=== PATIENT | male | born 1950 | race Caucasian/White ===

== ENCOUNTER 2016-09-01 06:02 | Inpatient (IN) | payer MEDICARE ==
[~2016-09-01] VITALS: Ht 182.9 cm; Wt 70.8 kg
[2016-09-01] VITALS (21 sets, daily range): BP systolic 76–199; BP diastolic 50–102
[~2016-09-01 06:02] MED LIST: ALBU2.5V14 IH; ALBU25PO2 INH; ASPI81TA2 PO; BUDE10.2 IH; CYAN10002 IJ; FOLI1TAB16 PO; HYDR-2666 PO; HYDR-2762 PO; HYDR1TAB26 PO; LEVO500T38 PO; LISI-338 PO; METO25TA9 PO; NITR0.4T6 SL; NITR1PAT11 TD; PHEN100C PO; PHEN100O3 PO; PHEN300C4 PO; PRED20TA PO; PROAIR HFA8.5 GM IH; RANI150T2 PO; SIMV40TA3 PO; SODI30SP NS; TIOT18CA IH
[2016-09-01] MEDS ORDERED: ONDANSETRON PF 4 MG/2 ML VIAL. IV ONE (06:30)
[2016-09-01] MEDS ORDERED: methylPREDNISolone SOD SUCC PF 125 MG/2 ML VIAL. IV ONE (06:30)
[2016-09-01] MEDS ORDERED: ALBUTEROL SULFATE 2.5 MG/3 ML NEBU. NEB ONE (06:30)
[2016-09-01 06:31] LABS: BASO # 0.1 x10^3/uL (0.0-0.2); BASO % 1 % (0-3); EOS % 1 % (0-3); HEMATOCRIT 44.7 % (39.0-53.0); HEMOGLOBIN 14.8 g/dL (13.0-17.5); LYMPH # 0.7 x10^3/uL (1.0-4.8); LYMPH % 8 % (24-48); MEAN CORPUSCULAR HEMOGLOBIN 32 pg (25-35); MEAN CORPUSCULAR HGB CONC 33 g/dL (31-37); MEAN CORPUSCULAR VOLUME 98 fL (79-100); MONO % 6 % (0-9); NEUT % 84 % (31-73); PLATELET COUNT 206 x10^3/uL (140-400); RED BLOOD COUNT 4.56 x10^6/uL (4.30-5.70); RED CELL DISTRIBUTION WIDTH 13.4 % (11.5-14.5); WHITE BLOOD COUNT 8.9 x10^3/uL (4.0-11.0)
[2016-09-01 06:38] LABS: CALCIUM 9.5 mg/dL (8.5-10.1); CREATININE 0.9 mg/dL (0.7-1.3); GFR 84.7; POTASSIUM 4.8 mmol/L (3.5-5.1)
--- NOTE | 2016-09-01 06:48 | EKG ---
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
[2016-09-01 06:53] LABS: ALBUMIN 4.5 g/dL (3.4-5.0); ALBUMIN/GLOBULIN RATIO 1.4 (1.0-1.7); TOTAL BILIRUBIN 0.4 mg/dL (0.2-1.0); TOTAL PROTEIN 7.8 g/dL (6.4-8.2)
[2016-09-01] MEDS ORDERED: IV NORMAL SALINE 1000ML BAG 1,000 ML IV SCH (07:05)
[2016-09-01] MEDS ORDERED: ONDANSETRON PF 4 MG/2 ML VIAL. IV PRN (07:15)
[2016-09-01] MEDS ORDERED: ACETAMINOPHEN 325 MG TABLET. PO PRN (07:15)
[2016-09-01] MEDS ORDERED: IV NORMAL SALINE 1000ML BAG 1,000 ML IV ONE (07:15)
[2016-09-01] MEDS ORDERED: FENTANYL PF 100 MCG/2 ML VIAL. IV PRN (07:15)
--- NOTE | 2016-09-01 07:28 | RAD ---
Indication shortness of air. AP views of the chest were obtained and are compared to an examination 02/06/2015. Underlying chronic changes are noted similar to the previous study. The heart and pulmonary vessels are within normal limits. A focal infiltrate is not seen. Significant pleural fluid is not present and there is no pneumothorax. A significant change relative to the previous plain film examination is not seen. IMPRESSION: Chronic changes. No acute process. No significant change
--- NOTE | 2016-09-01 07:33 | PHYS DOC ---
Past Medical History Past Medical History: COPD, High Cholesterol, Heart Disease, Hypertension, Lung Disease Past Surgical History: Angioplasty, Tonsillectomy, Other Additional Past Surgical Histo: R)lung(lower lobe-removed.)L)hand,Back tumor removed,L)foot Alcohol Use: None Drug Use: None Adult General Chief Complaint Chief Complaint: SHORTNESS OF BREATH HPI HPI 66-year-old male with a history of end-stage COPD along with multiple other medical problems presents in severe respiratory distress. Patient states he has had difficulty breathing for a few days now and became markedly worse this morning. He called EMS this morning and EMS reports that he was on his bed tripoding in severe distress. He was immediately placed on CPAP by EMS. EMS reports that he had multiple DuoNeb nebs prior to arrival. They did not give Solu-Medrol. Patient is unable to give much history secondary to severe respiratory distress Review of Systems Review of Systems Review of systems is unobtainable secondary to severe respiratory distress Current Medications Current Medications Current Medications Medications (Trade) Dose Ordered Sig/Marty Start Time Stop Time Status Last Admin Dose Admin Albuterol Sulfate 5 mg 5 mg 1X ONCE 09/01/16 06:30 09/01/16 06:31 DC 09/01/16 06:24 5 MG Methylprednisolone Sodium Succinate (Solu-Medrol 125mg Vial) 125 mg 1X ONCE 09/01/16 06:30 09/01/16 06:31 DC 09/01/16 06:21 125 MG Ondansetron HCl (Zofran) 4 mg 1X ONCE 09/01/16 06:30 09/01/16 06:31 DC 09/01/16 06:21 4 MG Sodium Chloride (Iv Sodium Chloride 0.9% 1000ml Bag) 1,000 ml @ 125 mls/hr Q8H 09/01/16 07:05 09/01/16 19:19 DC 09/01/16 09:53 125 MLS/HR Allergies Allergies Allergies Coded Allergies Type Severity Reaction Last Updated Verified No Known Drug Allergies 03/23/16 No Physical Exam Physical Exam Constitutional: Frail, cachectic acutely ill [] HENT: Normocephalic, atraumatic, bilateral external ears normal, oropharynx moist, no oral exudates, nose normal. [] Eyes: PERRLA, EOMI, conjunctiva normal, no discharge. [] Neck: Normal range of motion, no tenderness, supple, no stridor. [] Cardiovascular: Tachycardic no murmur [] Lungs & Thorax: Severe distress with subcostal and intercostal retractions, accessory muscle use diminished breath sounds bilaterally he is very tachypneic] Abdomen: Bowel sounds normal, soft, no tenderness, no masses, no pulsatile masses. [] Skin: Warm, dry, no erythema, no rash. [] Back: No tenderness, no CVA tenderness. [] Extremities: No tenderness, no cyanosis, no clubbing, ROM intact, no edema. [] Neurologic: Alert and oriented X 3, normal motor function, normal sensory function, no focal deficits noted. [] Psychologic: Anxious [] Current Patient Data Vital Signs Vital Signs Date Time Temp Pulse Resp B/P Pulse Ox O2 Delivery O2 Flow Rate FiO2 09/01/16 07:07 94 24 92/61 100 BiPAP/CPAP 09/01/16 06:23 99.1 99.1 Lab Values Laboratory Tests Test 09/01/16 06:15 White Blood Count 8.9x10^3/uL (4.0-11.0) Red Blood Count 4.56x10^6/uL (4.30-5.70) Hemoglobin 14.8g/dL (13.0-17.5) Hematocrit 44.7% (39.0-53.0) Mean Corpuscular Volume 98fL (79-100) Mean Corpuscular Hemoglobin 32pg (25-35) Mean Corpuscular Hemoglobin Concent 33g/dL (31-37) Red Cell Distribution Width 13.4% (11.5-14.5) Platelet Count 206x10^3/uL (140-400) Neutrophils (%) (Auto) 84% (31-73) H Lymphocytes (%) (Auto) 8% (24-48) L Monocytes (%) (Auto) 6% (0-9) Eosinophils (%) (Auto) 1% (0-3) Basophils (%) (Auto) 1% (0-3) Neutrophils # (Auto) 7.5x10^3uL (1.8-7.7) Lymphocytes # (Auto) 0.7x10^3/uL (1.0-4.8) L Monocytes # (Auto) 0.5x10^3/uL (0.0-1.1) Eosinophils # (Auto) 0.1x10^3/uL (0.0-0.7) Basophils # (Auto) 0.1x10^3/uL (0.0-0.2) Sodium Level 140mmol/L (136-145) Potassium Level 4.8mmol/L (3.5-5.1) Chloride Level 102mmol/L (98-107) Carbon Dioxide Level 34mmol/L (21-32) H Anion Gap 4 (6-14) L Blood Urea Nitrogen 10mg/dL (8-26) Creatinine 0.9mg/dL (0.7-1.3) Estimated GFR (Cockcroft-Gault) 84.7 BUN/Creatinine Ratio 11 (6-20) Glucose Level 147mg/dL (70-99) H Lactic Acid Level 2.4mmol/L (0.4-2.0) H Calcium Level 9.5mg/dL (8.5-10.1) Total Bilirubin 0.4mg/dL (0.2-1.0) Aspartate Amino Transferase (AST) 18U/L (15-37) Alanine Aminotransferase (ALT) 24U/L (16-63) Alkaline Phosphatase 105U/L (46-116) Troponin I Quantitative < 0.017ng/mL (0.000-0.055) RM-Nof-H-Type Natriuretic Peptide 70pg/mL (0-124) Total Protein 7.8g/dL (6.4-8.2) Albumin 4.5g/dL (3.4-5.0) Albumin/Globulin Ratio 1.4 (1.0-1.7) Phenytoin (Dilantin) Level 15.0mcg/mL (10.0-20.0) Phenytoin Last Dose Date 08/31/16 Phenytoin Last Dose Time 1800 Laboratory Tests 09/01/16 06:15 Laboratory Tests 09/01/16 06:15 Microbiology 09/01/16 Blood Culture - Preliminary, Resulted NO GROWTH AFTER 2 DAYS EKG EKG [EKG: Sinus tachycardia rate of [address]-T changes] Radiology/Procedures Radiology/Procedures [] Impressions: Chest x-ray: Hyperinflated lungs no evidence of infiltrate as interpreted by me Course & Med Decision Making Course & Med Decision Making Pertinent Labs and Imaging studies reviewed. (See chart for details) [CRITICAL CARE time was 30 minutes - time exclusive of any procedures performed. Care included medical management, x-ray/lab interpretation, discussions with the patient and their family as well as appropriate medical consultants. ED course: Evaluation reveals 66-year-old male in severe respiratory distress. He was started on BiPAP which by itself improved his symptoms. He was also given 125 Solu-Medrol [id number] albuterol nebulized breathing treatments and Levaquin 500 milligrams IV. I spoke with Dr. Gomez who agreed to accept the patient to the intensive care unit. We will also consult pulmonary to assist in the management of this patient.] Dragon Disclaimer Dragon Disclaimer This electronic medical record was generated, in whole or in part, using a voice recognition dictation system. Departure Departure Impression: Primary Impression: COPD (chronic obstructive pulmonary disease) with acute bronchitis Disposition: ADMITTED INPATIENT Admitting Physician: Dane Gomez Condition: CRITICAL Referrals: AMI COREY (PCP) BRENDA FLORIAN DO Sep 01, 2016 07:33
[2016-09-01] MEDS: IPRATRPIUM/ALBUTEROL 0.5/2.5MG 3 ML NEBU. NEB SCH ×4 (07:48→19:28)
[2016-09-01 07:53] LABS: HCO3 ABG 28 mmol/L (21-28); PCO2 ABG 51 mmHg (35-46); PH ABG 7.35 (7.35-7.45); PO2 ABG 167 mmHg (65-108); SAT O2 ABG 98 % (92-99)
[2016-09-01 08:06] LABS: FIO2 ABG 40
--- NOTE | 2016-09-01 09:35 | PDOC ---
Provider Note Provider Note Pt seen in icu ,H&P dictated. #[id number] CATALINO PAGAN MD Sep 01, 2016 09:35
[2016-09-01] MEDS ORDERED: HYDROCODONE/APAP 7.5/325MG TABLET. PO PRN (09:45)
[2016-09-01] MEDS ORDERED: IPRATRPIUM/ALBUTEROL 0.5/2.5MG 3 ML NEBU. NEB PRN (09:45)
[2016-09-01] MEDS ORDERED: NITROGLYCERIN SUBLINGUAL 0.4 MG BOTTLE OF 25. SL PRN (09:45)
[2016-09-01] MEDS ORDERED: PANTOPRAZOLE 40 MG TABLET. PO ONE (09:45)
--- NOTE | 2016-09-01 10:24 | PDOC ---
Provider Note Provider Note dictated DEONDRE GIORDANO MD Sep 01, 2016 10:24
[2016-09-01] MEDS ORDERED: BUDESONIDE 0.5 MG/2 ML NEBU NEB SCH (10:30)
--- NOTE | 2016-09-01 10:52 | ACF ---
Admit Criteria Forms Admit Criteria Forms Admit Criteria Forms COPD Clinical Indications for Admission to Inpatient Care (Place 'X' for any and all applicable criteria): Admission is indicated for ANY ONE of the following (1)(2)(3): [ ]I. Acute exacerbation by high-risk comorbidity (e.g., pneumonia, dysrhythmia, heart failure, pleural effusion, pneumothorax) or severe underlying COPD (e.g., steroid dependent) [X]II. Inpatient admission required rather than observation care (see Chronic Obstructive Pulmonary Disease: Observation Care) because of ANY ONE of the following: [ ]a) New or pre-existing signs or symptoms of COPD (eg, dyspnea or Tachypnea at rest or with minimal activity) that persist despite outpatient and observation care treatment [ ]b) New-onset hypoxemia (room air SaO2 less than 90%, PO2 less than 60 mm Hg (8.0 kPa)) that persists despite outpatient and observation care treatment [ ]c) Worsening of pre-existing hypoxemia (eg, new or increased requirement for supplemental oxygen to maintain oxygenation at baseline level) that persists despite outpatient and observation care treatment, with oxygen treatment needs performable only in acute inpatient setting [X]d) Hypercarbia (PCO2 greater than 40 mm Hg (5.3 kPa))-induced respiratory acidosis (pH less than 7.35) that persists despite outpatient and observation care treatment [ ]e) Supplemental oxygen or respiratory treatments for over 24 hours that are performable only in acute inpatient setting [ ]f) Chest tube placement with active evacuation (e.g., suction, drainage) (5) [ ]g) Other condition, treatment or monitoring requiring inpatient admission [ ]III. Planned invasive surgical or diagnostic procedures requiring acute- care hospitalization [ ]IV. Acute respiratory failure (e.g., uncompensated hypercarbia, severe hypoxemia) [ ]V. Severe comorbid condition (e.g., severe steroid myopathy, acute vertebral fracture) that has acutely worsened pulmonary function [ ]. Confusion state, lethargy, obtundation, stupor or coma Extended stay beyond goal length of stay may be needed for (31)(32): [ ]a ) Respiratory Failure. [ ]b) Severe or persisting hypoxemia or hypercarbia [ ]c) Severe or persistent dyspnea [ ]d) Comorbidities (e.g. chronic heart failure, atrial fibrillation with rapid response, pneumonia) [ ]e) Malnutrition The original [facility] content created by [facility] has been revised. The portions of the content which have been revised are identified through the use of italic text or in bold, and [facility] has neither reviewed nor approved the modified material. All other unmodified content is copyright [facility]. Please see references footnoted in the original [facility] edition 2016 ADRIANA DUMONT Sep 01, 2016 10:52
--- NOTE | 2016-09-01 11:12 | CONS ---
DATE OF CONSULTATION: ATTENDING PHYSICIAN: Dr. Gomez. REASON FOR CONSULTATION: Respiratory failure, COPD exacerbation and lung nodule. HISTORY OF PRESENT ILLNESS: The patient is a 66-year-old male who has history of oxygen-dependent chronic obstructive airway disease. He also has history of right lower lobectomy for tumor many years ago. He has been followed up for tiny lung nodules, which showed some mild growth in May. He was brought into the hospital complaining of increasing dyspnea, wheezing. He has had a cough, which was nonproductive. He was acidotic in the ER with ABGs with a pH of 7.35, pCO2 of 51, pO2 167 on 40% FIO2. He was kept on BiPAP. He feels better now, back to nasal cannula. He also has lost about 15-20 pounds in the last few months. Consultation requested for further evaluation and management. I have reviewed chest x-ray. It shows hyperinflated lungs and pulmonary hypertension, but no definite infiltrates. PAST MEDICAL HISTORY: Significant for end-stage COPD, oxygen dependent; history of dyslipidemia; history of tiny lung nodules, being followed by Dr. Lopez. PAST SURGICAL HISTORY: Angioplasty, tonsillectomy, right lower lobectomy many years ago. ALLERGIES: None. CURRENT MEDICATIONS: Reviewed as listed in the MRAD. REVIEW OF SYSTEMS: Twelve-point systems obtained. Pertinent positive discussed in my history of present illness, otherwise noncontributory. All systems that were negative were reviewed as well. SOCIAL HISTORY: Smoked for about at least 45 years. PHYSICAL EXAMINATION: VITAL SIGNS: Stable, pulse ox 95% on 3 liters, afebrile. HEENT: Sclerae nonicteric. NECK: Supple. LUNGS: Diminished breath sounds with bilateral expiratory wheezes anteriorly. CARDIOVASCULAR: Regular rate and rhythm. ABDOMEN: Soft, nontender. EXTREMITIES: With no pitting edema. LABORATORY DATA: Reviewed. BUN 10, creatinine 0.9. White cell count 8.9, hemoglobin is 14.8. IMPRESSION: 1. Teiwz-tl-jyhbwuw hypercapnic respiratory failure secondary to acute exacerbation of chronic obstructive pulmonary disease with diffuse bronchospasm. 2. History of oxygen-dependent chronic obstructive pulmonary disease. 3. 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 4. History of lung nodules, being followed by Dr. Lopez. Scheduled for a CT next week. He has ongoing weight loss and there is a tiny growth on the nodule on the May scan in the left upper lobe. I will repeat another scan today. 5. Most likely viral pneumonitis. RECOMMENDATIONS: 1. Influenza swab. 2. Continue nasal cannula. 3. BiPAP p.r.n. 4. Nebulizer treatment. 5. IV steroids. 6. Hold off metoprolol if bronchospasm does not resolve. 7. CT chest without contrast to assess for lung nodules. Discussed with Dr. Gomez, RN and RT. Critical care time 39 minutes. DEONDRE GIORDANO MD DR: RAYMOND/marilee JOB#: [id number] / [id number]
[2016-09-01] MEDS: ENOXAPARIN 40 MG/0.4 ML DISP.SYRIN. SQ SCH (11:18)
[2016-09-01] MEDS: LISINOPRIL 5 MG TABLET. PO SCH (11:19)
[2016-09-01] MEDS: FOLIC ACID 1 MG TABLET PO SCH (11:19)
[2016-09-01] MEDS: METOPROLOL SUCC 24HR ER 25 MG TAB.ER.24H. PO SCH (11:19)
[2016-09-01] MEDS: NITROGLYCERIN 0.6MG/HR PATCH. TD SCH (11:20)
[2016-09-01] MEDS: BUDESONIDE 0.5 MG/2 ML NEBU NEB SCH ×2 (11:35→19:28)
[2016-09-01 13:46] LABS: OBC FLU VALID
[2016-09-01] MEDS: methylPREDNISolone SOD SUCC PF 125 MG/2 ML VIAL. IV SCH ×2 (15:14→22:31)
[2016-09-01] MEDS ORDERED: HALOPERIDOL LACT 5 MG/ML VIAL. IVP ONE (16:15)
[2016-09-01] MEDS ORDERED: LORAZEPAM 2 MG/ML VIAL IV ONE (16:15)
[2016-09-01 17:50] LABS: HCO3 ABG 29 mmol/L (21-28); PO2 ABG 335 mmHg (65-108); SAT O2 ABG 99 % (92-99)
[2016-09-01 17:51] LABS: PCO2 ABG 54 mmHg (35-46); PH ABG 7.34 (7.35-7.45)
[2016-09-01 17:52] LABS: FIO2 ABG 70
[2016-09-01] MEDS ORDERED: PROPOFOL 10 MG/ML (100ML) VIAL. IV ONE (18:00)
[2016-09-01] MEDS ORDERED: SUCCINYLCHOLINE 200 MG/10 ML VIAL. ONE ×2 (18:00→18:03)
[2016-09-01] MEDS ORDERED: PROPOFOL 100 ML IV ONE ×2 (18:03→20:31)
--- NOTE | 2016-09-01 19:25 | RAD ---
PROCEDURE Abdomen, single view. HISTORY Nasogastric tube placement. FINDINGS A frontal view of the abdomen is obtained. There is a nasogastric tube within the stomach. There is a moderate to large amount of stool within the colon. There is no evidence of bowel obstruction. IMPRESSION Nasogastric tube within the stomach. Electronically signed by: Jillian Ortiz (Sep 01, 2016 19:24:03)
[2016-09-01] MEDS: ALBUTEROL SULFATE 2.5 MG/3 ML NEBU. NEB SCH (19:28)
--- NOTE | 2016-09-01 19:42 | RAD ---
PROCEDURE Chest, single view. HISTORY Intubation. FINDINGS Frontal views of the chest are obtained. There is an endotracheal tube within the mid trachea. There is a nasogastric tube within the stomach. There is lucency within the left superior thorax secondary to overlying artifact. There is also biapical lucency due to emphysema with subpleural bleb formation. There are anastomotic sutures with adjacent parenchymal scarring within the right lung apex. There is hyperinflation. The heart is normal in size. The costophrenic angles are excluded from the field of view. IMPRESSION 1. Endotracheal tube within the mid trachea and nasogastric tube within the stomach. 2. Emphysema with biapical bulla formation and right apical postoperative changes. 3. Lucency within the left upper thorax due to overlying artifact. The absence of this finding on both frontal images excludes pneumothorax. 4. Note is made that reported pulmonary nodules demonstrated on a prior CT are not well seen radiographically. Electronically signed by: Jillian Ortiz (Sep 01, 2016 19:41:08)
[2016-09-01 19:46] LABS: PH ABG 7.29 (7.35-7.45)
[2016-09-01 19:47] LABS: FIO2 ABG 60; HCO3 ABG 31 mmol/L (21-28); PCO2 ABG 67 mmHg (35-46); PO2 ABG 76 mmHg (65-108); SAT O2 ABG 94 % (92-99)
--- NOTE | 2016-09-01 19:51 | HP ---
ADMIT DATE: 09/01/2016 REASON FOR ADMISSION TO THE HOSPITAL: COPD with acute exacerbation, acute respiratory failure. HISTORY OF PRESENT ILLNESS: The patient is a 66-year-old male, patient of Dr. Torres, has history of chronic COPD. He is on home oxygen and nebulizer machine at home. He was having shortness of breath this morning, came to the Emergency Room, was given couple of treatments by paramedics in the Emergency Room and without much improvement, was given Solu-Medrol, was requiring BIPAP. The patient was admitted to the ICU after initial treatment. PAST MEDICAL HISTORY: Hypertension, COPD, heart disease, hyperlipidemia. PAST SURGICAL HISTORY: He has had cardiac cath, angioplasty, tonsillectomy, had a right lower lobe of the lung removed in the past. ALLERGIES: No known drug allergies. MEDICATIONS AT HOME: B12 shot once a month, DuoNeb and albuterol at home, aspirin 81 mg daily, Symbicort twice a day, folic acid 1 mg daily, hydrocodone q. 6, lisinopril 5 mg daily, metoprolol 25 mg daily, nitro 0.6 mg patch daily, Dilantin 200 mg at bedtime, simvastatin 40 mg daily, Spiriva 1 daily, on oxygen 2 liters at home 24 hours a day, and pulmonary machine at home. PERSONAL HISTORY: Smoked 1 pack for 30 years, quit recently. Denies alcohol or street drugs. FAMILY HISTORY: Positive for hypertension, heart disease. REVIEW OF SYSTEMS: Fourteen-system review: CARDIAC: No chest pain. LUNGS: Has some cough, wheezing. Denies any sputum. GASTROINTESTINAL: No nausea or vomiting. NEUROLOGICAL: No weakness. Rest of the 14 systems is reviewed and negative. PHYSICAL EXAMINATION: GENERAL: The patient is improved now, was in acute distress this morning, was put on CPAP. VITAL SIGNS: Temperature 99, pulse 104, respirations 24, blood pressure 183/92, 100% on BiPAP. HEENT: Head is atraumatic. Pupils equal. Oral cavity, slight congestion posterior pharynx. NECK: Supple. Thyroid not enlarged. JVD not elevated. CHEST: COPD pattern. CARDIOVASCULAR: S1, S2. LUNGS: Bilateral wheezing. ABDOMEN: Soft, bowel sounds present. EXTERNAL GENITALIA: No Harmon. RECTAL: Deferred. EXTREMITIES: No calf tenderness, edema. Pulses 1+. NEUROLOGIC: Cranial nerves intact. Power 5/5 in all extremities. LABORATORY DATA: Shows a white count of 9, hemoglobin 15, platelets are 206. Electrolytes show sodium 140, potassium 4.8, chloride 102, bicarb 34, BUN 10, creatinine 0.9, glucose 147. LFTs were normal. Troponin 0.017. BNP 70. Albumin 4.5. Chest x-ray, no acute process, COPD. EKG done, report is not available. FINAL IMPRESSION: 1. Acute respiratory failure, requiring BiPAP. 2. Acute chronic obstructive pulmonary disease with acute exacerbation. 3. Hypertension. 4. Hyperlipidemia. 5. History of seizures, on Dilantin. 6.h/o Lung surgery PLAN: At this time, admit to the hospital, hydrate with IV fluids, oxygen and breathing treatments, IV Solu-Medrol, DuoNeb 4 times daily, Solu-Medrol 125 q. 6. Check for influenza, sputum cultures. Pulmonary consult and see how the patient's condition improves. CATALINO PAGAN MD DR: BERNA/marilee JOB#: [id number] / [id number] I Masterson
[2016-09-01] MEDS: SIMVASTATIN 40 MG TABLET. PO SCH (21:00)
[2016-09-01] MEDS ORDERED: NON FORMULARY ITEM (Budesonide/Formoterol Fumarate (Symbicort 160-4.5 Mcg Inhaler) 10.2 GM IH SCH (21:00)
[2016-09-01] MEDS: PHENYTOIN SODIUM EXTENDED 100 MG CAPSULE PO SCH (21:00)
[2016-09-01] MEDS: PROPOFOL 100 ML IV PRN (21:07)
[2016-09-01] MEDS: IV DEXTROSE 5% 1,000 ML IV SCH (21:13)
[2016-09-01] MEDS: FENTANYL STANDARD PCA 30 ML IV PRN (21:13)
[2016-09-01] MEDS: MIDAZOLAM PREMIX 100 ML IV PRN (22:34)
[2016-09-02] VITALS (30 sets, daily range): BP systolic 69–141; BP diastolic 50–79
[2016-09-02] MEDS: FENTANYL STANDARD PCA 30 ML IV PRN ×2 (05:05→16:43)
[2016-09-02] MEDS: IPRATRPIUM/ALBUTEROL 0.5/2.5MG 3 ML NEBU. NEB SCH (05:16)
[2016-09-02] MEDS: BUDESONIDE 0.5 MG/2 ML NEBU NEB SCH ×2 (05:16→19:21)
[2016-09-02 06:16] LABS: BASO % 0 % (0-3); EOS % 0 % (0-3); HEMATOCRIT 36.8 % (39.0-53.0); HEMOGLOBIN 12.2 g/dL (13.0-17.5); LYMPH # 0.3 x10^3/uL (1.0-4.8); LYMPH % 5 % (24-48); MEAN CORPUSCULAR HEMOGLOBIN 33 pg (25-35); MEAN CORPUSCULAR HGB CONC 33 g/dL (31-37); MEAN CORPUSCULAR VOLUME 98 fL (79-100); MONO % 8 % (0-9); NEUT % 88 % (31-73); PLATELET COUNT 171 x10^3/uL (140-400); RED BLOOD COUNT 3.74 x10^6/uL (4.30-5.70); RED CELL DISTRIBUTION WIDTH 13.7 % (11.5-14.5); WHITE BLOOD COUNT 6.9 x10^3/uL (4.0-11.0)
[2016-09-02] MEDS: IV DEXTROSE 5% 1,000 ML IV SCH ×3 (06:23→20:50)
[2016-09-02] MEDS: methylPREDNISolone SOD SUCC PF 125 MG/2 ML VIAL. IV SCH ×3 (06:23→20:50)
[2016-09-02 06:28] LABS: CALCIUM 8.5 mg/dL (8.5-10.1); CREATININE 1.2 mg/dL (0.7-1.3); GFR 60.8; POTASSIUM 4.8 mmol/L (3.5-5.1)
[2016-09-02] MEDS ORDERED: PANTOPRAZOLE 40 MG TABLET. PO SCH (07:30)
[2016-09-02] MEDS ORDERED: IV NORMAL SALINE 1000ML BAG 1,000 ML IV ONE ×2 (08:00→10:45)
[2016-09-02 08:01] LABS: PLT ESTIMATE ADEQUATE (ADEQUATE)
[2016-09-02] MEDS ORDERED: ACETAMINOPHEN 325 MG TABLET. PO PRN (08:15)
[2016-09-02] MEDS ORDERED: VANCOMYCIN 1.5 GM in IV NORMAL SALINE 500ML BAG 500 ML IV ONE (08:30)
[2016-09-02] MEDS: ALBUTEROL SULFATE 2.5 MG/3 ML NEBU. NEB SCH ×4 (08:31→19:21)
[2016-09-02 08:48] LABS: HCO3 ABG 28 mmol/L (21-28); PH ABG 7.25 (7.35-7.45); PO2 ABG 181 mmHg (65-108); SAT O2 ABG 99 % (92-99)
[2016-09-02] MEDS: FOLIC ACID 1 MG TABLET PO SCH (08:50)
[2016-09-02] MEDS: ASPIRIN 81 MG TAB.CHEW PO SCH (08:50)
[2016-09-02] MEDS: ENOXAPARIN 40 MG/0.4 ML DISP.SYRIN. SQ SCH (08:51)
[2016-09-02] MEDS: LISINOPRIL 5 MG TABLET. PO SCH (08:51)
--- NOTE | 2016-09-02 08:51 | RAD ---
Indication respiratory failure. Lung nodules. Noncontrast imaging through the chest was performed. Note is made of a previous examinations 06/05/2016 and 02/03/2016. Endotracheal and nasogastric tubes are noted. Moderately extensive underlying emphysematous changes are noted. An acute parenchymal infiltrate in either lung is not seen. Previously seen nodule in the left upper lobe, image 182 series 3 appears slightly larger than on the examination 02/03/2016, measuring approximately 6.3 mm in greatest dimension whereas previously it measured 4.7. A small primary malignancy is not excluded. An additional finding is not seen. Known calcified granuloma in the left lower lobe is reproduced. IMPRESSION: Slight increase in size of noncalcified pulmonary nodule in the left upper lobe relative to an exam 02/03/2016. Small primary malignancy is not excluded. Underlying emphysematous changes. PQRS Compliance Statement: One or more of the following individualized dose reduction techniques were utilized for this examination: 1. Automated exposure control 2. Adjustment of the mA and/or kV according to patient size 3. Use of iterative reconstruction technique
[2016-09-02] MEDS: METOPROLOL SUCC 24HR ER 25 MG TAB.ER.24H. PO SCH (08:52)
[2016-09-02 08:55] LABS: FIO2 ABG 60; PCO2 ABG 65 mmHg (35-46)
[2016-09-02] MEDS: PIPERACILLIN/TAZOBACTAM 3.375 GM in IV NORMAL SALINE 50ML 50 ML IV SCH ×4 (08:57→23:53)
[2016-09-02] MEDS ORDERED: NON FORMULARY ITEM (Tiotropium Bromide (Spiriva) 18 MCG) IH SCH (09:00)
[2016-09-02] MEDS: NITROGLYCERIN 0.6MG/HR PATCH. TD SCH (09:00)
[2016-09-02] MEDS ORDERED: IV NORMAL SALINE 500ML BAG 500 ML IV ONE (09:00)
[2016-09-02] MEDS ORDERED: ACETAMINOPHEN 160 MG/5 ML ORAL.SUSP. PO PRN (09:15)
--- NOTE | 2016-09-02 09:18 | EKG ---
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
[2016-09-02 09:26] LABS: CKMB INDEX 1.7 % (0-4); CKMB MASS 10.7 ng/mL (0.0-3.6)
[2016-09-02] MEDS ORDERED: ACETAMINOPHEN 650 MG/20.3 ML SOLUTION. PO PRN (09:28)
[2016-09-02] MEDS: MIDAZOLAM PREMIX 100 ML IV PRN (09:36)
[2016-09-02] MEDS ORDERED: NOREPINEPHRINE VIAL 8 MG in IV NORMAL SALINE 250ML 250 ML IV PRN (09:45)
--- NOTE | 2016-09-02 09:54 | PDOC2 ---
TAZ HEDRICK BREAD PACKER 09/02/16 0954: CARDIAC CONSULT DATE OF CONSULT Date of Consult DATE: 09/02/16 TIME: 09:44 REASON FOR CONSULT Reason for Consult: Elevated troponin REFERRING PHYSICIAN Referring Physician: Dr. Gomez SOURCE Source: Caregiver, Chart review HISTORY OF PRESENT ILLNESS HISTORY OF PRESENT ILLNESS This is a 66 yo male, with a h/o COPD mild, non-obstructive CAD, HTN, and DLP, who presented with complaints of shortness of breath. HPI obtain from son and chart review as patient is intubated/sedated. Shortness of breath ongoing for the last couple of says. No recent illness/fevers that family is aware of. No CP , palpitations, or dizziness. Compliance with medication therapy. Apparently follows with [facility] communicable disease specialist, name unknown to family. PAST MEDICAL HISTORY Cardiovascular: CAD, HTN, Hyperlipidemia Pulmonary: COPD CENTRAL NERVOUS SYSTEM: Seizure GI: No pertinent hx Heme/Onc: Anemia NOS Hepatobiliary: No pertinent hx Psych: No pertinent hx Musculoskeletal: Osteoarthritis Rheumatologic: No pertinent hx Infectious disease: No pertinent hx ENT: No pertinent hx Renal/: No pertinent hx Endocrine: No pertinent hx Dermatology: No pertinent hx PAST SURGICAL HISTORY Past Surgical History: Tonsillectomy, Other (right lower lobecotmy ) FAMILY HISTORY Family History: Other (noncontributory ) SOCIAL HISTORY Smoke: Quit (5 yrs ago ) ALCOHOL: none Drugs: None Lives: with Family CURRENT MEDICATIONS CURRENT MEDICATIONS Current Medications Medications (Trade) Dose Ordered Sig/Marty Route PRN Reason Start Time Stop Time Status Last Admin Dose Admin Methylprednisolone Sodium Succinate (Solu-Medrol 125mg Vial) 125 mg Q8HRS IV 09/01/16 14:00 09/02/16 06:23 Aspirin (Children'S Aspirin) 243 mg DAILY PO 09/02/16 09:00 09/02/16 08:50 Folic Acid (Folic Acid) 1 mg DAILY PO 09/01/16 10:00 09/02/16 08:50 Lisinopril (Prinivil) 5 mg DAILY PO 09/01/16 10:00 09/01/16 11:19 Metoprolol Succinate (Toprol Xl) 25 mg DAILY PO 09/01/16 10:00 09/01/16 11:19 Nitroglycerin (Nitro-Dur 0.6mg) 1 patch DAILY TD 09/01/16 10:00 09/01/16 11:20 Enoxaparin Sodium (Lovenox 40mg Syringe) 40 mg Q24H SQ 09/01/16 10:00 09/02/16 08:51 Pantoprazole Sodium (Protonix) 40 mg DAILYAC PO 09/02/16 07:30 09/02/16 08:50 Pantoprazole Sodium (Protonix) 40 mg 1X ONCE PO 09/01/16 09:45 09/01/16 09:56 DC 09/01/16 11:19 Albuterol Sulfate (Ventolin Neb Soln) 2.5 mg RTQID NEB 09/01/16 12:00 09/02/16 08:31 Budesonide (Pulmicort) 0.5 mg RTBID NEB 09/01/16 11:00 09/02/16 05:16 Haloperidol Lactate (Haldol) 2 mg 1X ONCE IVP 09/01/16 16:15 09/01/16 16:16 DC 09/01/16 15:49 Lorazepam 0.25 mg 0.25 mg 1X ONCE IV 09/01/16 16:15 09/01/16 16:16 DC 09/01/16 15:47 Fentanyl Citrate 30 ml @ 0 mls/hr CONT PRN IV PROTOCOL 09/01/16 19:30 09/02/16 05:05 Midazolam HCl 100 ml @ 0 mls/hr CONT PRN IV SEE I/O RECORD 09/01/16 19:30 09/02/16 09:36 Propofol 100 ml @ 0 mls/hr CONT PRN IV SEE I/O RECORD 09/01/16 21:00 09/01/16 21:07 Dextrose 1,000 ml @ 125 mls/hr Q8H IV 09/01/16 21:30 09/02/16 06:23 Piperacillin Sod/ Tazobactam Sod/ Sodium Chloride (Zosyn/Iv Sodium Chloride 0.9% 50ml) 50 ml @ 100 mls/hr Q6HRS IV 09/02/16 09:00 09/02/16 08:57 Acetaminophen (Tylenol) 650 mg PRN Q8HRS PRN PO MILD PAIN / TEMP 09/02/16 08:15 09/02/16 08:49 ALLERGIES ALLERGIES: Coded Allergies: No Known Drug Allergies (Unverified , 8/29/16) ROS Review of System unobtainable General: YES: Chills PHYSICAL EXAM General: Other (intubated/sedated) HEENT: Atraumatic, Mucous membr. moist/pink Lungs: Clear to auscultation, Other (intubated ) Heart: Regular rate, Normal S1, Normal S2, Other (heart tones difficult to appreciapte ) Abdomen: Soft Extremities: No edema, Normal pulses Skin: No rashes, No significant lesion Neuro: Normal tone Psych/Mental Status: Other (unable to assess ) MUSCULOSKELETAL: Osteoarthritic changes both hands VITALS VITALS Vital Signs Date Time Temp Pulse Resp B/P Pulse Ox O2 Delivery O2 Flow Rate FiO2 09/02/16 08:52 101 96/68 09/02/16 08:26 100 Ventilator 09/02/16 07:00 24 09/02/16 00:00 97.7 97.7 09/01/16 15:00 15.0 LABS Lab: Laboratory Tests Test 09/01/16 13:00 09/01/16 13:20 09/01/16 17:45 09/01/16 18:45 Troponin I Quantitative 0.077ng/mL (0.000-0.055) 0.109ng/mL (0.000-0.055) Influenza Type A Antigen Negative (NEGATIVE) Influenza Type B Antigen Negative (NEGATIVE) O2 Saturation 99% (92-99) Arterial Blood pH 7.34 (7.35-7.45) Arterial Blood pCO2 at Patient Temp 54mmHg (35-46) Arterial Blood pO2 at Patient Temp 335mmHg (65-108) Arterial Blood HCO3 29mmol/L (21-28) Arterial Blood Base Excess 2mmol/L (-3-3) FiO2 70 Test 09/01/16 19:40 09/02/16 05:46 09/02/16 08:00 09/02/16 08:20 O2 Saturation 94% (92-99) 99% (92-99) Arterial Blood pH 7.29 (7.35-7.45) 7.25 (7.35-7.45) Arterial Blood pCO2 at Patient Temp 67mmHg (35-46) 65mmHg (35-46) Arterial Blood pO2 at Patient Temp 76mmHg (65-108) 181mmHg (65-108) Arterial Blood HCO3 31mmol/L (21-28) 28mmol/L (21-28) Arterial Blood Base Excess 3mmol/L (-3-3) -1mmol/L (-3-3) FiO2 60 60 White Blood Count 6.9x10^3/uL (4.0-11.0) Red Blood Count 3.74x10^6/uL (4.30-5.70) Hemoglobin 12.2g/dL (13.0-17.5) Hematocrit 36.8% (39.0-53.0) Mean Corpuscular Volume 98fL (79-100) Mean Corpuscular Hemoglobin 33pg (25-35) Mean Corpuscular Hemoglobin Concent 33g/dL (31-37) Red Cell Distribution Width 13.7% (11.5-14.5) Platelet Count 171x10^3/uL (140-400) Neutrophils (%) (Auto) 88% (31-73) Lymphocytes (%) (Auto) 5% (24-48) Monocytes (%) (Auto) 8% (0-9) Eosinophils (%) (Auto) 0% (0-3) Basophils (%) (Auto) 0% (0-3) Neutrophils # (Auto) 6.1x10^3uL (1.8-7.7) Lymphocytes # (Auto) 0.3x10^3/uL (1.0-4.8) Monocytes # (Auto) 0.5x10^3/uL (0.0-1.1) Eosinophils # (Auto) 0.0x10^3/uL (0.0-0.7) Basophils # (Auto) 0.0x10^3/uL (0.0-0.2) Segmented Neutrophils % 92% (35-66) Band Neutrophils % 1% (0-9) Lymphocytes % 3% (24-48) Monocytes % 4% (0-10) Platelet Estimate Adequate (ADEQUATE) Sodium Level 136mmol/L (136-145) Potassium Level 4.8mmol/L (3.5-5.1) Chloride Level 100mmol/L (98-107) Carbon Dioxide Level 32mmol/L (21-32) Anion Gap 4 (6-14) Blood Urea Nitrogen 19mg/dL (8-26) Creatinine 1.2mg/dL (0.7-1.3) Estimated GFR (Cockcroft-Gault) 60.8 Glucose Level 143mg/dL (70-99) Calcium Level 8.5mg/dL (8.5-10.1) Lactic Acid Level 1.0mmol/L (0.4-2.0) Creatine Kinase 639U/L (39-308) Creatine Kinase MB (Mass) 10.7ng/mL (0.0-3.6) Creatine Kinase MB Relative Index 1.7% (0-4) Troponin I Quantitative 0.053ng/mL (0.000-0.055) HEART CATH HEART CATH Conclusion Normal left main coronary artery. Mild non-obstructive CAD. Normal LV systolic function with visually estimated EF of 65% Recommendations Cardiac Risk Reduction Program DATE: 08/16/13 0838 ASSESSMENT/PLAN ASSESSMENT/PLAN 1. Elevated troponin 2. Acute respiratory failure with AE COPD; s/p intubation 09/01/16 3. Coronary artery disease, mild, non-obstructive dx per cath 07/2013 4. Hypotension 5. Hyperlipidemia 6. Lactic acidosis 7. ? viral pneumonitis 8. Seizure disorder Recommendations Trop peak 0.109; suspect demand mediated related to combination of malignant HTN , respiratory failure, and underlying infection Requiring pressor support; titrate as warranted. Hold metoprolol, lisinopril Obtain echo to assess LV function/ rule out WMA Check lipids Supportive care. Obtain cardiac records Continue management of respiratory failure per pulmonary Problems: DREW ABBASI MD 09/02/16 1809: CARDIAC CONSULT ALLERGIES ALLERGIES: Coded Allergies: No Known Drug Allergies (Unverified , 03/23/16) ASSESSMENT/PLAN ASSESSMENT/PLAN Patient seen and examined. Agree with above nurse practitioner note. 66-year-old male presenting with dyspnea in the setting of acute COPD exacerbation and likely febrile illness from a pneumonia or viral pneumonitis. From a cardiovascular perspective he has regular heart rate and rhythm. Echocardiac exam is within normal limits. Currently being treated with vasopressors, levophed Continue supportive care from a cardiac perspective. No further testing necessary at this time. Troponin elevation likely secondary to demand mediated ischemia. If after stabilization of his pulmonary issues he has any angina or persistent dyspnea then we could consider stress testing prior to discharge. Await outside hospital records. Problems: TAZ HEDRICK APRN Sep 02, 2016 09:54 DREW ABBASI MD Sep 02, 2016 18:09
--- NOTE | 2016-09-02 10:01 | RAD ---
Indication respiratory failure. A single view of the chest was obtained and is compared to a study one day earlier. Underlying emphysematous changes are noted. There has not been a significant change. Background emphysematous changes are noted. Endotracheal tube is above the jv and nasogastric tube is in the stomach. IMPRESSION: No acute finding. No significant change. Chronic changes are noted
--- NOTE | 2016-09-02 10:18 | PDOC ---
PROGRESS NOTES Subjective Subjective on vent, hypotensive on levophed Objective Objective Vital Signs Date Time Temp Pulse Resp B/P Pulse Ox O2 Delivery O2 Flow Rate FiO2 09/02/16 10:00 96/61 Ventilator 09/02/16 09:00 101.9 101.9 09/02/16 08:52 101 09/02/16 08:26 100 09/02/16 07:00 24 09/01/16 15:00 15.0 Intake and Output 09/02/16 07:00 Intake Total 3759 ml Output Total 1215 ml Balance 2544 ml Intake Oral 350 ml IV Total 3409 ml Output Urine Total 1115 ml Gastric Drainage Total 100 ml Physical Exam Abdomen: Soft Heart: Regular rate, Normal S1, Normal S2 Extremities: No edema General: Other (sedated) Lungs: Other (dec breath sounds) MUSCULOSKELETAL: Osteoarthritic changes both hands Neck: Supple COMMENT aashish, on vent ET tube Diagnosis Problem List Problems Medical Problems: (1) COPD (chronic obstructive pulmonary disease) with acute bronchitis Status: Acute Assessment Assessment Problems Medical Problems: (1) COPD (chronic obstructive pulmonary disease) with acute bronchitis Status: Acute FINAL IMPRESSION: Fever with sepsis 101 temp Hypotension on levophed . borderline elevated troponin. 1. Acute respiratory failure, requiring intubation 09/01/16 2. Acute chronic obstructive pulmonary disease with acute exacerbation failed BIPAP. 3. Hypotension. 4. Hyperlipidemia. 5. History of seizures, on Dilantin. 6.h/o Lung surgery PLAN: intubation 09/01/16 fluid challenge . Levophed. ct chest inc in lung nodules left side. spoke with pulmonary. iv antibiotics. id consulted. ekg cardiology consult. At this time, admit to the hospital, hydrate with IV fluids, oxygen and breathing treatments, IV Solu-Medrol, DuoNeb 4 times daily, Solu-Medrol 125 q. 6. Check for influenza, sputum cultures. Pulmonary consult and see how the patient's condition improves. Problems: Plan Plan of Care Problems Medical Problems: (1) COPD (chronic obstructive pulmonary disease) with acute bronchitis Status: Acute Comment Review of Relevant I have reviewed the following items reggie (where applicable) has been applied. Labs Laboratory Tests Test 09/01/16 13:00 09/01/16 13:20 09/01/16 17:45 09/01/16 18:45 Troponin I Quantitative 0.077ng/mL (0.000-0.055) 0.109ng/mL (0.000-0.055) Influenza Type A Antigen Negative (NEGATIVE) Influenza Type B Antigen Negative (NEGATIVE) O2 Saturation 99% (92-99) Arterial Blood pH 7.34 (7.35-7.45) Arterial Blood pCO2 at Patient Temp 54mmHg (35-46) Arterial Blood pO2 at Patient Temp 335mmHg (65-108) Arterial Blood HCO3 29mmol/L (21-28) Arterial Blood Base Excess 2mmol/L (-3-3) FiO2 70 Test 09/01/16 19:40 09/02/16 05:46 09/02/16 08:00 09/02/16 08:20 O2 Saturation 94% (92-99) 99% (92-99) Arterial Blood pH 7.29 (7.35-7.45) 7.25 (7.35-7.45) Arterial Blood pCO2 at Patient Temp 67mmHg (35-46) 65mmHg (35-46) Arterial Blood pO2 at Patient Temp 76mmHg (65-108) 181mmHg (65-108) Arterial Blood HCO3 31mmol/L (21-28) 28mmol/L (21-28) Arterial Blood Base Excess 3mmol/L (-3-3) -1mmol/L (-3-3) FiO2 60 60 White Blood Count 6.9x10^3/uL (4.0-11.0) Red Blood Count 3.74x10^6/uL (4.30-5.70) Hemoglobin 12.2g/dL (13.0-17.5) Hematocrit 36.8% (39.0-53.0) Mean Corpuscular Volume 98fL (79-100) Mean Corpuscular Hemoglobin 33pg (25-35) Mean Corpuscular Hemoglobin Concent 33g/dL (31-37) Red Cell Distribution Width 13.7% (11.5-14.5) Platelet Count 171x10^3/uL (140-400) Neutrophils (%) (Auto) 88% (31-73) Lymphocytes (%) (Auto) 5% (24-48) Monocytes (%) (Auto) 8% (0-9) Eosinophils (%) (Auto) 0% (0-3) Basophils (%) (Auto) 0% (0-3) Neutrophils # (Auto) 6.1x10^3uL (1.8-7.7) Lymphocytes # (Auto) 0.3x10^3/uL (1.0-4.8) Monocytes # (Auto) 0.5x10^3/uL (0.0-1.1) Eosinophils # (Auto) 0.0x10^3/uL (0.0-0.7) Basophils # (Auto) 0.0x10^3/uL (0.0-0.2) Segmented Neutrophils % 92% (35-66) Band Neutrophils % 1% (0-9) Lymphocytes % 3% (24-48) Monocytes % 4% (0-10) Platelet Estimate Adequate (ADEQUATE) Sodium Level 136mmol/L (136-145) Potassium Level 4.8mmol/L (3.5-5.1) Chloride Level 100mmol/L (98-107) Carbon Dioxide Level 32mmol/L (21-32) Anion Gap 4 (6-14) Blood Urea Nitrogen 19mg/dL (8-26) Creatinine 1.2mg/dL (0.7-1.3) Estimated GFR (Cockcroft-Gault) 60.8 Glucose Level 143mg/dL (70-99) Calcium Level 8.5mg/dL (8.5-10.1) Lactic Acid Level 1.0mmol/L (0.4-2.0) Creatine Kinase 639U/L (39-308) Creatine Kinase MB (Mass) 10.7ng/mL (0.0-3.6) Creatine Kinase MB Relative Index 1.7% (0-4) Troponin I Quantitative 0.053ng/mL (0.000-0.055) Microbiology 09/01/16 Blood Culture - Preliminary, Resulted NO GROWTH AFTER 1 DAY Medications Current Medications Acetaminophen (Tylenol) 650 mg PRN Q6HRS PRN PO MILD PAIN / TEMP; Start at 09:15; Stop 09/02/16 at 09:28; Status DC Acetaminophen (Tylenol) 650 mg PRN Q8HRS PRN PO MILD PAIN / TEMP Last administered on 09/02/16t 08:49; Start 09/02/16 at 08:15 Acetaminophen 650 mg 650 mg PRN Q6HRS PRN PO MILD PAIN / TEMP; Start 09/02/16 at 09:28 Albuterol Sulfate (Ventolin Neb Soln) 2.5 mg RTQID NEB Last administered on 09/02 08:31; Start 09/01/16 at 12:00 Aspirin (Children'S Aspirin) 243 mg DAILY PO Last administered on 09/02/16 08: 50; Start 09/02/16 at 09:00 Budesonide (Pulmicort) 0.5 mg RTBID NEB ; Start 09/01/16 at 10:30; Status Cancel Budesonide (Pulmicort) 0.5 mg RTBID NEB Last administered on 09/02/16 05:16; Start 09/01/16 at 11:00 Dextrose 1,000 ml @ 125 mls/hr Q8H IV Last administered on 09/02/16 06:23; Start 09/01/16 at 21:30 Fentanyl Citrate 30 ml @ 0 mls/hr CONT PRN IV PROTOCOL Last administered on 09/02 05:05; Start 09/01/16 at 19:30 Haloperidol Lactate (Haldol) 2 mg 1X ONCE IVP Last administered on 09/01/16 15 :49; Start 09/01/16 at 16:15; Stop 09/01/16 at 16:16; Status DC Levofloxacin/ Dextrose (LEVAQUIN 500mg PREMIX) 100 ml @ 100 mls/hr Q24H IV ; Start 09/02/16 at 10:00 Lorazepam 0.25 mg 0.25 mg 1X ONCE IV Last administered on 09/01/16 15:47; Start 09/01/16 at 16:15; Stop 09/01/16 at 16:16; Status DC Methylprednisolone Sodium Succinate (Solu-Medrol 125mg Vial) 125 mg Q8HRS IV Last administered on 09/02/16 06:23; Start 09/01/16 at 14:00 Midazolam HCl 100 ml @ 0 mls/hr CONT PRN IV SEE I/O RECORD Last administered on 09/02/16 09:36; Start 09/01/16 at 19:30 Non-Formulary Medication 10.2 gm BID IH ; Start 09/01/16 at 21:00; Status UNV Non-Formulary Medication 18 mcg DAILY IH ; Start 09/02/16 at 09:00; Status UNV Norepinephrine Bitartrate 8 mg/ Sodium Chloride 258 ml @ 0 mls/hr CONT PRN IV SEE I/O RECORD Last administered on 09/02/16 09:48; Start 09/02/16 at 09:45 Pantoprazole Sodium (Protonix) 40 mg DAILYAC PO Last administered on 09/02/16 08:50; Start 09/02/16 at 07:30 Phenytoin Sodium (Dilantin) 200 mg HS PO ; Start 09/01/16 at 21:00 Piperacillin Sod/ Tazobactam Sod/ Sodium Chloride (Zosyn/Iv Sodium Chloride 0.9 % 50ml) 50 ml @ 100 mls/hr Q6HRS IV Last administered on 09/02/16 08:57; Start 09/02/16 at 09:00 Propofol 100 ml @ As Directed STK-MED ONCE IV ; Start 09/01/16 at 20:31; Stop at 20:32; Status DC Propofol 100 ml @ 0 mls/hr CONT PRN IV SEE I/O RECORD Last administered on 21:07; Start 09/01/16 at 21:00 Propofol (Diprivan) 100 ml @ As Directed STK-MED ONCE IV ; Start 09/01/16 at 18: 03; Stop 09/01/16 at 18:04; Status DC Propofol (Diprivan) 1,000 mg STK-MED ONCE IV ; Start 09/01/16 at 18:00; Stop 09/02 at 08:19; Status DC Simvastatin (Zocor) 40 mg HS PO ; Start 09/01/16 at 21:00 Sodium Chloride 1,000 ml @ 1,000 mls/hr 1X ONCE IV Last administered on 09:49; Start 09/02/16 at 08:00; Stop 09/02/16 at 09:40; Status DC Sodium Chloride (Iv Sodium Chloride 0.9% 500ml Bag) 500 ml @ 500 mls/hr 1X ONCE IV Last administered on 09/02/16 09:49; Start 09/02/16 at 09:00; Stop at 09:59; Status DC Succinylcholine Chloride 200 mg 200 mg STK-MED ONCE .ROUTE ; Start 09/01/16 at 18 :00; Stop 09/02/16 at 08:19; Status DC Succinylcholine Chloride 200 mg 200 mg STK-MED ONCE .ROUTE ; Start 09/01/16 at 18 :03; Stop 09/01/16 at 18:04; Status DC Vancomycin HCl 1 each 1 each PRN DAILY PRN MC SEE COMMENTS; Start 09/02/16 at 08 :15 Vancomycin HCl/ Sodium Chloride (Iv Sodium Chloride 0.9% 500ml Bag) 500 ml @ 250 mls/hr 1X ONCE IV Last administered on 09/02/16t 09:50; Start 09/02/16 at 08 :30; Stop 09/02/16 at 10:29 Vitals/I & O Vital Sign - Last 24 Hours 09/01/16 09/01/16 09/01/16 09/01/16 11:00 11:19 11:19 11:38 Pulse 90 84 84 Resp 19 B/P 169/86 169/86 169/86 Pulse Ox 94 100 O2 Delivery Nasal Cannula BiPAP/CPAP O2 Flow Rate 3.0 09/01/16 09/01/16 09/01/16 09/01/16 12:00 12:00 12:50 13:00 Temp 98.2 98.2 Pulse 80 89 Resp 22 20 B/P 132/79 160/86 Pulse Ox 100 100 96 O2 Delivery BiPAP/CPAP Bi-pap BiPAP/CPAP BiPAP/CPAP 09/01/16 09/01/16 09/01/16 09/01/16 14:00 15:00 15:17 16:00 Temp 98.9 98.9 Pulse 78 112 116 Resp 20 42 26 B/P 115/72 199/102 157/77 Pulse Ox 100 90 96 100 O2 Delivery BiPAP/CPAP Venturi Mask BiPAP/CPAP BiPAP/CPAP O2 Flow Rate 15.0 09/01/16 09/01/16 09/01/16 09/01/16 16:00 16:54 17:00 18:00 Pulse 118 104 Resp 29 16 B/P 171/94 106/72 Pulse Ox 100 99 99 O2 Delivery Bi-pap BiPAP/CPAP BiPAP/CPAP Ventilator 09/01/16 09/01/16 09/01/16 09/01/16 18:26 19:00 19:32 20:00 Pulse 103 Resp 22 B/P 130/83 Pulse Ox 98 98 98 O2 Delivery Ventilator Ventilator Ventilator Mechanical Ventilator 09/01/16 09/01/16 09/01/16 09/01/16 20:00 20:30 21:00 21:05 Temp 98.5 98.5 Pulse 102 102 Resp 23 26 B/P 127/75 76/50 102/59 Pulse Ox 99 100 100 O2 Delivery Ventilator Ventilator Ventilator 09/01/16 09/01/16 09/01/16 09/01/16 21:13 21:30 22:00 23:00 Pulse 90 86 Resp 26 24 24 B/P 123/74 77/55 112/69 Pulse Ox 99 100 99 O2 Delivery Ventilator Ventilator 09/01/16 09/02/16 09/02/16 09/02/16 23:31 00:00 00:00 00:30 Temp 97.7 97.7 Pulse 88 Resp 24 B/P 99/72 108/72 Pulse Ox 100 99 O2 Delivery Ventilator Ventilator Mechanical Ventilator 09/02/16 09/02/16 09/02/16 09/02/16 01:00 01:30 02:00 03:00 Pulse 95 95 98 Resp 24 24 24 B/P 97/68 94/78 112/76 Pulse Ox 98 98 99 99 O2 Delivery Ventilator Ventilator Ventilator Ventilator 09/02/16 09/02/16 09/02/16 09/02/16 03:00 04:00 04:00 05:00 Pulse 92 102 Resp 24 24 B/P 90/56 141/79 Pulse Ox 99 99 100 O2 Delivery Ventilator Mechanical Ventilator Ventilator Ventilator 09/02/16 09/02/16 09/02/16 09/02/16 05:05 05:16 06:00 06:23 Pulse 107 Resp 24 24 24 B/P 105/69 Pulse Ox 100 100 99 99 O2 Delivery Ventilator Ventilator Ventilator Ventilator 09/02/16 09/02/16 09/02/16 09/02/16 07:00 08:00 08:00 08:26 Temp 101.6 101.6 Pulse 106 Resp 24 B/P 101/68 73/56 Pulse Ox 98 100 O2 Delivery Ventilator Ventilator Mechanical Ventilator Ventilator 09/02/16 09/02/16 09/02/16 09/02/16 08:30 08:51 08:52 09:00 Temp 101.9 101.9 Pulse 101 101 B/P 96/68 96/68 96/68 71/50 O2 Delivery Ventilator Ventilator 09/02/16 09/02/16 09:30 10:00 B/P 69/51 96/61 O2 Delivery Ventilator Ventilator Intake and Output 09/01/16 09/01/16 09/02/16 15:00 23:00 07:00 Intake Total 1350 ml 100 ml 2309 ml Output Total 435 ml 497 ml 283 ml Balance 915 ml -397 ml 2026 ml CATALINO PAGAN MD Sep 02, 2016 10:18
[2016-09-02] MEDS: VANCOMYCIN PER PHARMACY MC PRN (10:26)
--- NOTE | 2016-09-02 10:45 | PDOC ---
PULMONARY PROGRESS NOTES Subjective intubated evening of 09/01 AC mode Vitals Vital Signs Date Time Temp Pulse Resp B/P Pulse Ox O2 Delivery O2 Flow Rate FiO2 09/02/16 10:00 96/61 Ventilator 09/02/16 09:00 101.9 101.9 09/02/16 08:52 101 09/02/16 08:26 100 09/02/16 07:00 24 09/01/16 15:00 15.0 Lungs: Other (decrease bs) Cardiovascular: S1 Abdomen: Soft Extremities: No Edema Skin: Warm Labs Laboratory Tests Test 09/01/16 06:15 09/01/16 07:45 09/01/16 09:39 09/01/16 13:00 White Blood Count 8.9x10^3/uL (4.0-11.0) Red Blood Count 4.56x10^6/uL (4.30-5.70) Hemoglobin 14.8g/dL (13.0-17.5) Hematocrit 44.7% (39.0-53.0) Mean Corpuscular Volume 98fL (79-100) Mean Corpuscular Hemoglobin 32pg (25-35) Mean Corpuscular Hemoglobin Concent 33g/dL (31-37) Red Cell Distribution Width 13.4% (11.5-14.5) Platelet Count 206x10^3/uL (140-400) Neutrophils (%) (Auto) 84% (31-73) Lymphocytes (%) (Auto) 8% (24-48) Monocytes (%) (Auto) 6% (0-9) Eosinophils (%) (Auto) 1% (0-3) Basophils (%) (Auto) 1% (0-3) Neutrophils # (Auto) 7.5x10^3uL (1.8-7.7) Lymphocytes # (Auto) 0.7x10^3/uL (1.0-4.8) Monocytes # (Auto) 0.5x10^3/uL (0.0-1.1) Eosinophils # (Auto) 0.1x10^3/uL (0.0-0.7) Basophils # (Auto) 0.1x10^3/uL (0.0-0.2) Sodium Level 140mmol/L (136-145) Potassium Level 4.8mmol/L (3.5-5.1) Chloride Level 102mmol/L (98-107) Carbon Dioxide Level 34mmol/L (21-32) Anion Gap 4 (6-14) Blood Urea Nitrogen 10mg/dL (8-26) Creatinine 0.9mg/dL (0.7-1.3) Estimated GFR (Cockcroft-Gault) 84.7 BUN/Creatinine Ratio 11 (6-20) Glucose Level 147mg/dL (70-99) Lactic Acid Level 2.4mmol/L (0.4-2.0) 1.9mmol/L (0.4-2.0) Calcium Level 9.5mg/dL (8.5-10.1) Total Bilirubin 0.4mg/dL (0.2-1.0) Aspartate Amino Transf (AST/SGOT) 18U/L (15-37) Alanine Aminotransferase (ALT/SGPT) 24U/L (16-63) Alkaline Phosphatase 105U/L (46-116) Troponin I Quantitative < 0.017ng/mL (0.000-0.055) 0.077ng/mL (0.000-0.055) FS-Aku-K-Type Natriuretic Peptide 70pg/mL (0-124) Total Protein 7.8g/dL (6.4-8.2) Albumin 4.5g/dL (3.4-5.0) Albumin/Globulin Ratio 1.4 (1.0-1.7) Phenytoin (Dilantin) Level 15.0mcg/mL (10.0-20.0) Phenytoin Last Dose Date 08/31/16 Phenytoin Last Dose Time 1800 O2 Saturation 98% (92-99) Arterial Blood pH 7.35 (7.35-7.45) Arterial Blood pCO2 at Patient Temp 51mmHg (35-46) Arterial Blood pO2 at Patient Temp 167mmHg (65-108) Arterial Blood HCO3 28mmol/L (21-28) Arterial Blood Base Excess 2mmol/L (-3-3) FiO2 40 Test 09/01/16 13:20 09/01/16 17:45 09/01/16 18:45 09/01/16 19:40 Influenza Type A Antigen Negative (NEGATIVE) Influenza Type B Antigen Negative (NEGATIVE) O2 Saturation 99% (92-99) 94% (92-99) Arterial Blood pH 7.34 (7.35-7.45) 7.29 (7.35-7.45) Arterial Blood pCO2 at Patient Temp 54mmHg (35-46) 67mmHg (35-46) Arterial Blood pO2 at Patient Temp 335mmHg (65-108) 76mmHg (65-108) Arterial Blood HCO3 29mmol/L (21-28) 31mmol/L (21-28) Arterial Blood Base Excess 2mmol/L (-3-3) 3mmol/L (-3-3) FiO2 70 60 Troponin I Quantitative 0.109ng/mL (0.000-0.055) Test 09/02/16 05:46 09/02/16 08:00 09/02/16 08:20 White Blood Count 6.9x10^3/uL (4.0-11.0) Red Blood Count 3.74x10^6/uL (4.30-5.70) Hemoglobin 12.2g/dL (13.0-17.5) Hematocrit 36.8% (39.0-53.0) Mean Corpuscular Volume 98fL (79-100) Mean Corpuscular Hemoglobin 33pg (25-35) Mean Corpuscular Hemoglobin Concent 33g/dL (31-37) Red Cell Distribution Width 13.7% (11.5-14.5) Platelet Count 171x10^3/uL (140-400) Neutrophils (%) (Auto) 88% (31-73) Lymphocytes (%) (Auto) 5% (24-48) Monocytes (%) (Auto) 8% (0-9) Eosinophils (%) (Auto) 0% (0-3) Basophils (%) (Auto) 0% (0-3) Neutrophils # (Auto) 6.1x10^3uL (1.8-7.7) Lymphocytes # (Auto) 0.3x10^3/uL (1.0-4.8) Monocytes # (Auto) 0.5x10^3/uL (0.0-1.1) Eosinophils # (Auto) 0.0x10^3/uL (0.0-0.7) Basophils # (Auto) 0.0x10^3/uL (0.0-0.2) Segmented Neutrophils % 92% (35-66) Band Neutrophils % 1% (0-9) Lymphocytes % 3% (24-48) Monocytes % 4% (0-10) Platelet Estimate Adequate (ADEQUATE) Sodium Level 136mmol/L (136-145) Potassium Level 4.8mmol/L (3.5-5.1) Chloride Level 100mmol/L (98-107) Carbon Dioxide Level 32mmol/L (21-32) Anion Gap 4 (6-14) Blood Urea Nitrogen 19mg/dL (8-26) Creatinine 1.2mg/dL (0.7-1.3) Estimated GFR (Cockcroft-Gault) 60.8 Glucose Level 143mg/dL (70-99) Calcium Level 8.5mg/dL (8.5-10.1) O2 Saturation 99% (92-99) Arterial Blood pH 7.25 (7.35-7.45) Arterial Blood pCO2 at Patient Temp 65mmHg (35-46) Arterial Blood pO2 at Patient Temp 181mmHg (65-108) Arterial Blood HCO3 28mmol/L (21-28) Arterial Blood Base Excess -1mmol/L (-3-3) FiO2 60 Lactic Acid Level 1.0mmol/L (0.4-2.0) Creatine Kinase 639U/L (39-308) Creatine Kinase MB (Mass) 10.7ng/mL (0.0-3.6) Creatine Kinase MB Relative Index 1.7% (0-4) Troponin I Quantitative 0.053ng/mL (0.000-0.055) Laboratory Tests Test 09/01/16 13:00 09/01/16 13:20 09/01/16 17:45 09/01/16 18:45 Troponin I Quantitative 0.077ng/mL (0.000-0.055) 0.109ng/mL (0.000-0.055) Influenza Type A Antigen Negative (NEGATIVE) Influenza Type B Antigen Negative (NEGATIVE) O2 Saturation 99% (92-99) Arterial Blood pH 7.34 (7.35-7.45) Arterial Blood pCO2 at Patient Temp 54mmHg (35-46) Arterial Blood pO2 at Patient Temp 335mmHg (65-108) Arterial Blood HCO3 29mmol/L (21-28) Arterial Blood Base Excess 2mmol/L (-3-3) FiO2 70 Test 09/01/16 19:40 09/02/16 05:46 09/02/16 08:00 09/02/16 08:20 O2 Saturation 94% (92-99) 99% (92-99) Arterial Blood pH 7.29 (7.35-7.45) 7.25 (7.35-7.45) Arterial Blood pCO2 at Patient Temp 67mmHg (35-46) 65mmHg (35-46) Arterial Blood pO2 at Patient Temp 76mmHg (65-108) 181mmHg (65-108) Arterial Blood HCO3 31mmol/L (21-28) 28mmol/L (21-28) Arterial Blood Base Excess 3mmol/L (-3-3) -1mmol/L (-3-3) FiO2 60 60 White Blood Count 6.9x10^3/uL (4.0-11.0) Red Blood Count 3.74x10^6/uL (4.30-5.70) Hemoglobin 12.2g/dL (13.0-17.5) Hematocrit 36.8% (39.0-53.0) Mean Corpuscular Volume 98fL (79-100) Mean Corpuscular Hemoglobin 33pg (25-35) Mean Corpuscular Hemoglobin Concent 33g/dL (31-37) Red Cell Distribution Width 13.7% (11.5-14.5) Platelet Count 171x10^3/uL (140-400) Neutrophils (%) (Auto) 88% (31-73) Lymphocytes (%) (Auto) 5% (24-48) Monocytes (%) (Auto) 8% (0-9) Eosinophils (%) (Auto) 0% (0-3) Basophils (%) (Auto) 0% (0-3) Neutrophils # (Auto) 6.1x10^3uL (1.8-7.7) Lymphocytes # (Auto) 0.3x10^3/uL (1.0-4.8) Monocytes # (Auto) 0.5x10^3/uL (0.0-1.1) Eosinophils # (Auto) 0.0x10^3/uL (0.0-0.7) Basophils # (Auto) 0.0x10^3/uL (0.0-0.2) Segmented Neutrophils % 92% (35-66) Band Neutrophils % 1% (0-9) Lymphocytes % 3% (24-48) Monocytes % 4% (0-10) Platelet Estimate Adequate (ADEQUATE) Sodium Level 136mmol/L (136-145) Potassium Level 4.8mmol/L (3.5-5.1) Chloride Level 100mmol/L (98-107) Carbon Dioxide Level 32mmol/L (21-32) Anion Gap 4 (6-14) Blood Urea Nitrogen 19mg/dL (8-26) Creatinine 1.2mg/dL (0.7-1.3) Estimated GFR (Cockcroft-Gault) 60.8 Glucose Level 143mg/dL (70-99) Calcium Level 8.5mg/dL (8.5-10.1) Lactic Acid Level 1.0mmol/L (0.4-2.0) Creatine Kinase 639U/L (39-308) Creatine Kinase MB (Mass) 10.7ng/mL (0.0-3.6) Creatine Kinase MB Relative Index 1.7% (0-4) Troponin I Quantitative 0.053ng/mL (0.000-0.055) Medications Active Scripts Medications Dose Route/Sig Days Date Category Dilantin (Phenytoin Sodium Extended) 100 Mg Capsule 200 Mg PO HS 02/08/15 Rx Levaquin (Levofloxacin) 500 Mg Tablet 500 Mg PO DAILY06 02/08/15 Rx Prednisone 20 Mg Tablet 40 Mg PO DAILY 02/08/15 Rx Saline Nasal [place] (Sodium Chloride) 30 Ml [place] 30 Ml NS PRN PRN 02/04/15 Reported Proair Hfa Inhaler (Albuterol Sulfate) 8.5 Gm Hfa.aer.ad 2 Puff IH PRN Q4-6HRS PRN 02/04/15 Reported Cyanocobalamin Injection (Cyanocobalamin (Vitamin B-12)) 1,000 Mcg/1 Ml Vial 1,000 Mcg IJ QMONTH 02/04/15 Reported Hydrocodone-Apap 7.5-325 (Hydrocodone Bit/Acetaminophen) 1 Each Tablet 1 Tab PO BID PRN 02/04/15 Reported Albuterol Sulfate Conc Neb Soln (Albuterol Sulfate) 2.5 Mg/0.5 Ml Vial.neb 2.5 Mg IH PRN Q4HRS PRN 08/16/13 Reported NITRO-DUR 0.6mg/hr (Nitroglycerin) 1 Each Patch.td24 1 Each TD DAILY 08/16/13 Reported Symbicort 160-4.5 Mcg Inhaler (Budesonide/Formoterol Fumarate) 10.2 Gm Hfa.aer.ad 10.2 Gm IH BID 08/16/13 Reported Aspirin 81 Mg Tab.chew 243 Mg PO DAILY 08/16/13 Reported Metoprolol Succinate ( Xl ) (Metoprolol Succinate) 25 Mg Tab.er.24h 25 Mg PO DAILY 08/16/13 Reported NITROGLYCERIN SubLingual (Nitroglycerin) 0.4 Mg Tab.subl 0.4 Mg SL PRN 1X 08/16/13 Reported Folic Acid 1 Mg Tablet 1 Mg PO DAILY 08/16/13 Reported Lisinopril 5 Mg Tablet 5 Mg PO DAILY 08/16/13 Reported Spiriva (Tiotropium [place]) 18 Mcg Cap.w.dev 18 Mcg IH DAILY 08/16/13 Reported Simvastatin 40 Mg Tablet 40 Mg PO HS 08/16/13 Reported Comments CXR/ clear Impression . 1. Lzrly-yp-nqwiiee hypercapnic respiratory failure secondary to acute exacerbation of chronic obstructive pulmonary disease with diffuse bronchospasm. intubated 09/01 2. History of oxygen-dependent chronic obstructive pulmonary disease. 3. 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 4. History of lung nodules, being followed by Dr. Lopez. He has ongoing weight loss and there is a tiny growth on the nodule on the May scan in the left upper lobe. 5. Most likely viral pneumonitis. 6. Hypotension / fever, now sepsis, cxr clear Plan . 1. AC mode, low TV/ high rate, avoid volume trauma 2. Follow ABG/ ok with permissive hypercapnia 3. fluid bolus/ pressor 4. Nebulizer treatment. 5. IV steroids. 6. Hold off metoprolol , BP, low 7. CT chest without contrast further increase lung nodules Left lung (still too small) 8. BS antibiotic 9. Enteral nutrition d/w family, RN/RT cct 35 min DEONDRE GIORDANO MD Sep 02, 2016 10:45
[2016-09-02] MEDS: OSELTAMIVIR 75 MG CAPSULE PO SCH ×2 (11:30→20:50)
[2016-09-02 11:50] LABS: CHOLESTEROL/HDL RATIO 1.9
--- NOTE | 2016-09-02 11:51 | PDOC ---
Infectious Disease Note ROS ROS GEN: Denies fevers, chills, sweats HEENT: Denies blurred vision, sore throat CV: Denies chest pain RESP: Denies shortness of air, cough GI: Denies n/v/d NEURO: Denies confusion, dizziness MSK: Denies weakness, joint pain/swelling Vital Sign Vital Signs Vital Signs Date Time Temp Pulse Resp B/P Pulse Ox O2 Delivery O2 Flow Rate FiO2 09/02/16 11:00 100.9 68 27 104/61 99 Ventilator 100.9 09/01/16 15:00 15.0 Physical Exam PHYSICAL EXAM GENERAL: NAD, Alert HEENT: PERRL, OC/OP NECK: Supple, no JVD, no LN LUNGS: Clear HEART: S1S2, no gallop, no murmur ABD: Soft, NT, no organomegaly, no rebound EXT: No edema, no cyanosis RESP THER: Alert, oriented x 3, no focal neurologic deficit SKIN: No rash IV: ok Labs Lab Laboratory Tests Test 09/01/16 13:00 09/01/16 13:20 09/01/16 17:45 09/01/16 18:45 Troponin I Quantitative 0.077ng/mL (0.000-0.055) 0.109ng/mL (0.000-0.055) Influenza Type A Antigen Negative (NEGATIVE) Influenza Type B Antigen Negative (NEGATIVE) O2 Saturation 99% (92-99) Arterial Blood pH 7.34 (7.35-7.45) Arterial Blood pCO2 at Patient Temp 54mmHg (35-46) Arterial Blood pO2 at Patient Temp 335mmHg (65-108) Arterial Blood HCO3 29mmol/L (21-28) Arterial Blood Base Excess 2mmol/L (-3-3) FiO2 70 Test 09/01/16 19:40 09/02/16 05:46 09/02/16 08:00 09/02/16 08:20 O2 Saturation 94% (92-99) 99% (92-99) Arterial Blood pH 7.29 (7.35-7.45) 7.25 (7.35-7.45) Arterial Blood pCO2 at Patient Temp 67mmHg (35-46) 65mmHg (35-46) Arterial Blood pO2 at Patient Temp 76mmHg (65-108) 181mmHg (65-108) Arterial Blood HCO3 31mmol/L (21-28) 28mmol/L (21-28) Arterial Blood Base Excess 3mmol/L (-3-3) -1mmol/L (-3-3) FiO2 60 60 White Blood Count 6.9x10^3/uL (4.0-11.0) Red Blood Count 3.74x10^6/uL (4.30-5.70) Hemoglobin 12.2g/dL (13.0-17.5) Hematocrit 36.8% (39.0-53.0) Mean Corpuscular Volume 98fL (79-100) Mean Corpuscular Hemoglobin 33pg (25-35) Mean Corpuscular Hemoglobin Concent 33g/dL (31-37) Red Cell Distribution Width 13.7% (11.5-14.5) Platelet Count 171x10^3/uL (140-400) Neutrophils (%) (Auto) 88% (31-73) Lymphocytes (%) (Auto) 5% (24-48) Monocytes (%) (Auto) 8% (0-9) Eosinophils (%) (Auto) 0% (0-3) Basophils (%) (Auto) 0% (0-3) Neutrophils # (Auto) 6.1x10^3uL (1.8-7.7) Lymphocytes # (Auto) 0.3x10^3/uL (1.0-4.8) Monocytes # (Auto) 0.5x10^3/uL (0.0-1.1) Eosinophils # (Auto) 0.0x10^3/uL (0.0-0.7) Basophils # (Auto) 0.0x10^3/uL (0.0-0.2) Segmented Neutrophils % 92% (35-66) Band Neutrophils % 1% (0-9) Lymphocytes % 3% (24-48) Monocytes % 4% (0-10) Platelet Estimate Adequate (ADEQUATE) Sodium Level 136mmol/L (136-145) Potassium Level 4.8mmol/L (3.5-5.1) Chloride Level 100mmol/L (98-107) Carbon Dioxide Level 32mmol/L (21-32) Anion Gap 4 (6-14) Blood Urea Nitrogen 19mg/dL (8-26) Creatinine 1.2mg/dL (0.7-1.3) Estimated GFR (Cockcroft-Gault) 60.8 Glucose Level 143mg/dL (70-99) Calcium Level 8.5mg/dL (8.5-10.1) Lactic Acid Level 1.0mmol/L (0.4-2.0) Creatine Kinase 639U/L (39-308) Creatine Kinase MB (Mass) 10.7ng/mL (0.0-3.6) Creatine Kinase MB Relative Index 1.7% (0-4) Troponin I Quantitative 0.053ng/mL (0.000-0.055) Objective Assessment Fever Acute resp failure AECOPD H/o CAD Plan Plan of Care Agree with abx Resp viral panel Tamiflu F/u labs and cults Reviewed previous records. D/w Dr. Harris, Dr. Gomez/ and family 35 mins Thank you # [id number] DINORA FARFAN MD Sep 02, 2016 11:51
--- NOTE | 2016-09-02 14:38 | CARD ---
APPROVED REPORT EXAM: Two-dimensional and M-mode echocardiogram with Doppler and color Doppler. Other Information Quality : Technically Limited Rhythm : NSRTechnically limited study due to smoking. INDICATION Cardiac Disease: CAD Elevated troponin level 2D DIMENSIONS Left Atrium(2D)2.3 (1.6-4.0cm)IVSd1.1 (0.7-1.1cm) Aortic Root(2D)2.8 (2.0-3.7cm)LVDd4.1 (3.9-5.9cm) LVOT Diameter2.0 (1.8-2.4cm)PWd1.0 (0.7-1.1cm) LVDs2.9 (2.5-4.0cm)FS (%) 28.3 % SV40.5 mlLVEF(%)55.1 (>50%) Aortic Valve AoV Peak Lavelle.139.0cm/sAoV VTI24.0cm AO Peak GR.7.7mmHgLVOT VTI 16.08cm AO Mean GR.5mmHgAVA (VTI)2.07cm2 Mitral Valve MV E Qqhgcujz94.1cm/sMV E Peak Gr.4mmHg MV DECEL [id number] A Uxnotkcl14.9cm/s MV E Mean Gr.1mmHgMV [id number] E/A Ratio1.0MV A [id number] MVA (PHT)3.06cm2 TDI Lateral E' P. V9.18cm/sMedial E' P. V10.26cm/s E/Lateral E'9.2E/Medial E'8.2 Tricuspid Valve TR P. Pbjvmeem560vn/sRAP [id number] TR Peak Gr.08jeXlHGBB23taDe LEFT VENTRICLE The left ventricle is normal size. There is normal left ventricular wall thickness. Left ventricle sy stolic function is normal. The Ejection Fraction is 55%. There is normal LV segmental wall motion. Th e left ventricular diastolic function and filling is normal for age. RIGHT VENTRICLE The right ventricle is normal size. The right ventricular systolic function is normal. ATRIA The left atrium size is normal. The right atrium size is normal. The interatrial septum is intact wit h no evidence for an atrial septal defect or patent foramen ovale as noted on 2-D or Doppler imaging. AORTIC VALVE The aortic valve is calcified but opens well. The aortic valve is trileaflet. Doppler and Color Flow revealed trace aortic regurgitation. There is no significant aortic valvular stenosis. MITRAL VALVE The mitral valve leaflets are thickened. There is no mitral valve stenosis. Doppler and Color Flow re vealed no mitral valve regurgitation noted. TRICUSPID VALVE The tricuspid valve is normal in structure and function. Doppler and Color Flow revealed mild tricusp id regurgitation. There is mild pulmonary hypertension. The PA pressure was estimated at 45 mmHg. The re is no tricuspid valve stenosis. PULMONIC VALVE The pulmonic valve is not well visualized. Doppler and Color Flow revealed mild pulmonic valvular reg urgitation. There is no pulmonic valvular stenosis. GREAT VESSELS The aortic root is normal in size. The IVC is dilated and collapses <50% with inspiration. PERICARDIAL EFFUSION There is no evidence of significant pericardial effusion. Critical Notification Critical Value: No <Conclusion> Left ventricle systolic function is normal. The Ejection Fraction is 55%. There is normal LV segmental wall motion. Trace aortic regurgitation. Mild tricuspid regurgitation. There is mild pulmonary hypertension. The PA pressure was estimated at 45 mmHg. There is no evidence of significant pericardial effusion.
[2016-09-02] MEDS: PHENYTOIN SODIUM EXTENDED 100 MG CAPSULE PO SCH (20:50)
[2016-09-02] MEDS: SIMVASTATIN 40 MG TABLET. PO SCH (20:50)
[2016-09-03] VITALS (29 sets, daily range): BP systolic 78–220; BP diastolic 46–110
[2016-09-03] MEDS: FENTANYL STANDARD PCA 30 ML IV PRN ×2 (00:51→15:04)
[2016-09-03] MEDS: MIDAZOLAM PREMIX 100 ML IV PRN (00:52)
[2016-09-03] MEDS ORDERED: ALBUTEROL SULFATE 2.5 MG/3 ML NEBU. NEB ONE (03:30)
[2016-09-03] MEDS: IV DEXTROSE 5% 1,000 ML IV SCH (04:51)
[2016-09-03] MEDS: PIPERACILLIN/TAZOBACTAM 3.375 GM in IV NORMAL SALINE 50ML 50 ML IV SCH ×3 (06:06→17:18)
[2016-09-03] MEDS: methylPREDNISolone SOD SUCC PF 125 MG/2 ML VIAL. IV SCH ×3 (06:07→21:55)
[2016-09-03 07:01] LABS: BASO % 0 % (0-3); EOS % 0 % (0-3); HEMATOCRIT 33.8 % (39.0-53.0); HEMOGLOBIN 11.2 g/dL (13.0-17.5); LYMPH # 0.4 x10^3/uL (1.0-4.8); LYMPH % 9 % (24-48); MEAN CORPUSCULAR HEMOGLOBIN 33 pg (25-35); MEAN CORPUSCULAR HGB CONC 33 g/dL (31-37); MEAN CORPUSCULAR VOLUME 99 fL (79-100); MONO % 7 % (0-9); NEUT % 85 % (31-73); PLATELET COUNT 153 x10^3/uL (140-400); RED BLOOD COUNT 3.42 x10^6/uL (4.30-5.70); RED CELL DISTRIBUTION WIDTH 14.1 % (11.5-14.5); WHITE BLOOD COUNT 5.1 x10^3/uL (4.0-11.0)
[2016-09-03 07:05] LABS: CALCIUM 7.9 mg/dL (8.5-10.1); CREATININE 1.3 mg/dL (0.7-1.3); GFR 55.4; POTASSIUM 4.6 mmol/L (3.5-5.1)
--- NOTE | 2016-09-03 07:56 | PDOC ---
Infectious Disease Note Subjective Subjective Intubated/Sedated ROS ROS Unobtainable Vital Sign Vital Signs Vital Signs Date Time Temp Pulse Resp B/P Pulse Ox O2 Delivery O2 Flow Rate FiO2 09/03/16 06:00 48 28 86/59 100 Ventilator 09/03/16 04:00 98.6 98.6 Physical Exam PHYSICAL EXAM GENERAL: NAD, Intubted/sedated HEENT: PERRL - nml conj, OC/OP - ETT NECK: Supple, no JVD, no LN LUNGS: Clear HEART: S1S2, no gallop, no murmur ABD: Soft, NT, no organomegaly, no rebound [place] EXT: No edema, no cyanosis SKIRT TRIMMER: Sedated SKIN: No rash IV: Peripherals IV ok Labs Lab Laboratory Tests Test 09/02/16 08:00 09/02/16 08:20 09/02/16 16:55 09/03/16 06:15 O2 Saturation 99% (92-99) Arterial Blood pH 7.25 (7.35-7.45) Arterial Blood pCO2 at Patient Temp 65mmHg (35-46) Arterial Blood pO2 at Patient Temp 181mmHg (65-108) Arterial Blood HCO3 28mmol/L (21-28) Arterial Blood Base Excess -1mmol/L (-3-3) FiO2 60 Lactic Acid Level 1.0mmol/L (0.4-2.0) Creatine Kinase 639U/L (39-308) Creatine Kinase MB (Mass) 10.7ng/mL (0.0-3.6) Creatine Kinase MB Relative Index 1.7% (0-4) Troponin I Quantitative 0.053ng/mL (0.000-0.055) 0.030ng/mL (0.000-0.055) Sodium Level 138mmol/L (136-145) Potassium Level 4.6mmol/L (3.5-5.1) Chloride Level 107mmol/L (98-107) Carbon Dioxide Level 22mmol/L (21-32) Anion Gap 9 (6-14) Blood Urea Nitrogen 29mg/dL (8-26) Creatinine 1.3mg/dL (0.7-1.3) Estimated GFR (Cockcroft-Gault) 55.4 Glucose Level 160mg/dL (70-99) Calcium Level 7.9mg/dL (8.5-10.1) Test 09/03/16 06:17 White Blood Count 5.1x10^3/uL (4.0-11.0) Red Blood Count 3.42x10^6/uL (4.30-5.70) Hemoglobin 11.2g/dL (13.0-17.5) Hematocrit 33.8% (39.0-53.0) Mean Corpuscular Volume 99fL (79-100) Mean Corpuscular Hemoglobin 33pg (25-35) Mean Corpuscular Hemoglobin Concent 33g/dL (31-37) Red Cell Distribution Width 14.1% (11.5-14.5) Platelet Count 153x10^3/uL (140-400) Neutrophils (%) (Auto) 85% (31-73) Lymphocytes (%) (Auto) 9% (24-48) Monocytes (%) (Auto) 7% (0-9) Eosinophils (%) (Auto) 0% (0-3) Basophils (%) (Auto) 0% (0-3) Neutrophils # (Auto) 4.3x10^3uL (1.8-7.7) Lymphocytes # (Auto) 0.4x10^3/uL (1.0-4.8) Monocytes # (Auto) 0.4x10^3/uL (0.0-1.1) Eosinophils # (Auto) 0.0x10^3/uL (0.0-0.7) Basophils # (Auto) 0.0x10^3/uL (0.0-0.2) Objective Assessment Fever -better Hypotension on 2 mcq of Levophed Acute resp failure -Intubated AECOPD H/o CAD Plan Plan of Care Cont Vanc/Zosyn/Levoflox F/u Resp viral panel Cont Tamiflu F/u labs and cults Critically ill DINORA FARFAN MD Sep 03, 2016 07:56
--- NOTE | 2016-09-03 08:28 | RAD ---
Indication respiratory failure. Single view of the chest was obtained and is compared to an examination one day earlier. There has been little change. Endotracheal tube is well above the jv. Nasogastric tube is in the stomach. Heart and pulmonary vessels are similar. There is no focal consolidated pneumonia. IMPRESSION: No significant change when compared to yesterday's exam
[2016-09-03] MEDS: ENOXAPARIN 40 MG/0.4 ML DISP.SYRIN. SQ SCH (08:31)
[2016-09-03] MEDS: OSELTAMIVIR 75 MG CAPSULE PO SCH ×2 (08:31→21:55)
[2016-09-03] MEDS: PANTOPRAZOLE IV PUSH 40 MG VIAL. IVP SCH (08:31)
[2016-09-03] MEDS: ASPIRIN 81 MG TAB.CHEW PO SCH (08:32)
[2016-09-03] MEDS: FOLIC ACID 1 MG TABLET PO SCH (08:32)
[2016-09-03] MEDS: BUDESONIDE 0.5 MG/2 ML NEBU NEB SCH ×2 (09:03→19:42)
[2016-09-03] MEDS: ALBUTEROL SULFATE 2.5 MG/3 ML NEBU. NEB SCH ×3 (09:03→19:42)
[2016-09-03 09:21] LABS: HCO3 ABG 20 mmol/L (21-28); PCO2 ABG 44 mmHg (35-46); PH ABG 7.28 (7.35-7.45); PO2 ABG 131 mmHg (65-108); SAT O2 ABG 98 % (92-99)
[2016-09-03 09:24] LABS: FIO2 ABG 40
[2016-09-03] MEDS ORDERED: VANCOMYCIN 1 GM in IV NORMAL SALINE 250ML 250 ML IV SCH (10:00)
--- NOTE | 2016-09-03 10:16 | PDOC ---
PROGRESS NOTES Subjective Subjective on vent sedated Objective Objective Vital Signs Date Time Temp Pulse Resp B/P Pulse Ox O2 Delivery O2 Flow Rate FiO2 09/03/16 10:00 61 28 153/77 100 Ventilator 09/03/16 07:00 98.2 98.2 Intake and Output 09/03/16 07:00 Intake Total 4687 ml Output Total 892 ml Balance 3795 ml Intake Oral 0 ml IV Total 946 ml Tube Feeding 181 ml Other 3560 ml Output Urine Total 892 ml Physical Exam Abdomen: Soft Heart: Regular rate, Normal S1, Normal S2, Other (heart tones difficult to appreciapte ) Extremities: No edema, Normal pulses General: Other (intubated/sedated) HEENT: Atraumatic, Mucous membr. moist/pink Lungs: Clear to auscultation, Other (intubated ) MUSCULOSKELETAL: Osteoarthritic changes both hands Neck: Supple Neuro: Normal tone Psych/Mental Status: Other (unable to assess ) Skin: No rashes, No significant lesion COMMENT aashish, on vent ET tube Diagnosis Problem List Problems Medical Problems: (1) COPD (chronic obstructive pulmonary disease) with acute bronchitis Status: Acute Assessment Assessment Problems Medical Problems: (1) COPD (chronic obstructive pulmonary disease) with acute bronchitis Status: Acute FINAL IMPRESSION: resp failure on vent Fever with sepsis 101 temp Hypotension on levophed . borderline elevated troponin. 1. Acute respiratory failure, requiring intubation 09/01/16 2. Acute chronic obstructive pulmonary disease with acute exacerbation failed BIPAP. 3. Hypotension. 4. Hyperlipidemia. 5. History of seizures, on Dilantin. 6.h/o Lung surgery PLAN:iv antibiotics echo good LVF vent management intubation 09/01/16 fluid challenge . Levophed low dose. ct chest inc in lung nodules left side. spoke with pulmonary. iv antibiotics.iv steroids Tamiflue id consulted. ekg cardiology consult. Problems: Plan Plan of Care Problems Medical Problems: (1) COPD (chronic obstructive pulmonary disease) with acute bronchitis Status: Acute Comment Review of Relevant I have reviewed the following items reggie (where applicable) has been applied. Labs Laboratory Tests Test 09/02/16 16:55 09/03/16 06:15 09/03/16 06:17 09/03/16 09:10 Troponin I Quantitative 0.030ng/mL (0.000-0.055) Sodium Level 138mmol/L (136-145) Potassium Level 4.6mmol/L (3.5-5.1) Chloride Level 107mmol/L (98-107) Carbon Dioxide Level 22mmol/L (21-32) Anion Gap 9 (6-14) Blood Urea Nitrogen 29mg/dL (8-26) Creatinine 1.3mg/dL (0.7-1.3) Estimated GFR (Cockcroft-Gault) 55.4 Glucose Level 160mg/dL (70-99) Calcium Level 7.9mg/dL (8.5-10.1) White Blood Count 5.1x10^3/uL (4.0-11.0) Red Blood Count 3.42x10^6/uL (4.30-5.70) Hemoglobin 11.2g/dL (13.0-17.5) Hematocrit 33.8% (39.0-53.0) Mean Corpuscular Volume 99fL (79-100) Mean Corpuscular Hemoglobin 33pg (25-35) Mean Corpuscular Hemoglobin Concent 33g/dL (31-37) Red Cell Distribution Width 14.1% (11.5-14.5) Platelet Count 153x10^3/uL (140-400) Neutrophils (%) (Auto) 85% (31-73) Lymphocytes (%) (Auto) 9% (24-48) Monocytes (%) (Auto) 7% (0-9) Eosinophils (%) (Auto) 0% (0-3) Basophils (%) (Auto) 0% (0-3) Neutrophils # (Auto) 4.3x10^3uL (1.8-7.7) Lymphocytes # (Auto) 0.4x10^3/uL (1.0-4.8) Monocytes # (Auto) 0.4x10^3/uL (0.0-1.1) Eosinophils # (Auto) 0.0x10^3/uL (0.0-0.7) Basophils # (Auto) 0.0x10^3/uL (0.0-0.2) O2 Saturation 98% (92-99) Arterial Blood pH 7.28 (7.35-7.45) Arterial Blood pCO2 at Patient Temp 44mmHg (35-46) Arterial Blood pO2 at Patient Temp 131mmHg (65-108) Arterial Blood HCO3 20mmol/L (21-28) Arterial Blood Base Excess -6mmol/L (-3-3) FiO2 40 Microbiology 09/02/16 Blood Culture - Preliminary, Resulted NO GROWTH AFTER 1 DAY Medications Current Medications Albuterol Sulfate (Ventolin Neb Soln) 2.5 mg 1X ONCE NEB Last administered on 09/03/16 03:37; Start 09/03/16 at 03:30; Stop 09/03/16 at 03:39; Status DC Oseltamivir Phosphate (Tamiflu) 75 mg BID PO Last administered on 09/03/16 08: 31; Start 09/02/16 at 11:30; Stop 09/07/16 at 11:29 Pantoprazole Sodium (Protonix Vial) 40 mg DAILYAC IVP Last administered on 08:31; Start 09/03/16 at 07:30 Sodium Chloride (Iv Sodium Chloride 0.9% 1000ml Bag) 1,000 ml @ 1,000 mls/hr 1X ONCE IV Last administered on 09/02/16 10:42; Start 09/02/16 at 10:45; Stop 09/02/16 at 11:44; Status DC Vancomycin HCl 1 each 1 each 1X ONCE MC ; Start 09/04/16 at 09:30; Stop at 09:31 Vancomycin HCl/ Sodium Chloride (Iv Sodium Chloride 0.9% 250ml) 250 ml @ 250 mls/hr Q24H IV Last administered on 09/03/16 10:09; Start 09/03/16 at 10:00 Vitals/I & O Vital Sign - Last 24 Hours 09/02/16 09/02/16 09/02/16 09/02/16 11:00 11:56 12:00 12:00 Temp 100.9 98.9 100.9 98.9 Pulse 68 69 Resp 27 28 B/P 104/61 91/56 Pulse Ox 99 99 99 O2 Delivery Ventilator Ventilator Ventilator Mechanical Ventilator 09/02/16 09/02/16 09/02/16 09/02/16 13:00 13:10 14:00 15:00 Temp 98.4 98.4 Pulse 68 64 64 Resp 24 24 26 B/P 100/65 100/62 102/62 Pulse Ox 99 100 98 99 O2 Delivery Ventilator Ventilator Ventilator Ventilator 09/02/16 09/02/16 09/02/16 09/02/16 16:00 16:00 16:04 16:43 Pulse 64 Resp 24 16 B/P 90/62 Pulse Ox 99 100 100 O2 Delivery Ventilator Mechanical Ventilator Ventilator Ventilator 09/02/16 09/02/16 09/02/16 09/02/16 17:00 17:10 17:35 18:00 Pulse 62 57 Resp 24 24 24 B/P 90/58 112/64 Pulse Ox 98 100 100 97 O2 Delivery Ventilator Ventilator Ventilator Ventilator 09/02/16 09/02/16 09/02/16 09/02/16 19:00 19:21 20:00 20:00 Temp 98.6 98.6 Pulse 58 56 Resp 27 28 B/P 99/65 97/61 Pulse Ox 100 100 100 O2 Delivery Ventilator Ventilator Mechanical Ventilator Ventilator 09/02/16 09/02/16 09/02/16 09/02/16 21:00 21:10 21:30 22:00 Pulse 50 60 Resp 28 28 B/P 104/67 84/56 101/61 Pulse Ox 100 100 95 O2 Delivery Ventilator Ventilator Ventilator 09/02/16 09/02/16 09/02/16 09/02/16 22:15 22:30 23:00 23:40 Pulse 58 Resp 28 B/P 77/52 91/62 101/69 Pulse Ox 99 100 O2 Delivery Ventilator Ventilator 09/02/16 09/03/16 09/03/16 09/03/16 23:59 00:00 00:15 00:30 Temp 98.3 98.3 Pulse 60 Resp 28 B/P 116/74 78/51 79/53 Pulse Ox 99 O2 Delivery Mechanical Ventilator Ventilator 09/03/16 09/03/16 09/03/16 09/03/16 00:51 01:00 01:30 02:00 Pulse 60 54 Resp 28 28 28 B/P 78/53 85/59 Pulse Ox 100 99 100 100 O2 Delivery Ventilator Ventilator Ventilator Ventilator 09/03/16 09/03/16 09/03/16 09/03/16 03:00 03:37 04:00 04:00 Temp 98.6 98.6 Pulse 53 49 Resp 28 28 B/P 92/62 104/62 Pulse Ox 100 100 99 O2 Delivery Ventilator Ventilator Mechanical Ventilator Ventilator 09/03/16 09/03/16 09/03/16/9/17 05:00 05:10 05:15 06:00 Pulse 47 48 Resp 28 28 B/P 87/53 81/50 86/59 Pulse Ox 100 100 100 O2 Delivery Ventilator Ventilator Ventilator 09/03/16 09/03/16 09/03/16 09/03/16 07:00 07:59 08:07 09:00 Temp 98.2 98.2 Pulse 47 48 53 Resp 28 28 28 B/P 96/63 98/63 114/76 Pulse Ox 100 100 100 O2 Delivery Ventilator Mechanical Ventilator Ventilator Ventilator 09/03/16 09/03/16 09:04 10:00 Pulse 61 Resp 28 B/P 153/77 Pulse Ox 100 100 O2 Delivery Ventilator Ventilator Intake and Output 09/02/16 09/02/16 09/03/16 15:00 23:00 07:00 Intake Total 650 ml 246 ml 3791 ml Output Total 337 ml 285 ml 270 ml Balance 313 ml -39 ml 3521 ml CATALINO PAGAN MD Sep 03, 2016 10:16
[2016-09-03] MEDS: VANCOMYCIN PER PHARMACY MC PRN (10:21)
--- NOTE | 2016-09-03 10:29 | PDOC ---
PULMONARY PROGRESS NOTES Subjective intubated evening of 09/01 AC mode Vitals Vital Signs Date Time Temp Pulse Resp B/P Pulse Ox O2 Delivery O2 Flow Rate FiO2 09/03/16 10:00 61 28 153/77 100 Ventilator 09/03/16 07:00 98.2 98.2 Lungs: Other (decrease bs) Cardiovascular: S1 Abdomen: Soft Extremities: No Edema Skin: Warm Labs Laboratory Tests Test 09/01/16 13:00 09/01/16 13:20 09/01/16 17:45 09/01/16 18:45 Troponin I Quantitative 0.077ng/mL (0.000-0.055) 0.109ng/mL (0.000-0.055) Influenza Type A Antigen Negative (NEGATIVE) Influenza Type B Antigen Negative (NEGATIVE) O2 Saturation 99% (92-99) Arterial Blood pH 7.34 (7.35-7.45) Arterial Blood pCO2 at Patient Temp 54mmHg (35-46) Arterial Blood pO2 at Patient Temp 335mmHg (65-108) Arterial Blood HCO3 29mmol/L (21-28) Arterial Blood Base Excess 2mmol/L (-3-3) FiO2 70 Test 09/01/16 19:40 09/02/16 05:46 09/02/16 08:00 09/02/16 08:20 O2 Saturation 94% (92-99) 99% (92-99) Arterial Blood pH 7.29 (7.35-7.45) 7.25 (7.35-7.45) Arterial Blood pCO2 at Patient Temp 67mmHg (35-46) 65mmHg (35-46) Arterial Blood pO2 at Patient Temp 76mmHg (65-108) 181mmHg (65-108) Arterial Blood HCO3 31mmol/L (21-28) 28mmol/L (21-28) Arterial Blood Base Excess 3mmol/L (-3-3) -1mmol/L (-3-3) FiO2 60 60 White Blood Count 6.9x10^3/uL (4.0-11.0) Red Blood Count 3.74x10^6/uL (4.30-5.70) Hemoglobin 12.2g/dL (13.0-17.5) Hematocrit 36.8% (39.0-53.0) Mean Corpuscular Volume 98fL (79-100) Mean Corpuscular Hemoglobin 33pg (25-35) Mean Corpuscular Hemoglobin Concent 33g/dL (31-37) Red Cell Distribution Width 13.7% (11.5-14.5) Platelet Count 171x10^3/uL (140-400) Neutrophils (%) (Auto) 88% (31-73) Lymphocytes (%) (Auto) 5% (24-48) Monocytes (%) (Auto) 8% (0-9) Eosinophils (%) (Auto) 0% (0-3) Basophils (%) (Auto) 0% (0-3) Neutrophils # (Auto) 6.1x10^3uL (1.8-7.7) Lymphocytes # (Auto) 0.3x10^3/uL (1.0-4.8) Monocytes # (Auto) 0.5x10^3/uL (0.0-1.1) Eosinophils # (Auto) 0.0x10^3/uL (0.0-0.7) Basophils # (Auto) 0.0x10^3/uL (0.0-0.2) Segmented Neutrophils % 92% (35-66) Band Neutrophils % 1% (0-9) Lymphocytes % 3% (24-48) Monocytes % 4% (0-10) Platelet Estimate Adequate (ADEQUATE) Sodium Level 136mmol/L (136-145) Potassium Level 4.8mmol/L (3.5-5.1) Chloride Level 100mmol/L (98-107) Carbon Dioxide Level 32mmol/L (21-32) Anion Gap 4 (6-14) Blood Urea Nitrogen 19mg/dL (8-26) Creatinine 1.2mg/dL (0.7-1.3) Estimated GFR (Cockcroft-Gault) 60.8 Glucose Level 143mg/dL (70-99) Calcium Level 8.5mg/dL (8.5-10.1) Triglycerides Level 62mg/dL (0-150) Cholesterol Level 159mg/dL (0-200) LDL Cholesterol, Calculated 63mg/dL (0-100) VLDL Cholesterol, Calculated 12mg/dL (0-40) HDL Cholesterol 84mg/dL (40-60) Cholesterol/HDL Ratio 1.9 Lactic Acid Level 1.0mmol/L (0.4-2.0) Creatine Kinase 639U/L (39-308) Creatine Kinase MB (Mass) 10.7ng/mL (0.0-3.6) Creatine Kinase MB Relative Index 1.7% (0-4) Troponin I Quantitative 0.053ng/mL (0.000-0.055) Test 09/02/16 16:55 09/03/16 06:15 09/03/16 06:17 09/03/16 09:10 Troponin I Quantitative 0.030ng/mL (0.000-0.055) Sodium Level 138mmol/L (136-145) Potassium Level 4.6mmol/L (3.5-5.1) Chloride Level 107mmol/L (98-107) Carbon Dioxide Level 22mmol/L (21-32) Anion Gap 9 (6-14) Blood Urea Nitrogen 29mg/dL (8-26) Creatinine 1.3mg/dL (0.7-1.3) Estimated GFR (Cockcroft-Gault) 55.4 Glucose Level 160mg/dL (70-99) Calcium Level 7.9mg/dL (8.5-10.1) White Blood Count 5.1x10^3/uL (4.0-11.0) Red Blood Count 3.42x10^6/uL (4.30-5.70) Hemoglobin 11.2g/dL (13.0-17.5) Hematocrit 33.8% (39.0-53.0) Mean Corpuscular Volume 99fL (79-100) Mean Corpuscular Hemoglobin 33pg (25-35) Mean Corpuscular Hemoglobin Concent 33g/dL (31-37) Red Cell Distribution Width 14.1% (11.5-14.5) Platelet Count 153x10^3/uL (140-400) Neutrophils (%) (Auto) 85% (31-73) Lymphocytes (%) (Auto) 9% (24-48) Monocytes (%) (Auto) 7% (0-9) Eosinophils (%) (Auto) 0% (0-3) Basophils (%) (Auto) 0% (0-3) Neutrophils # (Auto) 4.3x10^3uL (1.8-7.7) Lymphocytes # (Auto) 0.4x10^3/uL (1.0-4.8) Monocytes # (Auto) 0.4x10^3/uL (0.0-1.1) Eosinophils # (Auto) 0.0x10^3/uL (0.0-0.7) Basophils # (Auto) 0.0x10^3/uL (0.0-0.2) O2 Saturation 98% (92-99) Arterial Blood pH 7.28 (7.35-7.45) Arterial Blood pCO2 at Patient Temp 44mmHg (35-46) Arterial Blood pO2 at Patient Temp 131mmHg (65-108) Arterial Blood HCO3 20mmol/L (21-28) Arterial Blood Base Excess -6mmol/L (-3-3) FiO2 40 Laboratory Tests Test 09/02/16 16:55 09/03/16 06:15 09/03/16 06:17 09/03/16 09:10 Troponin I Quantitative 0.030ng/mL (0.000-0.055) Sodium Level 138mmol/L (136-145) Potassium Level 4.6mmol/L (3.5-5.1) Chloride Level 107mmol/L (98-107) Carbon Dioxide Level 22mmol/L (21-32) Anion Gap 9 (6-14) Blood Urea Nitrogen 29mg/dL (8-26) Creatinine 1.3mg/dL (0.7-1.3) Estimated GFR (Cockcroft-Gault) 55.4 Glucose Level 160mg/dL (70-99) Calcium Level 7.9mg/dL (8.5-10.1) White Blood Count 5.1x10^3/uL (4.0-11.0) Red Blood Count 3.42x10^6/uL (4.30-5.70) Hemoglobin 11.2g/dL (13.0-17.5) Hematocrit 33.8% (39.0-53.0) Mean Corpuscular Volume 99fL (79-100) Mean Corpuscular Hemoglobin 33pg (25-35) Mean Corpuscular Hemoglobin Concent 33g/dL (31-37) Red Cell Distribution Width 14.1% (11.5-14.5) Platelet Count 153x10^3/uL (140-400) Neutrophils (%) (Auto) 85% (31-73) Lymphocytes (%) (Auto) 9% (24-48) Monocytes (%) (Auto) 7% (0-9) Eosinophils (%) (Auto) 0% (0-3) Basophils (%) (Auto) 0% (0-3) Neutrophils # (Auto) 4.3x10^3uL (1.8-7.7) Lymphocytes # (Auto) 0.4x10^3/uL (1.0-4.8) Monocytes # (Auto) 0.4x10^3/uL (0.0-1.1) Eosinophils # (Auto) 0.0x10^3/uL (0.0-0.7) Basophils # (Auto) 0.0x10^3/uL (0.0-0.2) O2 Saturation 98% (92-99) Arterial Blood pH 7.28 (7.35-7.45) Arterial Blood pCO2 at Patient Temp 44mmHg (35-46) Arterial Blood pO2 at Patient Temp 131mmHg (65-108) Arterial Blood HCO3 20mmol/L (21-28) Arterial Blood Base Excess -6mmol/L (-3-3) FiO2 40 Medications Active Scripts Medications Dose Route/Sig Days Date Category Dilantin (Phenytoin Sodium Extended) 100 Mg Capsule 200 Mg PO HS 02/08/15 Rx Levaquin (Levofloxacin) 500 Mg Tablet 500 Mg PO DAILY06 02/08/15 Rx Prednisone 20 Mg Tablet 40 Mg PO DAILY 02/08/15 Rx Saline Nasal [place] (Sodium Chloride) 30 Ml [place] 30 Ml NS PRN PRN 02/04/15 Reported Proair Hfa Inhaler (Albuterol Sulfate) 8.5 Gm Hfa.aer.ad 2 Puff IH PRN Q4-6HRS PRN 02/04/15 Reported Cyanocobalamin Injection (Cyanocobalamin (Vitamin B-12)) 1,000 Mcg/1 Ml Vial 1,000 Mcg IJ QMONTH 02/04/15 Reported Hydrocodone-Apap 7.5-325 (Hydrocodone Bit/Acetaminophen) 1 Each Tablet 1 Tab PO BID PRN 02/04/15 Reported Albuterol Sulfate Conc Neb Soln (Albuterol Sulfate) 2.5 Mg/0.5 Ml Vial.neb 2.5 Mg IH PRN Q4HRS PRN 08/16/13 Reported NITRO-DUR 0.6mg/hr (Nitroglycerin) 1 Each Patch.td24 1 Each TD DAILY 08/16/13 Reported Symbicort 160-4.5 Mcg Inhaler (Budesonide/Formoterol Fumarate) 10.2 Gm Hfa.aer.ad 10.2 Gm IH BID 08/16/13 Reported Aspirin 81 Mg Tab.chew 243 Mg PO DAILY 08/16/13 Reported Metoprolol Succinate ( Xl ) (Metoprolol Succinate) 25 Mg Tab.er.24h 25 Mg PO DAILY 08/16/13 Reported NITROGLYCERIN SubLingual (Nitroglycerin) 0.4 Mg Tab.subl 0.4 Mg SL PRN 1X 08/16/13 Reported Folic Acid 1 Mg Tablet 1 Mg PO DAILY 08/16/13 Reported Lisinopril 5 Mg Tablet 5 Mg PO DAILY 08/16/13 Reported Spiriva (Tiotropium [place]) 18 Mcg Cap.w.dev 18 Mcg IH DAILY 08/16/13 Reported Simvastatin 40 Mg Tablet 40 Mg PO HS 08/16/13 Reported Comments CXR/ clear/ ET high Impression . 1. [id number] hypercapnic respiratory failure secondary to acute exacerbation of chronic obstructive pulmonary disease with diffuse bronchospasm. intubated 2. History of oxygen-dependent chronic obstructive pulmonary disease. 3. 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 4. History of lung nodules, being followed by Dr. Lopez. He has ongoing weight loss and there is a tiny growth on the nodule on the May scan in the left upper lobe and further growth on recent scan 5. Most likely viral pneumonitis. 6. Hypotension / fever, now sepsis, cxr clear 7. New Non-AG Metabolic acidosis/?RTA Plan . 1. AC mode, low TV/ high rate, avoid volume trauma/ START WEANING SEDATION/ Possible CPAP trial onc [place] 2. Follow ABG/ correct bicarb 3. fluid bolus/ pressor wean 4. Nebulizer treatment. 5. IV steroids. 6. Hold off metoprolol , BP, low 7. CT chest without contrast further increase lung nodules Left lung (still too small)/ continue f/u ct in 4 months 8. BS antibiotic 9. Enteral nutrition 10.advance ET by 2 cm d/w DEONDRE Dodd MD Sep 03, 2016 10:29
[2016-09-03] MEDS ORDERED: SODIUM BICARB ADULT 8.4% 50 MEQ/50 ML DISP.SYRIN. IV ONE (10:30)
[2016-09-03 12:22] LABS: HCO3 ABG 23 mmol/L (21-28); PCO2 ABG 53 mmHg (35-46); PH ABG 7.26 (7.35-7.45); PO2 ABG 103 mmHg (65-108); SAT O2 ABG 97 % (92-99)
[2016-09-03 12:31] LABS: FIO2 ABG 40
[2016-09-03] MEDS: PROPOFOL 100 ML IV PRN ×2 (13:50→21:57)
--- NOTE | 2016-09-03 15:05 | CONS ---
DATE OF CONSULTATION: 09/02/2016 PATIENT'S ROOM: ICU 12. REQUESTING PHYSICIAN: Dr. Gomez. REASON FOR CONSULTATION: Fever. HISTORY OF PRESENT ILLNESS: The patient is intubated, sedated, unable to provide any past medical history, history of present illness is obtained mainly from the chart as well as family members. The patient is a gentleman lives at home with his and they do have a dog. He has not been around any acute illnesses as far as family members now, although his is currently not here. He is limited somewhat in his function secondary respiratory status, but he does try to get out and sometimes he spends some days down the car yard with his friends. Apparently, he developed a fairly quick onset of increased shortness of air and wheezing as well as a nonproductive cough, presented to [facility] Emergency Room on the having called EMS and having difficulty catching his breath. On arrival, white count was 8.9 with 84% neutrophils. Influenza screen was obtained and was negative. Chest x-ray was obtained, showed no acute finding. CT scan of his chest was performed today showed a slight increase in noncalcified pulmonary nodule left upper lobe small primary malignancy is not excluded. He had underlying emphysematous changes. Again, he had been initially afebrile, but this morning developed a temperature of 101.6 orally. He was placed on vancomycin, levofloxacin and Zosyn. Subsequently, has been intubated ____consulted. PAST MEDICAL HISTORY: Positive for end-stage COPD, oxygen dependent, dyslipidemia and lung nodules. PAST SURGICAL HISTORY: Positive for angioplasty, tonsillectomy, right lower lobectomy. REVIEW OF SYSTEMS: Unobtainable. ALLERGIES: No known drug allergies. SOCIAL HISTORY: He has been a smoker for about 45 years. 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 His family members do have a bird and rabbits, but he is not exposed to them much. FAMILY HISTORY: There is no acute illness or contacts currently. CURRENT MEDICATIONS: Include vancomycin, Zosyn, levofloxacin and propofol, albuterol, ____ aspirin, Haldol, Prinivil, Ativan, Solu-Medrol, Protonix. Other meds are available and reviewed in the chart. PHYSICAL EXAMINATION: VITAL SIGNS: T-max 101.9, currently 100.9, pulse 60, respirations 27, blood pressure 104/61 have been as low as 69/51. CONSTITUTIONAL: He is intubated and sedated. HEENT: His pupils are small, normal conjunctivae. NECK: Supple. LUNGS: Had decreased breath sounds. HEART: S1, S2. ABDOMEN: Soft, nontender, nondistended, positive bowel sounds. Harmon is in place. EXTREMITIES: No clubbing, cyanosis or gross edema. IV site is clean. SKIN: Warm to touch without signs of rash. LABORATORY DATA: White count today 6.9, hemoglobin 12.2, platelets of 171, neutrophils are 88 lymphs were 5, creatinine 12, glucose 143. Troponin initially 0.109, currently at 0.053. Creatinine kinase ____. Influenza screen was negative. Radiology reviewed in history of present illness. IMPRESSION: 1. Fever. 2. Respiratory failure. 3. Acute exacerbation of chronic obstructive pulmonary disease. 4. History of coronary artery disease. RECOMMENDATIONS: Agree with the antibiotics currently. However, we will obtain a respiratory viral panel, also begin Tamiflu and follow up on labs and cultures. Again, this was discussed with his family and also discussed with Dr. Harris and Dr. Gomez. I spent 35 minutes critical care time, I did review previous records. Dr. Gomez, thank you for allowing us to participate in the patient's care. If you have any questions, please do not hesitate to contact me. DINORA FARFAN MD DR: MEDHAT/marilee JOB#: [id number] / [id number]
[2016-09-03] MEDS: PHENYTOIN SODIUM EXTENDED 100 MG CAPSULE PO SCH (21:00)
[2016-09-03] MEDS: SIMVASTATIN 40 MG TABLET. PO SCH (21:55)
[2016-09-04] VITALS (24 sets, daily range): BP systolic 90–170; BP diastolic 52–98
[2016-09-04] MEDS: PIPERACILLIN/TAZOBACTAM 3.375 GM in IV NORMAL SALINE 50ML 50 ML IV SCH ×4 (00:24→16:57)
[2016-09-04] MEDS: FENTANYL STANDARD PCA 30 ML IV PRN ×3 (00:29→21:10)
[2016-09-04] MEDS: methylPREDNISolone SOD SUCC PF 125 MG/2 ML VIAL. IV SCH ×3 (05:45→21:07)
--- NOTE | 2016-09-04 06:42 | PDOC ---
Infectious Disease Note Subjective Subjective Intubated/Sedated ROS ROS Unable to obtain Vital Sign Vital Signs Vital Signs Date Time Temp Pulse Resp B/P Pulse Ox O2 Delivery O2 Flow Rate FiO2 09/04/16 06:00 54 28 107/64 100 Ventilator 09/04/16 04:00 97.4 97.4 Physical Exam PHYSICAL EXAM GENERAL: NAD, Intubted/sedated HEENT: PERRL - nml conj, OC/OP - ETT NECK: Supple, no JVD, no LN LUNGS: Coarse HEART: S1S2, no gallop, no murmur ABD: Soft, NT, no organomegaly, no rebound [place]on EXT: No edema, no cyanosis INSET CUTTER: Sedated SKIN: No rash IV: Peripherals IV ok Labs Lab Laboratory Tests Test 09/03/16 09:10 09/03/16 12:13 09/03/16 12:15 O2 Saturation 98% (92-99) 97% (92-99) Arterial Blood pH 7.28 (7.35-7.45) 7.26 (7.35-7.45) Arterial Blood pCO2 at Patient Temp 44mmHg (35-46) 53mmHg (35-46) Arterial Blood pO2 at Patient Temp 131mmHg (65-108) 103mmHg (65-108) Arterial Blood HCO3 20mmol/L (21-28) 23mmol/L (21-28) Arterial Blood Base Excess -6mmol/L (-3-3) -5mmol/L (-3-3) FiO2 40 40 Glucose (Fingerstick) 137mg/dL (70-99) Objective Assessment Fever -better Hypotension better of pressors Acute resp failure -Intubated AECOPD - on steroids H/o CAD Plan Plan of Care Cont Vanc/Zosyn/Levoflox F/u Resp viral panel Cont Tamiflu F/u labs in am and cults Critically ill DINORA FARFAN MD Sep 04, 2016 06:42
[2016-09-04 07:45] LABS: HCO3 ABG 22 mmol/L (21-28); PCO2 ABG 48 mmHg (35-46); PH ABG 7.27 (7.35-7.45); PO2 ABG 92 mmHg (65-108); SAT O2 ABG 96 % (92-99)
[2016-09-04 07:53] LABS: FIO2 ABG 40
[2016-09-04] MEDS: ALBUTEROL SULFATE 2.5 MG/3 ML NEBU. NEB SCH ×4 (07:57→20:25)
[2016-09-04] MEDS: BUDESONIDE 0.5 MG/2 ML NEBU NEB SCH ×2 (07:57→20:25)
[2016-09-04] MEDS ORDERED: SODIUM BICARB ADULT 8.4% 50 MEQ/50 ML DISP.SYRIN. IV ONE (08:00)
[2016-09-04] MEDS: OSELTAMIVIR 75 MG CAPSULE PO SCH ×2 (08:13→21:07)
[2016-09-04] MEDS: ENOXAPARIN 40 MG/0.4 ML DISP.SYRIN. SQ SCH (08:13)
[2016-09-04] MEDS: FOLIC ACID 1 MG TABLET PO SCH (08:13)
[2016-09-04] MEDS: PANTOPRAZOLE IV PUSH 40 MG VIAL. IVP SCH (08:13)
[2016-09-04] MEDS: ASPIRIN 81 MG TAB.CHEW PO SCH (08:14)
--- NOTE | 2016-09-04 10:03 | PDOC ---
PULMONARY PROGRESS NOTES Subjective intubated evening of 09/01 AC mode failed CPAP trial twice Vitals Vital Signs Date Time Temp Pulse Resp B/P Pulse Ox O2 Delivery O2 Flow Rate FiO2 09/04/16 09:39 29 96 Ventilator 09/04/16 09:00 105 151/77 09/04/16 07:00 98.2 98.2 Lungs: Other (decrease bs) Cardiovascular: S1 Abdomen: Soft Extremities: No Edema Skin: Warm Labs Laboratory Tests Test 09/02/16 16:55 09/02/16 22:03 09/03/16 06:15 09/03/16 06:17 Troponin I Quantitative 0.030ng/mL (0.000-0.055) Nasal Screen MRSA (PCR) Negative (Negative) Sodium Level 138mmol/L (136-145) Potassium Level 4.6mmol/L (3.5-5.1) Chloride Level 107mmol/L (98-107) Carbon Dioxide Level 22mmol/L (21-32) Anion Gap 9 (6-14) Blood Urea Nitrogen 29mg/dL (8-26) Creatinine 1.3mg/dL (0.7-1.3) Estimated GFR (Cockcroft-Gault) 55.4 Glucose Level 160mg/dL (70-99) Calcium Level 7.9mg/dL (8.5-10.1) White Blood Count 5.1x10^3/uL (4.0-11.0) Red Blood Count 3.42x10^6/uL (4.30-5.70) Hemoglobin 11.2g/dL (13.0-17.5) Hematocrit 33.8% (39.0-53.0) Mean Corpuscular Volume 99fL (79-100) Mean Corpuscular Hemoglobin 33pg (25-35) Mean Corpuscular Hemoglobin Concent 33g/dL (31-37) Red Cell Distribution Width 14.1% (11.5-14.5) Platelet Count 153x10^3/uL (140-400) Neutrophils (%) (Auto) 85% (31-73) Lymphocytes (%) (Auto) 9% (24-48) Monocytes (%) (Auto) 7% (0-9) Eosinophils (%) (Auto) 0% (0-3) Basophils (%) (Auto) 0% (0-3) Neutrophils # (Auto) 4.3x10^3uL (1.8-7.7) Lymphocytes # (Auto) 0.4x10^3/uL (1.0-4.8) Monocytes # (Auto) 0.4x10^3/uL (0.0-1.1) Eosinophils # (Auto) 0.0x10^3/uL (0.0-0.7) Basophils # (Auto) 0.0x10^3/uL (0.0-0.2) Test 09/03/16 09:10 09/03/16 12:13 09/03/16 12:15 09/04/16 07:35 O2 Saturation 98% (92-99) 97% (92-99) Arterial Blood pH 7.28 (7.35-7.45) 7.26 (7.35-7.45) Arterial Blood pCO2 at Patient Temp 44mmHg (35-46) 53mmHg (35-46) Arterial Blood pO2 at Patient Temp 131mmHg (65-108) 103mmHg (65-108) Arterial Blood HCO3 20mmol/L (21-28) 23mmol/L (21-28) Arterial Blood Base Excess -6mmol/L (-3-3) -5mmol/L (-3-3) FiO2 40 40 Glucose (Fingerstick) 137mg/dL (70-99) 162mg/dL (70-99) Test 09/04/16 08:00 O2 Saturation 96% (92-99) Arterial Blood pH 7.27 (7.35-7.45) Arterial Blood pCO2 at Patient Temp 48mmHg (35-46) Arterial Blood pO2 at Patient Temp 92mmHg (65-108) Arterial Blood HCO3 22mmol/L (21-28) Arterial Blood Base Excess -5mmol/L (-3-3) FiO2 40 Laboratory Tests Test 09/03/16 12:13 09/03/16 12:15 09/04/16 07:35 09/04/16 08:00 Glucose (Fingerstick) 137mg/dL (70-99) 162mg/dL (70-99) O2 Saturation 97% (92-99) 96% (92-99) Arterial Blood pH 7.26 (7.35-7.45) 7.27 (7.35-7.45) Arterial Blood pCO2 at Patient Temp 53mmHg (35-46) 48mmHg (35-46) Arterial Blood pO2 at Patient Temp 103mmHg (65-108) 92mmHg (65-108) Arterial Blood HCO3 23mmol/L (21-28) 22mmol/L (21-28) Arterial Blood Base Excess -5mmol/L (-3-3) -5mmol/L (-3-3) FiO2 40 40 Medications Active Scripts Medications Dose Route/Sig Days Date Category Dilantin (Phenytoin Sodium Extended) 100 Mg Capsule 200 Mg PO HS 02/08/15 Rx Levaquin (Levofloxacin) 500 Mg Tablet 500 Mg PO DAILY06 02/08/15 Rx Prednisone 20 Mg Tablet 40 Mg PO DAILY 02/08/15 Rx Saline Nasal [place] (Sodium Chloride) 30 Ml [place] 30 Ml NS PRN PRN 02/04/15 Reported Proair Hfa Inhaler (Albuterol Sulfate) 8.5 Gm Hfa.aer.ad 2 Puff IH PRN Q4-6HRS PRN 02/04/15 Reported Cyanocobalamin Injection (Cyanocobalamin (Vitamin B-12)) 1,000 Mcg/1 Ml Vial 1,000 Mcg IJ QMONTH 02/04/15 Reported Hydrocodone-Apap 7.5-325 (Hydrocodone Bit/Acetaminophen) 1 Each Tablet 1 Tab PO BID PRN 02/04/15 Reported Albuterol Sulfate Conc Neb Soln (Albuterol Sulfate) 2.5 Mg/0.5 Ml Vial.neb 2.5 Mg IH PRN Q4HRS PRN 08/16/13 Reported NITRO-DUR 0.6mg/hr (Nitroglycerin) 1 Each Patch.td24 1 Each TD DAILY 08/16/13 Reported Symbicort 160-4.5 Mcg Inhaler (Budesonide/Formoterol Fumarate) 10.2 Gm Hfa.aer.ad 10.2 Gm IH BID 08/16/13 Reported Aspirin 81 Mg Tab.chew 243 Mg PO DAILY 08/16/13 Reported Metoprolol Succinate ( Xl ) (Metoprolol Succinate) 25 Mg Tab.er.24h 25 Mg PO DAILY 08/16/13 Reported NITROGLYCERIN SubLingual (Nitroglycerin) 0.4 Mg Tab.subl 0.4 Mg SL PRN 1X 08/16/13 Reported Folic Acid 1 Mg Tablet 1 Mg PO DAILY 08/16/13 Reported Lisinopril 5 Mg Tablet 5 Mg PO DAILY 08/16/13 Reported Spiriva (Tiotropium [place]) 18 Mcg Cap.w.dev 18 Mcg IH DAILY 08/16/13 Reported Simvastatin 40 Mg Tablet 40 Mg PO HS 08/16/13 Reported Comments CXR/ clear/ ET high Impression . 1. Czqsz-sp-hpfeuim hypercapnic respiratory failure secondary to acute exacerbation of chronic obstructive pulmonary disease with diffuse bronchospasm. intubated 09/01/ ,resolved wheezing 2. History of oxygen-dependent chronic obstructive pulmonary disease. 3. 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 4. History of lung nodules, being followed by Dr. Lopez. He has ongoing weight loss and there is a tiny growth on the nodule on the May scan in the left upper lobe and further growth on recent scan 5. Most likely viral pneumonitis. 6. Hypotension / fever, sepsis, cxr clear 7. New Non-AG Metabolic acidosis/?RTA/ resulting in increase min ventilation Plan . 1. AC mode, low TV/ high rate, avoid volume trauma/ Failed CPAP trial twice since yesterday 2. Follow ABG/ correct bicarb, start drip 3. off pressor 4. Nebulizer treatment. 5. IV steroids. 6. Hold off metoprolol , BP, low 7. CT chest without contrast further increase lung nodules Left lung (still too small)/ continue f/u ct in 4 months 8. BS antibiotic 9. Enteral nutrition 10.advance ET by 2 cm d/w family/ cct 25 min DEONDRE GIORDANO MD Sep 04, 2016 10:03
[2016-09-04] MEDS: VANCOMYCIN PER PHARMACY MC PRN (10:42)
[2016-09-04 10:51] LABS: CALCIUM 8.2 mg/dL (8.5-10.1); CREATININE 1.1 mg/dL (0.7-1.3); GFR 67.2; MAGNESIUM 2.3 mg/dL (1.8-2.4); POTASSIUM 4.2 mmol/L (3.5-5.1)
[2016-09-04] MEDS ORDERED: SODIUM BICARBONATE VIAL 150 MEQ in IV DEXTROSE 5% 1,000 ML IV SCH (11:00)
--- NOTE | 2016-09-04 11:01 | RAD ---
Portable AP semierect upright chest x-ray performed at 0612 Indications: Respiratory failure. Follow-up study. Comparison: September 03, 2016. IMPRESSION: There have been no interval tube or line changes. No new lung infiltrate or pulmonary edema or pleural effusion or pneumothorax is seen. The heart size and mediastinum are stable.
[2016-09-04] MEDS: VANCOMYCIN 1 GM in IV NORMAL SALINE 250ML 250 ML IV SCH ×2 (11:18→21:08)
[2016-09-04 11:55] LABS: HEMATOCRIT 33.3 % (39.0-53.0); HEMOGLOBIN 10.9 g/dL (13.0-17.5); RED BLOOD COUNT 3.4 x10^6/uL (4.30-5.70); WHITE BLOOD COUNT 7.9 x10^3/uL (4.0-11.0)
[2016-09-04] MEDS: PROPOFOL 100 ML IV PRN ×2 (13:19→21:09)
[2016-09-04] MEDS: PHENYTOIN 100 MG/4 ML ORAL.SUSP. PEG SCH ×2 (15:05→21:07)
--- NOTE | 2016-09-04 16:02 | PDOC ---
PROGRESS NOTES Subjective Subjective pt on vent awake ,want tube out Objective Objective Vital Signs Date Time Temp Pulse Resp B/P Pulse Ox O2 Delivery O2 Flow Rate FiO2 09/04/16 15:00 58 28 128/72 99 Ventilator 09/04/16 14:00 98.6 98.6 Intake and Output 09/04/16 07:00 Intake Total 2362.35 ml Output Total 1113 ml Balance 1249.35 ml IV Total 965.35 ml Tube Feeding 1022 ml Other 375 ml Output Urine Total 1113 ml Gastric Drainage Total 0 ml Physical Exam Abdomen: Soft Heart: Regular rate, Normal S1, Normal S2, Other (heart tones difficult to appreciapte ) Extremities: No edema, Normal pulses General: Other (intubated/sedated) HEENT: Atraumatic, Mucous membr. moist/pink Lungs: Clear to auscultation, Other (intubated ) MUSCULOSKELETAL: Osteoarthritic changes both hands Neck: Supple Neuro: Normal tone Psych/Mental Status: Other (unable to assess ) Skin: No rashes, No significant lesion COMMENT aashish, on vent ET tube Diagnosis Problem List Problems Medical Problems: (1) COPD (chronic obstructive pulmonary disease) with acute bronchitis Status: Acute Assessment Assessment Problems Medical Problems: (1) COPD (chronic obstructive pulmonary disease) with acute bronchitis Status: Acute FINAL IMPRESSION: Ac resp failure on vent Fever with sepsis 101 temp Hypotension on levophed . borderline elevated troponin. 1. Acute respiratory failure, requiring intubation 09/01/16 2. Acute chronic obstructive pulmonary disease with acute exacerbation failed BIPAP. 3. Hypotension. 4. Hyperlipidemia. 5. History of seizures, on Dilantin. 6.h/o Lung surgery PLAN:trying weaning parameters not ready to extubate,hyperventilating spoke with pulmonary+id iv antibiotics echo good LVF vent management intubation 09/01/16 fluid challenge . Levophed low dose. ct chest inc in lung nodules left side. spoke with pulmonary. iv antibiotics.iv steroids Tamiflue id consulted. ekg cardiology consult. Problems: Plan Plan of Care Problems Medical Problems: (1) COPD (chronic obstructive pulmonary disease) with acute bronchitis Status: Acute Comment Review of Relevant I have reviewed the following items reggie (where applicable) has been applied. Labs Laboratory Tests Test 09/04/16 07:35 09/04/16 08:00 09/04/16 09:27 09/04/16 10:40 Glucose (Fingerstick) 162mg/dL (70-99) O2 Saturation 96% (92-99) Arterial Blood pH 7.27 (7.35-7.45) Arterial Blood pCO2 at Patient Temp 48mmHg (35-46) Arterial Blood pO2 at Patient Temp 92mmHg (65-108) Arterial Blood HCO3 22mmol/L (21-28) Arterial Blood Base Excess -5mmol/L (-3-3) FiO2 40 Sodium Level 145mmol/L (136-145) Potassium Level 4.2mmol/L (3.5-5.1) Chloride Level 108mmol/L (98-107) Carbon Dioxide Level 27mmol/L (21-32) Anion Gap 10 (6-14) Blood Urea Nitrogen 30mg/dL (8-26) Creatinine 1.1mg/dL (0.7-1.3) Estimated GFR (Cockcroft-Gault) 67.2 Glucose Level 171mg/dL (70-99) Calcium Level 8.2mg/dL (8.5-10.1) Magnesium Level 2.3mg/dL (1.8-2.4) Vancomycin Level Trough 5.1mcg/mL (10.0-20.0) Vancomycin Last Dose Date 09/03/16 Vancomycin Last Dose Time 1000 White Blood Count 7.9x10^3/uL (4.0-11.0) Red Blood Count 3.40x10^6/uL (4.30-5.70) Hemoglobin 10.9g/dL (13.0-17.5) Hematocrit 33.3% (39.0-53.0) Mean Corpuscular Volume 98fL (79-100) Mean Corpuscular Hemoglobin 32pg (25-35) Mean Corpuscular Hemoglobin Concent 33g/dL (31-37) Red Cell Distribution Width 14.0% (11.5-14.5) Platelet Count 148x10^3/uL (140-400) Microbiology 09/02/16 Blood Culture - Preliminary, Resulted NO GROWTH AFTER 2 DAYS 09/02/16 Gram Stain - Final, Complete 09/02/16 Urine Culture - Final, Complete 09/02/16 Urine Culture Result 1 (SHIRA) - Final, Complete Medications Current Medications Phenytoin Sodium (Dilantin) 100 mg BID PEG Last administered on 09/04/16 15:05 ; Start 09/04/16 at 13:30 Sodium Bicarbonate 100 meq 100 meq 1X ONCE IV Last administered on 09/04/16 08:20; Start 09/04/16 at 08:00; Stop 09/04/16 at 08:04; Status DC Sodium Bicarbonate 150 meq/Dextrose 1,150 ml @ 100 mls/hr [id number] IV Last administered on 09/04/16 10:35; Start 09/04/16 at 11:00; Stop 09/04/16 at 22:29 Vancomycin HCl 1 each 1X ONCE MC ; Start 09/04/16 at 09:30; Stop 09/04/16 at 09 :31; Status DC Vancomycin HCl 1 each 1X ONCE MC ; Start 09/05/16 at 10:30; Stop 09/05/16 at 10 :31 Vancomycin HCl/ Sodium Chloride (Iv Sodium Chloride 0.9% 250ml) 250 ml @ 250 mls/hr Q12H IV Last administered on 09/04/16 11:18; Start 09/04/16 at 11:00 Vitals/I & O Vital Sign - Last 24 Hours 09/03/16 09/03/16 09/03/16 09/03/16 16:00 16:00 17:00 17:12 Temp 98.1 98.1 Pulse 98 79 Resp 28 B/P 174/104 145/75 Pulse Ox 99 100 98 O2 Delivery Mechanical Ventilator Ventilator Ventilator Ventilator 09/03/16 09/03/16 09/03/16 09/03/16 18:04 19:00 19:43 20:00 Temp 97.9 97.9 Pulse 68 62 68 Resp 28 B/P 90/49 82/49 90/53 Pulse Ox 100 99 97 98 O2 Delivery Ventilator Ventilator Ventilator Ventilator 09/03/16 09/03/16 09/03/16 09/03/16 20:00 21:00 21:23 22:00 Pulse 67 69 Resp 28 B/P 94/54 131/64 Pulse Ox 97 97 98 O2 Delivery Mechanical Ventilator Ventilator Ventilator Ventilator 09/03/16 09/03/16 09/04/16 09/04/16 23:00 23:07 00:00 00:00 Temp 97.4 97.4 Pulse 62 60 Resp 28 B/P 89/54 112/73 Pulse Ox 99 98 100 O2 Delivery Ventilator Ventilator Ventilator Mechanical Ventilator 09/04/16 09/04/16 09/04/16 09/04/16 00:29 00:55 01:00 01:13 Pulse 52 Resp 28 28 B/P 95/52 Pulse Ox 99 100 O2 Delivery Ventilator Ventilator Ventilator Ventilator 09/04/16 09/04/16 09/04/16 09/04/16 02:00 03:00 03:10 04:00 Temp 97.4 97.4 Pulse 54 53 52 Resp 28 28 28 B/P 104/66 93/64 90/52 Pulse Ox 100 100 99 100 O2 Delivery Ventilator Ventilator Ventilator Ventilator 09/04/16 09/04/16 09/04/16 09/04/16 04:00 04:53 05:00 06:00 Pulse 53 54 Resp 28 28 B/P 99/61 107/64 Pulse Ox 100 100 100 O2 Delivery Mechanical Ventilator Ventilator Ventilator Ventilator 09/04/16 09/04/16 09/04/16 09/04/16 07:00 07:32 07:57 08:00 Temp 98.2 98.2 Pulse 108 Resp 31 B/P 140/94 Pulse Ox 98 98 98 O2 Delivery Ventilator Mechanical Ventilator Ventilator Ventilator 09/04/16 09/04/16 09/04/16 09/04/16 08:00 09:00 09:39 09:50 Pulse 108 105 Resp 32 33 29 B/P 165/98 151/77 Pulse Ox 98 96 96 99 O2 Delivery Ventilator Ventilator Ventilator Ventilator 09/04/16 09/04/16 09/04/16 09/04/16 10:00 10:10 11:00 12:00 Pulse 92 80 60 Resp 30 32 28 28 B/P 168/94 118/78 101/64 Pulse Ox 98 98 99 99 O2 Delivery Ventilator Ventilator Ventilator 09/04/16 09/04/16 09/04/16 09/04/16 12:00 12:16 13:00 14:00 Temp 98.6 98.6 Pulse 63 63 Resp 28 28 B/P 131/70 128/68 Pulse Ox 100 99 99 O2 Delivery Mechanical Ventilator Ventilator Ventilator Ventilator 09/04/16 15:00 Pulse 58 Resp 28 B/P 128/72 Pulse Ox 99 O2 Delivery Ventilator Intake and Output 09/03/16 09/03/16 09/04/16 15:00 23:00 07:00 Intake Total 490 ml 782.35 ml 1090 ml Output Total 465 ml 255 ml 393 ml Balance 25 ml 527.35 ml 697 ml CATALINO PAGAN MD Sep 04, 2016 16:02
[2016-09-04] MEDS: SIMVASTATIN 40 MG TABLET. PO SCH (21:07)
[2016-09-05] VITALS (24 sets, daily range): BP systolic 98–176; BP diastolic 60–91
[2016-09-05] MEDS: PIPERACILLIN/TAZOBACTAM 3.375 GM in IV NORMAL SALINE 50ML 50 ML IV SCH ×4 (00:34→20:16)
[2016-09-05] MEDS: methylPREDNISolone SOD SUCC PF 125 MG/2 ML VIAL. IV SCH ×3 (05:56→23:02)
[2016-09-05] MEDS: PROPOFOL 100 ML IV PRN ×4 (05:57→19:28)
--- NOTE | 2016-09-05 07:08 | PDOC ---
PULMONARY PROGRESS NOTES Subjective intubated evening of 09/01 AC mode off sedation follows commands. Vitals Vital Signs Date Time Temp Pulse Resp B/P Pulse Ox O2 Delivery O2 Flow Rate FiO2 09/05/16 06:00 59 28 98/69 100 Ventilator 09/05/16 05:00 98.7 98.7 Comments edgardo, coty w rn, as mentioned as above, other sys otherwise neg lymphatics no lap HEENT: Other (nc at, perrl, orally intubated, nose clear) Lungs: Other (decrease bs) Cardiovascular: S1, S2 Abdomen: Soft, Non-tender, Other (no mass) Extremities: No Edema Skin: Warm Labs Laboratory Tests Test 09/03/16 09:10 09/03/16 12:13 09/03/16 12:15 09/04/16 07:35 O2 Saturation 98% (92-99) 97% (92-99) Arterial Blood pH 7.28 (7.35-7.45) 7.26 (7.35-7.45) Arterial Blood pCO2 at Patient Temp 44mmHg (35-46) 53mmHg (35-46) Arterial Blood pO2 at Patient Temp 131mmHg (65-108) 103mmHg (65-108) Arterial Blood HCO3 20mmol/L (21-28) 23mmol/L (21-28) Arterial Blood Base Excess -6mmol/L (-3-3) -5mmol/L (-3-3) FiO2 40 40 Glucose (Fingerstick) 137mg/dL (70-99) 162mg/dL (70-99) Test 09/04/16 08:00 09/04/16 09:27 09/04/16 10:40 O2 Saturation 96% (92-99) Arterial Blood pH 7.27 (7.35-7.45) Arterial Blood pCO2 at Patient Temp 48mmHg (35-46) Arterial Blood pO2 at Patient Temp 92mmHg (65-108) Arterial Blood HCO3 22mmol/L (21-28) Arterial Blood Base Excess -5mmol/L (-3-3) FiO2 40 Sodium Level 145mmol/L (136-145) Potassium Level 4.2mmol/L (3.5-5.1) Chloride Level 108mmol/L (98-107) Carbon Dioxide Level 27mmol/L (21-32) Anion Gap 10 (6-14) Blood Urea Nitrogen 30mg/dL (8-26) Creatinine 1.1mg/dL (0.7-1.3) Estimated GFR (Cockcroft-Gault) 67.2 Glucose Level 171mg/dL (70-99) Calcium Level 8.2mg/dL (8.5-10.1) Magnesium Level 2.3mg/dL (1.8-2.4) Vancomycin Level Trough 5.1mcg/mL (10.0-20.0) Vancomycin Last Dose Date 09/03/16 Vancomycin Last Dose Time 1000 White Blood Count 7.9x10^3/uL (4.0-11.0) Red Blood Count 3.40x10^6/uL (4.30-5.70) Hemoglobin 10.9g/dL (13.0-17.5) Hematocrit 33.3% (39.0-53.0) Mean Corpuscular Volume 98fL (79-100) Mean Corpuscular Hemoglobin 32pg (25-35) Mean Corpuscular Hemoglobin Concent 33g/dL (31-37) Red Cell Distribution Width 14.0% (11.5-14.5) Platelet Count 148x10^3/uL (140-400) Laboratory Tests Test 09/04/16 07:35 09/04/16 08:00 09/04/16 09:27 09/04/16 10:40 Glucose (Fingerstick) 162mg/dL (70-99) O2 Saturation 96% (92-99) Arterial Blood pH 7.27 (7.35-7.45) Arterial Blood pCO2 at Patient Temp 48mmHg (35-46) Arterial Blood pO2 at Patient Temp 92mmHg (65-108) Arterial Blood HCO3 22mmol/L (21-28) Arterial Blood Base Excess -5mmol/L (-3-3) FiO2 40 Sodium Level 145mmol/L (136-145) Potassium Level 4.2mmol/L (3.5-5.1) Chloride Level 108mmol/L (98-107) Carbon Dioxide Level 27mmol/L (21-32) Anion Gap 10 (6-14) Blood Urea Nitrogen 30mg/dL (8-26) Creatinine 1.1mg/dL (0.7-1.3) Estimated GFR (Cockcroft-Gault) 67.2 Glucose Level 171mg/dL (70-99) Calcium Level 8.2mg/dL (8.5-10.1) Magnesium Level 2.3mg/dL (1.8-2.4) Vancomycin Level Trough 5.1mcg/mL (10.0-20.0) Vancomycin Last Dose Date 09/03/16 Vancomycin Last Dose Time 1000 White Blood Count 7.9x10^3/uL (4.0-11.0) Red Blood Count 3.40x10^6/uL (4.30-5.70) Hemoglobin 10.9g/dL (13.0-17.5) Hematocrit 33.3% (39.0-53.0) Mean Corpuscular Volume 98fL (79-100) Mean Corpuscular Hemoglobin 32pg (25-35) Mean Corpuscular Hemoglobin Concent 33g/dL (31-37) Red Cell Distribution Width 14.0% (11.5-14.5) Platelet Count 148x10^3/uL (140-400) Medications Active Scripts Medications Dose Route/Sig Days Date Category Dilantin (Phenytoin Sodium Extended) 100 Mg Capsule 200 Mg PO HS 02/08/15 Rx Levaquin (Levofloxacin) 500 Mg Tablet 500 Mg PO DAILY06 02/08/15 Rx Prednisone 20 Mg Tablet 40 Mg PO DAILY 02/08/15 Rx Saline Nasal [place] (Sodium Chloride) 30 Ml [place] 30 Ml NS PRN PRN 02/04/15 Reported Proair Hfa Inhaler (Albuterol Sulfate) 8.5 Gm Hfa.aer.ad 2 Puff IH PRN Q4-6HRS PRN 02/04/15 Reported Cyanocobalamin Injection (Cyanocobalamin (Vitamin B-12)) 1,000 Mcg/1 Ml Vial 1,000 Mcg IJ QMONTH 02/04/15 Reported Hydrocodone-Apap 7.5-325 (Hydrocodone Bit/Acetaminophen) 1 Each Tablet 1 Tab PO BID PRN 02/04/15 Reported Albuterol Sulfate Conc Neb Soln (Albuterol Sulfate) 2.5 Mg/0.5 Ml Vial.neb 2.5 Mg IH PRN Q4HRS PRN 08/16/13 Reported NITRO-DUR 0.6mg/hr (Nitroglycerin) 1 Each Patch.td24 1 Each TD DAILY 08/16/13 Reported Symbicort 160-4.5 Mcg Inhaler (Budesonide/Formoterol Fumarate) 10.2 Gm Hfa.aer.ad 10.2 Gm IH BID 08/16/13 Reported Aspirin 81 Mg Tab.chew 243 Mg PO DAILY 08/16/13 Reported Metoprolol Succinate ( Xl ) (Metoprolol Succinate) 25 Mg Tab.er.24h 25 Mg PO DAILY 08/16/13 Reported NITROGLYCERIN SubLingual (Nitroglycerin) 0.4 Mg Tab.subl 0.4 Mg SL PRN 1X 08/16/13 Reported Folic Acid 1 Mg Tablet 1 Mg PO DAILY 08/16/13 Reported Lisinopril 5 Mg Tablet 5 Mg PO DAILY 08/16/13 Reported Spiriva (Tiotropium [place]) 18 Mcg Cap.w.dev 18 Mcg IH DAILY 08/16/13 Reported Simvastatin 40 Mg Tablet 40 Mg PO HS 08/16/13 Reported Comments CXR/ reviewed, ett ok, b lat hyperinflation ct reviewed, Slight increase in size of noncalcified pulmonary nodule in the left upper lobe relative to an exam 02/03/2016. Small primary malignancy is not excluded. Impression . 1. Zijkb-ry-ixaxyop hypercapnic respiratory failure secondary to acute exacerbation of chronic obstructive pulmonary disease with diffuse bronchospasm. intubated 2. History of oxygen-dependent chronic obstructive pulmonary disease. 3. 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 4. History of lung nodules, being followed by Dr. Lopez. He has ongoing weight loss and there is a tiny growth on the nodule on the May scan in the left upper lobe and further growth on recent scan 5. Most likely viral pneumonitis. 6. Hypotension / fever, sepsis, cxr clear 7. New Non-AG Metabolic acidosis/?RTA/ resulting in increase min ventilation Plan . 1. AC mode, low TV/ high rate, avoid volume trauma, abg, will review if ok will do sbt 2. Follow ABG/ 3. off pressor 4. Nebulizer treatment. 5. change solumedrol to 80 mg iv q 8hrs 6. Hold off metoprolol , BP, low 7. CT chest without contrast further increase lung nodules Left lung (still too small)/ continue f/u ct in 4 months 8. BS antibiotic 9. Enteral nutrition 10. ics 11. am abg pcxr. discussed w rn, rt TIMA BRIONES MD Sep 05, 2016 07:08
[2016-09-05] MEDS: FENTANYL STANDARD PCA 30 ML IV PRN ×2 (07:27→16:15)
[2016-09-05] MEDS: PANTOPRAZOLE IV PUSH 40 MG VIAL. IVP SCH (07:37)
[2016-09-05] MEDS: ALBUTEROL SULFATE 2.5 MG/3 ML NEBU. NEB SCH ×4 (08:14→20:05)
[2016-09-05] MEDS: BUDESONIDE 0.5 MG/2 ML NEBU NEB SCH ×2 (08:14→20:05)
[2016-09-05] MEDS: FOLIC ACID 1 MG TABLET PO SCH (08:40)
[2016-09-05] MEDS: OSELTAMIVIR 75 MG CAPSULE PO SCH ×2 (08:40→20:49)
[2016-09-05] MEDS: ASPIRIN 81 MG TAB.CHEW PO SCH (08:40)
[2016-09-05] MEDS: ENOXAPARIN 40 MG/0.4 ML DISP.SYRIN. SQ SCH (08:40)
[2016-09-05] MEDS: PHENYTOIN 100 MG/4 ML ORAL.SUSP. PEG SCH ×2 (08:41→20:50)
[2016-09-05 09:14] LABS: HCO3 ABG 29 mmol/L (21-28); PCO2 ABG 49 mmHg (35-46); PH ABG 7.38 (7.35-7.45); PO2 ABG 111 mmHg (65-108); SAT O2 ABG 97 % (92-99)
[2016-09-05 09:15] LABS: FIO2 ABG 40
--- NOTE | 2016-09-05 09:22 | RAD ---
Single view chest History:Respiratory failure An AP view of the chest is submitted. Comparison: 09/04/2016. Findings: There is again endotracheal tube, tip terminating approximately 4 cm from jv. There is again enteric catheter coursing into the stomach which is not fully included. There is again emphysema. No pneumothorax or significant pleural fluid is identified, tips of costophrenic sulci not entirely included. No new lobar consolidation is identified. Impression: No new infiltrate is identified. There is emphysema.
--- NOTE | 2016-09-05 09:42 | PDOC ---
Infectious Disease Note Subjective Subjective Sedated Remains intubated/vent. FiO2 40% No fever ROS ROS Unobtainable Vital Sign Vital Signs Vital Signs Date Time Temp Pulse Resp B/P Pulse Ox O2 Delivery O2 Flow Rate FiO2 09/05/16 09:00 106 42 154/81 98 Ventilator 09/05/16 07:00 97.4 97.4 Physical Exam PHYSICAL EXAM GENERAL: Intubated & sedated HEENT: Pupils equally round. ETT, OGT LUNGS: Clear HEART: S1S2, regular ABD: BS present, soft : [place] EXT: No edema, no cyanosis [employer]: Unresponsive SKIN: No rash RUE-PICC. clean Labs Lab Laboratory Tests Test 09/04/16 10:40 09/05/16 08:00 White Blood Count 7.9x10^3/uL (4.0-11.0) Red Blood Count 3.40x10^6/uL (4.30-5.70) Hemoglobin 10.9g/dL (13.0-17.5) Hematocrit 33.3% (39.0-53.0) Mean Corpuscular Volume 98fL (79-100) Mean Corpuscular Hemoglobin 32pg (25-35) Mean Corpuscular Hemoglobin Concent 33g/dL (31-37) Red Cell Distribution Width 14.0% (11.5-14.5) Platelet Count 148x10^3/uL (140-400) O2 Saturation 97% (92-99) Arterial Blood pH 7.38 (7.35-7.45) Arterial Blood pCO2 at Patient Temp 49mmHg (35-46) Arterial Blood pO2 at Patient Temp 111mmHg (65-108) Arterial Blood HCO3 29mmol/L (21-28) Arterial Blood Base Excess 3mmol/L (-3-3) FiO2 40 Single view chest History:Respiratory failure An AP view of the chest is submitted. Comparison: 09/04/2016. Findings: There is again endotracheal tube, tip terminating approximately 4 cm from jv. There is again enteric catheter coursing into the stomach which is not fully included. There is again emphysema. No pneumothorax or significant pleural fluid is identified, tips of costophrenic sulci not entirely included. No new lobar consolidation is identified. Impression: No new infiltrate is identified. There is emphysema. Micro SPUTUM CULT RES 1 Preliminary Routine respiratory travis BLOOD CULTURE Preliminary NO GROWTH AFTER 3 DAYS URINE CULTURE RES 1 Final No growth in 48 hours. Objective Assessment Fever -better Hypotension better of pressors Acute resp failure -Intubated AECOPD - on steroids H/o CAD Plan Plan of Care Cont Vanc/Zosyn/Levoflox & Tamiflu Resp viral panel pending Monitor labs/cultures D/w family Critically ill Attending Co-Sign The patient was seen and interviewed as well as examined at the bedside. The chart was reviewed. The case was discussed. Agree with the plan of care. TIMOTHY LECHUGA APRN Sep 05, 2016 09:42 JAVI OSCAR MD Sep 05, 2016 13:10
[2016-09-05 11:00] LABS: CALCIUM 8.2 mg/dL (8.5-10.1); POTASSIUM 4.3 mmol/L (3.5-5.1)
[2016-09-05 11:12] LABS: BASO % 0 % (0-3); EOS % 0 % (0-3); HEMATOCRIT 31.6 % (39.0-53.0); HEMOGLOBIN 10.7 g/dL (13.0-17.5); LYMPH # 0.2 x10^3/uL (1.0-4.8); LYMPH % 3 % (24-48); MEAN CORPUSCULAR HEMOGLOBIN 33 pg (25-35); MEAN CORPUSCULAR HGB CONC 34 g/dL (31-37); MEAN CORPUSCULAR VOLUME 96 fL (79-100); MONO % 7 % (0-9); NEUT % 90 % (31-73); PLATELET COUNT 159 x10^3/uL (140-400); RED BLOOD COUNT 3.28 x10^6/uL (4.30-5.70); WHITE BLOOD COUNT 6.2 x10^3/uL (4.0-11.0)
[2016-09-05] MEDS: VANCOMYCIN 1 GM in IV NORMAL SALINE 250ML 250 ML IV SCH (11:21)
[2016-09-05] MEDS: VANCOMYCIN PER PHARMACY MC PRN (12:28)
--- NOTE | 2016-09-05 12:39 | PDOC ---
IM PROGRESS NOTES- Subjective Subjective None,pt on vent- unable to communicate,unable to do systems review. Objective Vitals Vital Signs Date Time Temp Pulse Resp B/P Pulse Ox O2 Delivery O2 Flow Rate FiO2 09/05/16 12:03 99 Ventilator 09/05/16 09:00 106 42 154/81 09/05/16 07:00 97.4 97.4 Input & Output Intake and Output 09/05/16 07:00 Intake Total 4329.14 ml Output Total 1250 ml Balance 3079.14 ml Intake Oral 0 ml IV Total 976.14 ml Tube Feeding 1391 ml Blood Product IV Normal Saline Flush 1657 ml Other 305 ml Output Urine Total 1250 ml Physical Exam Physical Exam General: Other (intubated/sedated) HEENT: Atraumatic, Mucous membr. moist/pink Lungs: Clear to auscultation, Other (intubated ) CVS s1 s2 regular P/a soft,nontender MUSCULOSKELETAL: Osteoarthritic changes both hands Neck: Supple Neuro: Normal tone Psych/Mental Status: Other (unable to assess ) Skin: No rashes, No significant lesion Labs Laboratory Tests Test 09/04/16 07:35 09/04/16 08:00 09/04/16 09:27 09/04/16 10:40 Glucose (Fingerstick) 162mg/dL (70-99) O2 Saturation 96% (92-99) Arterial Blood pH 7.27 (7.35-7.45) Arterial Blood pCO2 at Patient Temp 48mmHg (35-46) Arterial Blood pO2 at Patient Temp 92mmHg (65-108) Arterial Blood HCO3 22mmol/L (21-28) Arterial Blood Base Excess -5mmol/L (-3-3) FiO2 40 Sodium Level 145mmol/L (136-145) Potassium Level 4.2mmol/L (3.5-5.1) Chloride Level 108mmol/L (98-107) Carbon Dioxide Level 27mmol/L (21-32) Anion Gap 10 (6-14) Blood Urea Nitrogen 30mg/dL (8-26) Creatinine 1.1mg/dL (0.7-1.3) Estimated GFR (Cockcroft-Gault) 67.2 Glucose Level 171mg/dL (70-99) Calcium Level 8.2mg/dL (8.5-10.1) Magnesium Level 2.3mg/dL (1.8-2.4) Vancomycin Level Trough 5.1mcg/mL (10.0-20.0) Vancomycin Last Dose Date 09/03/16 Vancomycin Last Dose Time 1000 White Blood Count 7.9x10^3/uL (4.0-11.0) Red Blood Count 3.40x10^6/uL (4.30-5.70) Hemoglobin 10.9g/dL (13.0-17.5) Hematocrit 33.3% (39.0-53.0) Mean Corpuscular Volume 98fL (79-100) Mean Corpuscular Hemoglobin 32pg (25-35) Mean Corpuscular Hemoglobin Concent 33g/dL (31-37) Red Cell Distribution Width 14.0% (11.5-14.5) Platelet Count 148x10^3/uL (140-400) Test 09/05/16 08:00 09/05/16 10:45 O2 Saturation 97% (92-99) Arterial Blood pH 7.38 (7.35-7.45) Arterial Blood pCO2 at Patient Temp 49mmHg (35-46) Arterial Blood pO2 at Patient Temp 111mmHg (65-108) Arterial Blood HCO3 29mmol/L (21-28) Arterial Blood Base Excess 3mmol/L (-3-3) FiO2 40 White Blood Count 6.2x10^3/uL (4.0-11.0) Red Blood Count 3.28x10^6/uL (4.30-5.70) Hemoglobin 10.7g/dL (13.0-17.5) Hematocrit 31.6% (39.0-53.0) Mean Corpuscular Volume 96fL (79-100) Mean Corpuscular Hemoglobin 33pg (25-35) Mean Corpuscular Hemoglobin Concent 34g/dL (31-37) Red Cell Distribution Width 14.0% (11.5-14.5) Platelet Count 159x10^3/uL (140-400) Neutrophils (%) (Auto) 90% (31-73) Lymphocytes (%) (Auto) 3% (24-48) Monocytes (%) (Auto) 7% (0-9) Eosinophils (%) (Auto) 0% (0-3) Basophils (%) (Auto) 0% (0-3) Neutrophils # (Auto) 5.6x10^3uL (1.8-7.7) Lymphocytes # (Auto) 0.2x10^3/uL (1.0-4.8) Monocytes # (Auto) 0.4x10^3/uL (0.0-1.1) Eosinophils # (Auto) 0.0x10^3/uL (0.0-0.7) Basophils # (Auto) 0.0x10^3/uL (0.0-0.2) Sodium Level 144mmol/L (136-145) Potassium Level 4.3mmol/L (3.5-5.1) Chloride Level 108mmol/L (98-107) Carbon Dioxide Level 32mmol/L (21-32) Anion Gap 4 (6-14) Blood Urea Nitrogen 26mg/dL (8-26) Creatinine 1.0mg/dL (0.7-1.3) Estimated GFR (Cockcroft-Gault) 75.0 Glucose Level 179mg/dL (70-99) Calcium Level 8.2mg/dL (8.5-10.1) Vancomycin Level Trough 11.4mcg/mL (10.0-20.0) Vancomycin Last Dose Date 09/04/16 Vancomycin Last Dose Time 2300 Laboratory Tests Test 09/05/16 08:00 09/05/16 10:45 O2 Saturation 97% (92-99) Arterial Blood pH 7.38 (7.35-7.45) Arterial Blood pCO2 at Patient Temp 49mmHg (35-46) Arterial Blood pO2 at Patient Temp 111mmHg (65-108) Arterial Blood HCO3 29mmol/L (21-28) Arterial Blood Base Excess 3mmol/L (-3-3) FiO2 40 White Blood Count 6.2x10^3/uL (4.0-11.0) Red Blood Count 3.28x10^6/uL (4.30-5.70) Hemoglobin 10.7g/dL (13.0-17.5) Hematocrit 31.6% (39.0-53.0) Mean Corpuscular Volume 96fL (79-100) Mean Corpuscular Hemoglobin 33pg (25-35) Mean Corpuscular Hemoglobin Concent 34g/dL (31-37) Red Cell Distribution Width 14.0% (11.5-14.5) Platelet Count 159x10^3/uL (140-400) Neutrophils (%) (Auto) 90% (31-73) Lymphocytes (%) (Auto) 3% (24-48) Monocytes (%) (Auto) 7% (0-9) Eosinophils (%) (Auto) 0% (0-3) Basophils (%) (Auto) 0% (0-3) Neutrophils # (Auto) 5.6x10^3uL (1.8-7.7) Lymphocytes # (Auto) 0.2x10^3/uL (1.0-4.8) Monocytes # (Auto) 0.4x10^3/uL (0.0-1.1) Eosinophils # (Auto) 0.0x10^3/uL (0.0-0.7) Basophils # (Auto) 0.0x10^3/uL (0.0-0.2) Sodium Level 144mmol/L (136-145) Potassium Level 4.3mmol/L (3.5-5.1) Chloride Level 108mmol/L (98-107) Carbon Dioxide Level 32mmol/L (21-32) Anion Gap 4 (6-14) Blood Urea Nitrogen 26mg/dL (8-26) Creatinine 1.0mg/dL (0.7-1.3) Estimated GFR (Cockcroft-Gault) 75.0 Glucose Level 179mg/dL (70-99) Calcium Level 8.2mg/dL (8.5-10.1) Vancomycin Level Trough 11.4mcg/mL (10.0-20.0) Vancomycin Last Dose Date 09/04/16 Vancomycin Last Dose Time 2300 Meds Current Medications Methylprednisolone Sodium Succinate 80 mg 80 mg Q8HRS IV ; Start 09/05/16 at 14: 00 Phenytoin Sodium (Dilantin) 100 mg BID PEG Last administered on 09/05/16t 08:41 ; Start 09/04/16 at 13:30 Vancomycin HCl 1 each 1X ONCE MC ; Start 09/05/16 at 10:30; Stop 09/05/16 at 10 :31; Status DC Vancomycin HCl/ Sodium Chloride (Iv Sodium Chloride 0.9% 500ml Bag) 500 ml @ 250 mls/hr Q12H IV ; Start 09/05/16 at 21:00 Assessment Assessment Problems Medical Problems: (1) COPD (chronic obstructive pulmonary disease) with acute bronchitis Status: Acute FINAL IMPRESSION: Ac resp failure on vent Fever with sepsis 101 temp Hypotension on levophed . borderline elevated troponin. 1. Acute respiratory failure, requiring intubation 09/01/16 2. Acute chronic obstructive pulmonary disease with acute exacerbation failed BIPAP. 3. Hypotension. 4. Hyperlipidemia. 5. History of seizures, on Dilantin. 6.h/o Lung surgery PLAN:trying weaning parameters not ready to extubate,hyperventilating iv antibiotics echo good LVF vent management intubation 09/01/16 fluid challenge . Levophed low dose. ct chest inc in lung nodules left side. spoke with pulmonary. iv antibiotics.iv steroids Tamiflu id consulted. ekg cardiology consult. D/w family at bedside. Prognosis is poor. Plan Plan For more details regarding further plans, please refer to the orders. KLEVER DE DIOS MD Sep 05, 2016 12:38
[2016-09-05] MEDS: SIMVASTATIN 40 MG TABLET. PO SCH (20:49)
[2016-09-05] MEDS: VANCOMYCIN 1.5 GM in IV NORMAL SALINE 500ML BAG 500 ML IV SCH (21:04)
[2016-09-06] VITALS (23 sets, daily range): BP systolic 112–199; BP diastolic 64–96
[2016-09-06] MEDS: PIPERACILLIN/TAZOBACTAM 3.375 GM in IV NORMAL SALINE 50ML 50 ML IV SCH ×4 (00:32→18:43)
[2016-09-06] MEDS: PROPOFOL 100 ML IV PRN ×5 (01:05→20:10)
[2016-09-06] MEDS: FENTANYL STANDARD PCA 30 ML IV PRN ×3 (02:06→21:28)
[2016-09-06] MEDS: methylPREDNISolone SOD SUCC PF 125 MG/2 ML VIAL. IV SCH ×3 (06:44→21:48)
--- NOTE | 2016-09-06 07:07 | PDOC ---
PULMONARY PROGRESS NOTES Subjective intubated evening of 09/01 AC mode sedated, small ett secretion, Vitals Vital Signs Date Time Temp Pulse Resp B/P Pulse Ox O2 Delivery O2 Flow Rate FiO2 09/06/16 06:00 48 28 112/71 100 Ventilator 09/06/16 04:00 97.4 97.4 Comments coty reynoso w rn, as mentioned as above, other sys otherwise neg lymphatics no lap HEENT: Other (nc at, perrl, orally intubated, nose clear) Lungs: Other (decrease bs) Cardiovascular: S1, S2 Abdomen: Soft, Non-tender, Other (no mass) Extremities: No Edema Skin: Warm Labs Laboratory Tests Test 09/04/16 07:35 09/04/16 08:00 09/04/16 09:27 09/04/16 10:40 Glucose (Fingerstick) 162mg/dL (70-99) O2 Saturation 96% (92-99) Arterial Blood pH 7.27 (7.35-7.45) Arterial Blood pCO2 at Patient Temp 48mmHg (35-46) Arterial Blood pO2 at Patient Temp 92mmHg (65-108) Arterial Blood HCO3 22mmol/L (21-28) Arterial Blood Base Excess -5mmol/L (-3-3) FiO2 40 Sodium Level 145mmol/L (136-145) Potassium Level 4.2mmol/L (3.5-5.1) Chloride Level 108mmol/L (98-107) Carbon Dioxide Level 27mmol/L (21-32) Anion Gap 10 (6-14) Blood Urea Nitrogen 30mg/dL (8-26) Creatinine 1.1mg/dL (0.7-1.3) Estimated GFR (Cockcroft-Gault) 67.2 Glucose Level 171mg/dL (70-99) Calcium Level 8.2mg/dL (8.5-10.1) Magnesium Level 2.3mg/dL (1.8-2.4) Vancomycin Level Trough 5.1mcg/mL (10.0-20.0) Vancomycin Last Dose Date 09/03/16 Vancomycin Last Dose Time 1000 White Blood Count 7.9x10^3/uL (4.0-11.0) Red Blood Count 3.40x10^6/uL (4.30-5.70) Hemoglobin 10.9g/dL (13.0-17.5) Hematocrit 33.3% (39.0-53.0) Mean Corpuscular Volume 98fL (79-100) Mean Corpuscular Hemoglobin 32pg (25-35) Mean Corpuscular Hemoglobin Concent 33g/dL (31-37) Red Cell Distribution Width 14.0% (11.5-14.5) Platelet Count 148x10^3/uL (140-400) Test 09/05/16 08:00 09/05/16 10:45 09/06/16 01:45 09/06/16 06:09 O2 Saturation 97% (92-99) Arterial Blood pH 7.38 (7.35-7.45) Arterial Blood pCO2 at Patient Temp 49mmHg (35-46) Arterial Blood pO2 at Patient Temp 111mmHg (65-108) Arterial Blood HCO3 29mmol/L (21-28) Arterial Blood Base Excess 3mmol/L (-3-3) FiO2 40 White Blood Count 6.2x10^3/uL (4.0-11.0) Red Blood Count 3.28x10^6/uL (4.30-5.70) Hemoglobin 10.7g/dL (13.0-17.5) Hematocrit 31.6% (39.0-53.0) Mean Corpuscular Volume 96fL (79-100) Mean Corpuscular Hemoglobin 33pg (25-35) Mean Corpuscular Hemoglobin Concent 34g/dL (31-37) Red Cell Distribution Width 14.0% (11.5-14.5) Platelet Count 159x10^3/uL (140-400) Neutrophils (%) (Auto) 90% (31-73) Lymphocytes (%) (Auto) 3% (24-48) Monocytes (%) (Auto) 7% (0-9) Eosinophils (%) (Auto) 0% (0-3) Basophils (%) (Auto) 0% (0-3) Neutrophils # (Auto) 5.6x10^3uL (1.8-7.7) Lymphocytes # (Auto) 0.2x10^3/uL (1.0-4.8) Monocytes # (Auto) 0.4x10^3/uL (0.0-1.1) Eosinophils # (Auto) 0.0x10^3/uL (0.0-0.7) Basophils # (Auto) 0.0x10^3/uL (0.0-0.2) Sodium Level 144mmol/L (136-145) Potassium Level 4.3mmol/L (3.5-5.1) Chloride Level 108mmol/L (98-107) Carbon Dioxide Level 32mmol/L (21-32) Anion Gap 4 (6-14) Blood Urea Nitrogen 26mg/dL (8-26) Creatinine 1.0mg/dL (0.7-1.3) Estimated GFR (Cockcroft-Gault) 75.0 Glucose Level 179mg/dL (70-99) Calcium Level 8.2mg/dL (8.5-10.1) Vancomycin Level Trough 11.4mcg/mL (10.0-20.0) Vancomycin Last Dose Date 09/04/16 Vancomycin Last Dose Time 2300 Glucose (Fingerstick) 184mg/dL (70-99) 219mg/dL (70-99) Laboratory Tests Test 09/05/16 08:00 09/05/16 10:45 09/06/16 01:45 09/06/16 06:09 O2 Saturation 97% (92-99) Arterial Blood pH 7.38 (7.35-7.45) Arterial Blood pCO2 at Patient Temp 49mmHg (35-46) Arterial Blood pO2 at Patient Temp 111mmHg (65-108) Arterial Blood HCO3 29mmol/L (21-28) Arterial Blood Base Excess 3mmol/L (-3-3) FiO2 40 White Blood Count 6.2x10^3/uL (4.0-11.0) Red Blood Count 3.28x10^6/uL (4.30-5.70) Hemoglobin 10.7g/dL (13.0-17.5) Hematocrit 31.6% (39.0-53.0) Mean Corpuscular Volume 96fL (79-100) Mean Corpuscular Hemoglobin 33pg (25-35) Mean Corpuscular Hemoglobin Concent 34g/dL (31-37) Red Cell Distribution Width 14.0% (11.5-14.5) Platelet Count 159x10^3/uL (140-400) Neutrophils (%) (Auto) 90% (31-73) Lymphocytes (%) (Auto) 3% (24-48) Monocytes (%) (Auto) 7% (0-9) Eosinophils (%) (Auto) 0% (0-3) Basophils (%) (Auto) 0% (0-3) Neutrophils # (Auto) 5.6x10^3uL (1.8-7.7) Lymphocytes # (Auto) 0.2x10^3/uL (1.0-4.8) Monocytes # (Auto) 0.4x10^3/uL (0.0-1.1) Eosinophils # (Auto) 0.0x10^3/uL (0.0-0.7) Basophils # (Auto) 0.0x10^3/uL (0.0-0.2) Sodium Level 144mmol/L (136-145) Potassium Level 4.3mmol/L (3.5-5.1) Chloride Level 108mmol/L (98-107) Carbon Dioxide Level 32mmol/L (21-32) Anion Gap 4 (6-14) Blood Urea Nitrogen 26mg/dL (8-26) Creatinine 1.0mg/dL (0.7-1.3) Estimated GFR (Cockcroft-Gault) 75.0 Glucose Level 179mg/dL (70-99) Calcium Level 8.2mg/dL (8.5-10.1) Vancomycin Level Trough 11.4mcg/mL (10.0-20.0) Vancomycin Last Dose Date 09/04/16 Vancomycin Last Dose Time 2300 Glucose (Fingerstick) 184mg/dL (70-99) 219mg/dL (70-99) Medications Active Scripts Medications Dose Route/Sig Days Date Category Dilantin (Phenytoin Sodium Extended) 100 Mg Capsule 200 Mg PO HS 02/08/15 Rx Levaquin (Levofloxacin) 500 Mg Tablet 500 Mg PO DAILY06 02/08/15 Rx Prednisone 20 Mg Tablet 40 Mg PO DAILY 02/08/15 Rx Saline Nasal [place] (Sodium Chloride) 30 Ml [place] 30 Ml NS PRN PRN 02/04/15 Reported Proair Hfa Inhaler (Albuterol Sulfate) 8.5 Gm Hfa.aer.ad 2 Puff IH PRN Q4-6HRS PRN 02/04/15 Reported Cyanocobalamin Injection (Cyanocobalamin (Vitamin B-12)) 1,000 Mcg/1 Ml Vial 1,000 Mcg IJ QMONTH 02/04/15 Reported Hydrocodone-Apap 7.5-325 (Hydrocodone Bit/Acetaminophen) 1 Each Tablet 1 Tab PO BID PRN 02/04/15 Reported Albuterol Sulfate Conc Neb Soln (Albuterol Sulfate) 2.5 Mg/0.5 Ml Vial.neb 2.5 Mg IH PRN Q4HRS PRN 08/16/13 Reported NITRO-DUR 0.6mg/hr (Nitroglycerin) 1 Each Patch.td24 1 Each TD DAILY 08/16/13 Reported Symbicort 160-4.5 Mcg Inhaler (Budesonide/Formoterol Fumarate) 10.2 Gm Hfa.aer.ad 10.2 Gm IH BID 08/16/13 Reported Aspirin 81 Mg Tab.chew 243 Mg PO DAILY 08/16/13 Reported Metoprolol Succinate ( Xl ) (Metoprolol Succinate) 25 Mg Tab.er.24h 25 Mg PO DAILY 08/16/13 Reported NITROGLYCERIN SubLingual (Nitroglycerin) 0.4 Mg Tab.subl 0.4 Mg SL PRN 1X 08/16/13 Reported Folic Acid 1 Mg Tablet 1 Mg PO DAILY 08/16/13 Reported Lisinopril 5 Mg Tablet 5 Mg PO DAILY 08/16/13 Reported Spiriva (Tiotropium [place]) 18 Mcg Cap.w.dev 18 Mcg IH DAILY 08/16/13 Reported Simvastatin 40 Mg Tablet 40 Mg PO HS 08/16/13 Reported Comments CXR/ reviewed, ett ok, b lat hyperinflation ct reviewed, Slight increase in size of noncalcified pulmonary nodule in the left upper lobe relative to an exam 02/03/2016. Small primary malignancy is not excluded. Impression . 1. Alnky-hu-xykhiru hypercapnic respiratory failure secondary to acute exacerbation of chronic obstructive pulmonary disease with diffuse bronchospasm. intubated 2. History of oxygen-dependent chronic obstructive pulmonary disease. 3. 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 4. History of lung nodules, being followed by Dr. Lopez. He has ongoing weight loss and there is a tiny growth on the nodule on the May scan in the left upper lobe and further growth on recent scan 5. Most likely viral pneumonitis. 6. Hypotension / fever, sepsis, cxr clear 7. New Non-AG Metabolic acidosis/?RTA/ resulting in increase min ventilation Plan . 1. cont vent support, decreased rr to 24, will do abg, will review if ok will do sbt 2. Follow ABG/ 3. off pressor 4. Nebulizer treatment. 5. solumedrol 80 mg iv q 8hrs 6. Hold off metoprolol , BP, low 7. CT chest without contrast further increase lung nodules Left lung (still too small)/ continue f/u ct in 4 months 8. BS antibiotic 9. Enteral nutrition 10. ics 11. am abg pcxr. discussed w rn, rt TIMA BRIONES MD Sep 06, 2016 07:07
[2016-09-06] MEDS: BUDESONIDE 0.5 MG/2 ML NEBU NEB SCH ×2 (07:14→20:02)
[2016-09-06] MEDS: ALBUTEROL SULFATE 2.5 MG/3 ML NEBU. NEB SCH ×4 (07:14→20:02)
[2016-09-06 08:32] LABS: HCO3 ABG 30 mmol/L (21-28); PCO2 ABG 53 mmHg (35-46); PH ABG 7.38 (7.35-7.45); PO2 ABG 84 mmHg (65-108); SAT O2 ABG 95 % (92-99)
--- NOTE | 2016-09-06 08:33 | RAD ---
Single view chest History:respiratory failure An AP view of the chest is submitted. Comparison: 09/05/2016. Findings: 2 AP portable supine views of the chest are submitted. There is again enteric catheter coursing into the stomach, not fully included. There is endotracheal tube with tip terminating approximately 5 cm from jv. There is again emphysema. There is no significant pleural fluid or pneumothorax. There is no new lobar consolidation. Heart size is stable, within normal limits. T Impression: There is again emphysema, no new infiltrate. There is again enteric catheter and endotracheal tube.
--- NOTE | 2016-09-06 08:38 | PDOC ---
Infectious Disease Note Subjective Subjective Remains intubated/vent. 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 SKIN: No rash IVs ok Labs Lab Laboratory Tests Test 09/05/16 10:45 09/06/16 01:45 09/06/16 06:09 White Blood Count 6.2x10^3/uL (4.0-11.0) Red Blood Count 3.28x10^6/uL (4.30-5.70) Hemoglobin 10.7g/dL (13.0-17.5) Hematocrit 31.6% (39.0-53.0) Mean Corpuscular Volume 96fL (79-100) Mean Corpuscular Hemoglobin 33pg (25-35) Mean Corpuscular Hemoglobin Concent 34g/dL (31-37) Red Cell Distribution Width 14.0% (11.5-14.5) Platelet Count 159x10^3/uL (140-400) Neutrophils (%) (Auto) 90% (31-73) Lymphocytes (%) (Auto) 3% (24-48) Monocytes (%) (Auto) 7% (0-9) Eosinophils (%) (Auto) 0% (0-3) Basophils (%) (Auto) 0% (0-3) Neutrophils # (Auto) 5.6x10^3uL (1.8-7.7) Lymphocytes # (Auto) 0.2x10^3/uL (1.0-4.8) Monocytes # (Auto) 0.4x10^3/uL (0.0-1.1) Eosinophils # (Auto) 0.0x10^3/uL (0.0-0.7) Basophils # (Auto) 0.0x10^3/uL (0.0-0.2) Sodium Level 144mmol/L (136-145) Potassium Level 4.3mmol/L (3.5-5.1) Chloride Level 108mmol/L (98-107) Carbon Dioxide Level 32mmol/L (21-32) Anion Gap 4 (6-14) Blood Urea Nitrogen 26mg/dL (8-26) Creatinine 1.0mg/dL (0.7-1.3) Estimated GFR (Cockcroft-Gault) 75.0 Glucose Level 179mg/dL (70-99) Calcium Level 8.2mg/dL (8.5-10.1) Vancomycin Level Trough 11.4mcg/mL (10.0-20.0) Vancomycin Last Dose Date 09/04/16 Vancomycin Last Dose Time 2300 Glucose (Fingerstick) 184mg/dL (70-99) 219mg/dL (70-99) Micro SPUTUM CULT RES 1 Preliminary Routine respiratory travis BLOOD CULTURE Preliminary NO GROWTH AFTER 3 DAYS URINE CULTURE RES 1 Final No growth in 48 hours. Objective Assessment Fever -better Hypotension better of pressors Acute resp failure -Intubated AECOPD - on steroids H/o CAD Plan Plan of Care Cont Vanc/Zosyn/Levoflox & Tamiflu Resp viral panel pending Monitor labs/cultures f/u cxr Critically ill Attending Co-Sign The patient was seen and interviewed as well as examined at the bedside. The chart was reviewed. The case was discussed. Agree with the plan of care. TIMOTHY LECHUGA APRN Sep 06, 2016 08:38 JAVI OSCAR MD Sep 06, 2016 13:18
[2016-09-06 09:04] LABS: FIO2 ABG 40
[2016-09-06] MEDS: FOLIC ACID 1 MG TABLET PO SCH (09:13)
[2016-09-06] MEDS: ASPIRIN 81 MG TAB.CHEW PO SCH (09:13)
[2016-09-06] MEDS: PANTOPRAZOLE IV PUSH 40 MG VIAL. IVP SCH (09:14)
[2016-09-06] MEDS: PHENYTOIN 100 MG/4 ML ORAL.SUSP. PEG SCH ×2 (09:14→21:25)
[2016-09-06] MEDS: OSELTAMIVIR 75 MG CAPSULE PO SCH ×2 (09:14→21:25)
[2016-09-06] MEDS: VANCOMYCIN 1.5 GM in IV NORMAL SALINE 500ML BAG 500 ML IV SCH ×2 (09:17→21:24)
[2016-09-06 09:44] LABS: ALBUMIN 2.6 g/dL (3.4-5.0); ALBUMIN/GLOBULIN RATIO 0.8 (1.0-1.7); CALCIUM 8.6 mg/dL (8.5-10.1); CREATININE 0.9 mg/dL (0.7-1.3); GFR 84.7; POTASSIUM 4.2 mmol/L (3.5-5.1); TOTAL BILIRUBIN 0.2 mg/dL (0.2-1.0); TOTAL PROTEIN 5.8 g/dL (6.4-8.2)
[2016-09-06 09:46] LABS: BASO % 0 % (0-3); EOS % 0 % (0-3); HEMATOCRIT 34.6 % (39.0-53.0); HEMOGLOBIN 11.6 g/dL (13.0-17.5); LYMPH # 0.4 x10^3/uL (1.0-4.8); LYMPH % 7 % (24-48); MEAN CORPUSCULAR HEMOGLOBIN 33 pg (25-35); MEAN CORPUSCULAR HGB CONC 33 g/dL (31-37); MEAN CORPUSCULAR VOLUME 97 fL (79-100); MONO % 9 % (0-9); NEUT % 84 % (31-73); PLATELET COUNT 162 x10^3/uL (140-400); RED BLOOD COUNT 3.56 x10^6/uL (4.30-5.70); RED CELL DISTRIBUTION WIDTH 14.4 % (11.5-14.5); WHITE BLOOD COUNT 5.8 x10^3/uL (4.0-11.0)
[2016-09-06 10:12] LABS: HCO3 ABG 31 mmol/L (21-28); PH ABG 7.31 (7.35-7.45); PO2 ABG 67 mmHg (65-108); SAT O2 ABG 91 % (92-99)
[2016-09-06] MEDS: ENOXAPARIN 40 MG/0.4 ML DISP.SYRIN. SQ SCH (10:20)
[2016-09-06] MEDS: VANCOMYCIN PER PHARMACY MC PRN (11:26)
[2016-09-06 12:28] LABS: FIO2 ABG 40; PCO2 ABG 63 mmHg (35-46)
--- NOTE | 2016-09-06 13:00 | PDOC ---
IM PROGRESS NOTES- Subjective Subjective None,pt on vent- unable to communicate,unable to do systems review. Has constipation. Objective Vitals Vital Signs Date Time Temp Pulse Resp B/P Pulse Ox O2 Delivery O2 Flow Rate FiO2 09/06/16 11:23 99 Ventilator 09/06/16 10:24 15.0 09/06/16 09:00 80 27 179/89 09/06/16 08:00 98.1 98.1 Input & Output Intake and Output 09/06/16 07:00 Intake Total 4298.87 ml Output Total 1357 ml Balance 2941.87 ml IV Total 1600.87 ml Tube Feeding 1673 ml Other 1025 ml Output Urine Total 1357 ml Physical Exam Physical Exam General: Other (intubated/sedated) HEENT: Atraumatic, Mucous membrane moist/pink Lungs: Clear to auscultation, Other (intubated ) CVS s1 s2 regular P/a soft,nontender,mild distention MUSCULOSKELETAL: Osteoarthritic changes both hands Neck: Supple Neuro: Normal tone Psych/Mental Status: Other (unable to assess ) Skin: No rashes, No significant lesion Labs Laboratory Tests Test 09/05/16 08:00 09/05/16 10:45 09/06/16 01:45 09/06/16 06:09 O2 Saturation 97% (92-99) Arterial Blood pH 7.38 (7.35-7.45) Arterial Blood pCO2 at Patient Temp 49mmHg (35-46) Arterial Blood pO2 at Patient Temp 111mmHg (65-108) Arterial Blood HCO3 29mmol/L (21-28) Arterial Blood Base Excess 3mmol/L (-3-3) FiO2 40 White Blood Count 6.2x10^3/uL (4.0-11.0) Red Blood Count 3.28x10^6/uL (4.30-5.70) Hemoglobin 10.7g/dL (13.0-17.5) Hematocrit 31.6% (39.0-53.0) Mean Corpuscular Volume 96fL (79-100) Mean Corpuscular Hemoglobin 33pg (25-35) Mean Corpuscular Hemoglobin Concent 34g/dL (31-37) Red Cell Distribution Width 14.0% (11.5-14.5) Platelet Count 159x10^3/uL (140-400) Neutrophils (%) (Auto) 90% (31-73) Lymphocytes (%) (Auto) 3% (24-48) Monocytes (%) (Auto) 7% (0-9) Eosinophils (%) (Auto) 0% (0-3) Basophils (%) (Auto) 0% (0-3) Neutrophils # (Auto) 5.6x10^3uL (1.8-7.7) Lymphocytes # (Auto) 0.2x10^3/uL (1.0-4.8) Monocytes # (Auto) 0.4x10^3/uL (0.0-1.1) Eosinophils # (Auto) 0.0x10^3/uL (0.0-0.7) Basophils # (Auto) 0.0x10^3/uL (0.0-0.2) Sodium Level 144mmol/L (136-145) Potassium Level 4.3mmol/L (3.5-5.1) Chloride Level 108mmol/L (98-107) Carbon Dioxide Level 32mmol/L (21-32) Anion Gap 4 (6-14) Blood Urea Nitrogen 26mg/dL (8-26) Creatinine 1.0mg/dL (0.7-1.3) Estimated GFR (Cockcroft-Gault) 75.0 Glucose Level 179mg/dL (70-99) Calcium Level 8.2mg/dL (8.5-10.1) Vancomycin Level Trough 11.4mcg/mL (10.0-20.0) Vancomycin Last Dose Date 09/04/16 Vancomycin Last Dose Time 2300 Glucose (Fingerstick) 184mg/dL (70-99) 219mg/dL (70-99) Test 09/06/16 07:11 09/06/16 09:05 09/06/16 10:08 09/06/16 12:18 O2 Saturation 95% (92-99) 91% (92-99) Arterial Blood pH 7.38 (7.35-7.45) 7.31 (7.35-7.45) Arterial Blood pCO2 at Patient Temp 53mmHg (35-46) 63mmHg (35-46) Arterial Blood pO2 at Patient Temp 84mmHg (65-108) 67mmHg (65-108) Arterial Blood HCO3 30mmol/L (21-28) 31mmol/L (21-28) Arterial Blood Base Excess 4mmol/L (-3-3) 3mmol/L (-3-3) FiO2 40 40 White Blood Count 5.8x10^3/uL (4.0-11.0) Red Blood Count 3.56x10^6/uL (4.30-5.70) Hemoglobin 11.6g/dL (13.0-17.5) Hematocrit 34.6% (39.0-53.0) Mean Corpuscular Volume 97fL (79-100) Mean Corpuscular Hemoglobin 33pg (25-35) Mean Corpuscular Hemoglobin Concent 33g/dL (31-37) Red Cell Distribution Width 14.4% (11.5-14.5) Platelet Count 162x10^3/uL (140-400) Neutrophils (%) (Auto) 84% (31-73) Lymphocytes (%) (Auto) 7% (24-48) Monocytes (%) (Auto) 9% (0-9) Eosinophils (%) (Auto) 0% (0-3) Basophils (%) (Auto) 0% (0-3) Neutrophils # (Auto) 4.8x10^3uL (1.8-7.7) Lymphocytes # (Auto) 0.4x10^3/uL (1.0-4.8) Monocytes # (Auto) 0.5x10^3/uL (0.0-1.1) Eosinophils # (Auto) 0.0x10^3/uL (0.0-0.7) Basophils # (Auto) 0.0x10^3/uL (0.0-0.2) Sodium Level 144mmol/L (136-145) Potassium Level 4.2mmol/L (3.5-5.1) Chloride Level 107mmol/L (98-107) Carbon Dioxide Level 32mmol/L (21-32) Anion Gap 5 (6-14) Blood Urea Nitrogen 25mg/dL (8-26) Creatinine 0.9mg/dL (0.7-1.3) Estimated GFR (Cockcroft-Gault) 84.7 BUN/Creatinine Ratio 28 (6-20) Glucose Level 241mg/dL (70-99) Calcium Level 8.6mg/dL (8.5-10.1) Total Bilirubin 0.2mg/dL (0.2-1.0) Aspartate Amino Transf (AST/SGOT) 17U/L (15-37) Alanine Aminotransferase (ALT/SGPT) 47U/L (16-63) Alkaline Phosphatase 43U/L (46-116) Total Protein 5.8g/dL (6.4-8.2) Albumin 2.6g/dL (3.4-5.0) Albumin/Globulin Ratio 0.8 (1.0-1.7) Glucose (Fingerstick) 166mg/dL (70-99) Laboratory Tests Test 09/06/16 01:45 09/06/16 06:09 09/06/16 07:11 09/06/16 09:05 Glucose (Fingerstick) 184mg/dL (70-99) 219mg/dL (70-99) O2 Saturation 95% (92-99) Arterial Blood pH 7.38 (7.35-7.45) Arterial Blood pCO2 at Patient Temp 53mmHg (35-46) Arterial Blood pO2 at Patient Temp 84mmHg (65-108) Arterial Blood HCO3 30mmol/L (21-28) Arterial Blood Base Excess 4mmol/L (-3-3) FiO2 40 White Blood Count 5.8x10^3/uL (4.0-11.0) Red Blood Count 3.56x10^6/uL (4.30-5.70) Hemoglobin 11.6g/dL (13.0-17.5) Hematocrit 34.6% (39.0-53.0) Mean Corpuscular Volume 97fL (79-100) Mean Corpuscular Hemoglobin 33pg (25-35) Mean Corpuscular Hemoglobin Concent 33g/dL (31-37) Red Cell Distribution Width 14.4% (11.5-14.5) Platelet Count 162x10^3/uL (140-400) Neutrophils (%) (Auto) 84% (31-73) Lymphocytes (%) (Auto) 7% (24-48) Monocytes (%) (Auto) 9% (0-9) Eosinophils (%) (Auto) 0% (0-3) Basophils (%) (Auto) 0% (0-3) Neutrophils # (Auto) 4.8x10^3uL (1.8-7.7) Lymphocytes # (Auto) 0.4x10^3/uL (1.0-4.8) Monocytes # (Auto) 0.5x10^3/uL (0.0-1.1) Eosinophils # (Auto) 0.0x10^3/uL (0.0-0.7) Basophils # (Auto) 0.0x10^3/uL (0.0-0.2) Sodium Level 144mmol/L (136-145) Potassium Level 4.2mmol/L (3.5-5.1) Chloride Level 107mmol/L (98-107) Carbon Dioxide Level 32mmol/L (21-32) Anion Gap 5 (6-14) Blood Urea Nitrogen 25mg/dL (8-26) Creatinine 0.9mg/dL (0.7-1.3) Estimated GFR (Cockcroft-Gault) 84.7 BUN/Creatinine Ratio 28 (6-20) Glucose Level 241mg/dL (70-99) Calcium Level 8.6mg/dL (8.5-10.1) Total Bilirubin 0.2mg/dL (0.2-1.0) Aspartate Amino Transf (AST/SGOT) 17U/L (15-37) Alanine Aminotransferase (ALT/SGPT) 47U/L (16-63) Alkaline Phosphatase 43U/L (46-116) Total Protein 5.8g/dL (6.4-8.2) Albumin 2.6g/dL (3.4-5.0) Albumin/Globulin Ratio 0.8 (1.0-1.7) Test 09/06/16 10:08 09/06/16 12:18 O2 Saturation 91% (92-99) Arterial Blood pH 7.31 (7.35-7.45) Arterial Blood pCO2 at Patient Temp 63mmHg (35-46) Arterial Blood pO2 at Patient Temp 67mmHg (65-108) Arterial Blood HCO3 31mmol/L (21-28) Arterial Blood Base Excess 3mmol/L (-3-3) FiO2 40 Glucose (Fingerstick) 166mg/dL (70-99) Meds Current Medications Methylprednisolone Sodium Succinate 80 mg 80 mg Q8HRS IV Last administered on 06:44; Start 09/05/16 at 14:00 Vancomycin HCl/ Sodium Chloride (Iv Sodium Chloride 0.9% 500ml Bag) 500 ml @ 250 mls/hr Q12H IV Last administered on 09/06/16 09:17; Start 09/05/16 at 21: 00 Assessment Assessment Problems Medical Problems: (1) COPD (chronic obstructive pulmonary disease) with acute bronchitis Status: Acute FINAL IMPRESSION: Ac resp failure on vent Fever with sepsis 101 temp Hypotension on levophed . borderline elevated troponin. 1. Acute respiratory failure, requiring intubation 09/01/16 2. Acute chronic obstructive pulmonary disease with acute exacerbation failed BIPAP. 3. Hypotension. 4. Hyperlipidemia. 5. History of seizures, on Dilantin. 6.h/o Lung surgery PLAN:trying weaning parameters not ready to extubate,hyperventilating iv antibiotics echo good LVF vent management intubation 09/01/16 fluid challenge . Levophed low dose. ct chest inc in lung nodules left side. spoke with pulmonary. iv antibiotics.iv steroids Tamiflu id consulted. ekg cardiology consult. Constipation- Dulcolax,senna-s. D/w family at bedside. Prognosis is poor. Plan Plan For more details regarding further plans, please refer to the orders. KLEVER DE DIOS MD Sep 06, 2016 13:00
[2016-09-06] MEDS ORDERED: SENNA LEAF EXTRACT 528 MG/15 ML ORAL SYRUP. PEG PRN (13:15)
[2016-09-06] MEDS ORDERED: BISACODYL 10 MG SUPP.RECT PR PRN (13:15)
[2016-09-06] MEDS ORDERED: DEXTROSE 50% 25 GM / 50ML DISP.SYRIN. IV PRN (13:15)
[2016-09-06] MEDS: INSULIN ASPART 300 UNITS/3 ML INSULN.PEN SQ SCH (16:55)
[2016-09-06] MEDS: SIMVASTATIN 40 MG TABLET. PO SCH (21:25)
[2016-09-07] VITALS (24 sets, daily range): BP systolic 81–183; BP diastolic 53–93
[2016-09-07] MEDS: PIPERACILLIN/TAZOBACTAM 3.375 GM in IV NORMAL SALINE 50ML 50 ML IV SCH ×4 (00:03→17:26)
[2016-09-07] MEDS: PROPOFOL 100 ML IV PRN (01:25)
[2016-09-07] MEDS: methylPREDNISolone SOD SUCC PF 125 MG/2 ML VIAL. IV SCH ×3 (05:37→21:46)
[2016-09-07 06:33] LABS: ALBUMIN 2.3 g/dL (3.4-5.0); ALBUMIN/GLOBULIN RATIO 0.8 (1.0-1.7); CALCIUM 8.4 mg/dL (8.5-10.1); CREATININE 0.8 mg/dL (0.7-1.3); POTASSIUM 4.6 mmol/L (3.5-5.1); TOTAL BILIRUBIN 0.2 mg/dL (0.2-1.0); TOTAL PROTEIN 5.2 g/dL (6.4-8.2)
[2016-09-07 07:16] LABS: BASO % 0 % (0-3); EOS % 0 % (0-3); HEMOGLOBIN 10.4 g/dL (13.0-17.5); LYMPH # 0.5 x10^3/uL (1.0-4.8); LYMPH % 10 % (24-48); MEAN CORPUSCULAR HEMOGLOBIN 33 pg (25-35); MEAN CORPUSCULAR HGB CONC 33 g/dL (31-37); MEAN CORPUSCULAR VOLUME 97 fL (79-100); MONO % 9 % (0-9); NEUT % 82 % (31-73); PLATELET COUNT 157 x10^3/uL (140-400); RED BLOOD COUNT 3.19 x10^6/uL (4.30-5.70); RED CELL DISTRIBUTION WIDTH 14.1 % (11.5-14.5); WHITE BLOOD COUNT 5.3 x10^3/uL (4.0-11.0)
--- NOTE | 2016-09-07 08:04 | PDOC ---
Infectious Disease Note Subjective Subjective Remains intubated/vent. 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 SKIN: No rash IV: ok Labs Lab Laboratory Tests Test 09/06/16 09:05 09/06/16 10:08 09/06/16 12:18 09/06/16 16:52 White Blood Count 5.8x10^3/uL (4.0-11.0) Red Blood Count 3.56x10^6/uL (4.30-5.70) Hemoglobin 11.6g/dL (13.0-17.5) Hematocrit 34.6% (39.0-53.0) Mean Corpuscular Volume 97fL (79-100) Mean Corpuscular Hemoglobin 33pg (25-35) Mean Corpuscular Hemoglobin Concent 33g/dL (31-37) Red Cell Distribution Width 14.4% (11.5-14.5) Platelet Count 162x10^3/uL (140-400) Neutrophils (%) (Auto) 84% (31-73) Lymphocytes (%) (Auto) 7% (24-48) Monocytes (%) (Auto) 9% (0-9) Eosinophils (%) (Auto) 0% (0-3) Basophils (%) (Auto) 0% (0-3) Neutrophils # (Auto) 4.8x10^3uL (1.8-7.7) Lymphocytes # (Auto) 0.4x10^3/uL (1.0-4.8) Monocytes # (Auto) 0.5x10^3/uL (0.0-1.1) Eosinophils # (Auto) 0.0x10^3/uL (0.0-0.7) Basophils # (Auto) 0.0x10^3/uL (0.0-0.2) Sodium Level 144mmol/L (136-145) Potassium Level 4.2mmol/L (3.5-5.1) Chloride Level 107mmol/L (98-107) Carbon Dioxide Level 32mmol/L (21-32) Anion Gap 5 (6-14) Blood Urea Nitrogen 25mg/dL (8-26) Creatinine 0.9mg/dL (0.7-1.3) Estimated GFR (Cockcroft-Gault) 84.7 BUN/Creatinine Ratio 28 (6-20) Glucose Level 241mg/dL (70-99) Calcium Level 8.6mg/dL (8.5-10.1) Total Bilirubin 0.2mg/dL (0.2-1.0) Aspartate Amino Transf (AST/SGOT) 17U/L (15-37) Alanine Aminotransferase (ALT/SGPT) 47U/L (16-63) Alkaline Phosphatase 43U/L (46-116) Total Protein 5.8g/dL (6.4-8.2) Albumin 2.6g/dL (3.4-5.0) Albumin/Globulin Ratio 0.8 (1.0-1.7) O2 Saturation 91% (92-99) Arterial Blood pH 7.31 (7.35-7.45) Arterial Blood pCO2 at Patient Temp 63mmHg (35-46) Arterial Blood pO2 at Patient Temp 67mmHg (65-108) Arterial Blood HCO3 31mmol/L (21-28) Arterial Blood Base Excess 3mmol/L (-3-3) FiO2 40 Glucose (Fingerstick) 166mg/dL (70-99) 182mg/dL (70-99) Test 09/07/16 05:40 09/07/16 05:45 Sodium Level 145mmol/L (136-145) Potassium Level 4.6mmol/L (3.5-5.1) Chloride Level 107mmol/L (98-107) Carbon Dioxide Level 32mmol/L (21-32) Anion Gap 6 (6-14) Blood Urea Nitrogen 27mg/dL (8-26) Creatinine 0.8mg/dL (0.7-1.3) Estimated GFR (Cockcroft-Gault) 97.0 BUN/Creatinine Ratio 34 (6-20) Glucose Level 194mg/dL (70-99) Calcium Level 8.4mg/dL (8.5-10.1) Total Bilirubin 0.2mg/dL (0.2-1.0) Aspartate Amino Transf (AST/SGOT) 13U/L (15-37) Alanine Aminotransferase (ALT/SGPT) 39U/L (16-63) Alkaline Phosphatase 39U/L (46-116) Total Protein 5.2g/dL (6.4-8.2) Albumin 2.3g/dL (3.4-5.0) Albumin/Globulin Ratio 0.8 (1.0-1.7) White Blood Count 5.3x10^3/uL (4.0-11.0) Red Blood Count 3.19x10^6/uL (4.30-5.70) Hemoglobin 10.4g/dL (13.0-17.5) Hematocrit 31.0% (39.0-53.0) Mean Corpuscular Volume 97fL (79-100) Mean Corpuscular Hemoglobin 33pg (25-35) Mean Corpuscular Hemoglobin Concent 33g/dL (31-37) Red Cell Distribution Width 14.1% (11.5-14.5) Platelet Count 157x10^3/uL (140-400) Neutrophils (%) (Auto) 82% (31-73) Lymphocytes (%) (Auto) 10% (24-48) Monocytes (%) (Auto) 9% (0-9) Eosinophils (%) (Auto) 0% (0-3) Basophils (%) (Auto) 0% (0-3) Neutrophils # (Auto) 4.4x10^3uL (1.8-7.7) Lymphocytes # (Auto) 0.5x10^3/uL (1.0-4.8) Monocytes # (Auto) 0.5x10^3/uL (0.0-1.1) Eosinophils # (Auto) 0.0x10^3/uL (0.0-0.7) Basophils # (Auto) 0.0x10^3/uL (0.0-0.2) Micro culture neg Objective Assessment Fever -better Hypotension better of pressors Acute resp failure -Intubated AECOPD - on steroids H/o CAD Plan Plan of Care Cont Vanc/Zosyn/Levoflox & Tamiflu Resp viral panel pending Monitor labs/cultures f/u cxr Critically ill JAVI OSCAR MD Sep 07, 2016 08:04
[2016-09-07] MEDS: BUDESONIDE 0.5 MG/2 ML NEBU NEB SCH ×2 (08:51→20:41)
[2016-09-07] MEDS: ALBUTEROL SULFATE 2.5 MG/3 ML NEBU. NEB SCH ×4 (08:51→20:41)
[2016-09-07] MEDS: VANCOMYCIN PER PHARMACY MC PRN ×3 (09:10→21:44)
[2016-09-07 09:11] LABS: HCO3 ABG 27 mmol/L (21-28); PCO2 ABG 43 mmHg (35-46); PH ABG 7.42 (7.35-7.45); PO2 ABG 115 mmHg (65-108); SAT O2 ABG 98 % (92-99)
[2016-09-07] MEDS: FOLIC ACID 1 MG TABLET PO SCH (09:31)
[2016-09-07] MEDS: CHLORHEXIDINE 0.12% 15 ML MOUTHWASH. SWSP SCH ×2 (09:31→21:52)
[2016-09-07] MEDS: PHENYTOIN 100 MG/4 ML ORAL.SUSP. PEG SCH ×2 (09:31→21:45)
[2016-09-07] MEDS: OSELTAMIVIR 75 MG CAPSULE PO SCH (09:31)
[2016-09-07] MEDS: ENOXAPARIN 40 MG/0.4 ML DISP.SYRIN. SQ SCH (09:31)
[2016-09-07] MEDS: PANTOPRAZOLE IV PUSH 40 MG VIAL. IVP SCH (09:31)
[2016-09-07] MEDS: ASPIRIN 81 MG TAB.CHEW PO SCH (09:32)
[2016-09-07] MEDS: VANCOMYCIN 1.5 GM in IV NORMAL SALINE 500ML BAG 500 ML IV SCH (09:32)
[2016-09-07] MEDS: INSULIN ASPART 300 UNITS/3 ML INSULN.PEN SQ SCH ×3 (09:33→17:00)
[2016-09-07 10:04] LABS: FIO2 ABG 40
--- NOTE | 2016-09-07 10:17 | RAD ---
Portable chest, 09/07/2016: History: Respiratory failure Comparison is made to a study from 09/06/2016. The ET tube has its tip located well above the jv. An NG tube extends at least to the level of the GE junction, although its tip is not visible. The heart size is normal. There are emphysematous changes in the lungs with scattered parenchymal scars. Surgical sutures are present in the right upper lobe. No acute infiltrate is seen. There is no evidence of pleural fluid or pneumothorax. IMPRESSION: No significant change since yesterday's study.
[2016-09-07 11:41] LABS: HCO3 ABG 32 mmol/L (21-28); PCO2 ABG 55 mmHg (35-46); PH ABG 7.37 (7.35-7.45); PO2 ABG 85 mmHg (65-108); SAT O2 ABG 95 % (92-99)
[2016-09-07 11:44] LABS: FIO2 ABG 40
[2016-09-07] MEDS: FENTANYL STANDARD PCA 30 ML IV PRN ×2 (12:00→21:47)
--- NOTE | 2016-09-07 12:21 | PDOC ---
PULMONARY PROGRESS NOTES Subjective intubated evening of 09/01 Pt did not do well on trial Vitals Vital Signs Date Time Temp Pulse Resp B/P Pulse Ox O2 Delivery O2 Flow Rate FiO2 09/07/16 11:00 81 164/77 99 T-Tube 09/07/16 10:00 28 09/07/16 08:00 98.5 98.5 09/06/16 21:58 15.0 HEENT: Other (nc at, perrl, orally intubated, nose clear) Lungs: Other (decrease bs) Cardiovascular: S1, S2 Abdomen: Soft, Non-tender, Other (no mass) Extremities: No Edema Skin: Warm Labs Laboratory Tests Test 09/06/16 01:45 09/06/16 06:09 09/06/16 07:11 09/06/16 09:05 Glucose (Fingerstick) 184mg/dL (70-99) 219mg/dL (70-99) O2 Saturation 95% (92-99) Arterial Blood pH 7.38 (7.35-7.45) Arterial Blood pCO2 at Patient Temp 53mmHg (35-46) Arterial Blood pO2 at Patient Temp 84mmHg (65-108) Arterial Blood HCO3 30mmol/L (21-28) Arterial Blood Base Excess 4mmol/L (-3-3) FiO2 40 White Blood Count 5.8x10^3/uL (4.0-11.0) Red Blood Count 3.56x10^6/uL (4.30-5.70) Hemoglobin 11.6g/dL (13.0-17.5) Hematocrit 34.6% (39.0-53.0) Mean Corpuscular Volume 97fL (79-100) Mean Corpuscular Hemoglobin 33pg (25-35) Mean Corpuscular Hemoglobin Concent 33g/dL (31-37) Red Cell Distribution Width 14.4% (11.5-14.5) Platelet Count 162x10^3/uL (140-400) Neutrophils (%) (Auto) 84% (31-73) Lymphocytes (%) (Auto) 7% (24-48) Monocytes (%) (Auto) 9% (0-9) Eosinophils (%) (Auto) 0% (0-3) Basophils (%) (Auto) 0% (0-3) Neutrophils # (Auto) 4.8x10^3uL (1.8-7.7) Lymphocytes # (Auto) 0.4x10^3/uL (1.0-4.8) Monocytes # (Auto) 0.5x10^3/uL (0.0-1.1) Eosinophils # (Auto) 0.0x10^3/uL (0.0-0.7) Basophils # (Auto) 0.0x10^3/uL (0.0-0.2) Sodium Level 144mmol/L (136-145) Potassium Level 4.2mmol/L (3.5-5.1) Chloride Level 107mmol/L (98-107) Carbon Dioxide Level 32mmol/L (21-32) Anion Gap 5 (6-14) Blood Urea Nitrogen 25mg/dL (8-26) Creatinine 0.9mg/dL (0.7-1.3) Estimated GFR (Cockcroft-Gault) 84.7 BUN/Creatinine Ratio 28 (6-20) Glucose Level 241mg/dL (70-99) Calcium Level 8.6mg/dL (8.5-10.1) Total Bilirubin 0.2mg/dL (0.2-1.0) Aspartate Amino Transf (AST/SGOT) 17U/L (15-37) Alanine Aminotransferase (ALT/SGPT) 47U/L (16-63) Alkaline Phosphatase 43U/L (46-116) Total Protein 5.8g/dL (6.4-8.2) Albumin 2.6g/dL (3.4-5.0) Albumin/Globulin Ratio 0.8 (1.0-1.7) Test 09/06/16 10:08 09/06/16 12:18 09/06/16 16:52 09/07/16 05:40 O2 Saturation 91% (92-99) Arterial Blood pH 7.31 (7.35-7.45) Arterial Blood pCO2 at Patient Temp 63mmHg (35-46) Arterial Blood pO2 at Patient Temp 67mmHg (65-108) Arterial Blood HCO3 31mmol/L (21-28) Arterial Blood Base Excess 3mmol/L (-3-3) FiO2 40 Glucose (Fingerstick) 166mg/dL (70-99) 182mg/dL (70-99) Sodium Level 145mmol/L (136-145) Potassium Level 4.6mmol/L (3.5-5.1) Chloride Level 107mmol/L (98-107) Carbon Dioxide Level 32mmol/L (21-32) Anion Gap 6 (6-14) Blood Urea Nitrogen 27mg/dL (8-26) Creatinine 0.8mg/dL (0.7-1.3) Estimated GFR (Cockcroft-Gault) 97.0 BUN/Creatinine Ratio 34 (6-20) Glucose Level 194mg/dL (70-99) Calcium Level 8.4mg/dL (8.5-10.1) Total Bilirubin 0.2mg/dL (0.2-1.0) Aspartate Amino Transf (AST/SGOT) 13U/L (15-37) Alanine Aminotransferase (ALT/SGPT) 39U/L (16-63) Alkaline Phosphatase 39U/L (46-116) Total Protein 5.2g/dL (6.4-8.2) Albumin 2.3g/dL (3.4-5.0) Albumin/Globulin Ratio 0.8 (1.0-1.7) Test 09/07/16 05:45 09/07/16 08:45 09/07/16 09:21 09/07/16 11:20 White Blood Count 5.3x10^3/uL (4.0-11.0) Red Blood Count 3.19x10^6/uL (4.30-5.70) Hemoglobin 10.4g/dL (13.0-17.5) Hematocrit 31.0% (39.0-53.0) Mean Corpuscular Volume 97fL (79-100) Mean Corpuscular Hemoglobin 33pg (25-35) Mean Corpuscular Hemoglobin Concent 33g/dL (31-37) Red Cell Distribution Width 14.1% (11.5-14.5) Platelet Count 157x10^3/uL (140-400) Neutrophils (%) (Auto) 82% (31-73) Lymphocytes (%) (Auto) 10% (24-48) Monocytes (%) (Auto) 9% (0-9) Eosinophils (%) (Auto) 0% (0-3) Basophils (%) (Auto) 0% (0-3) Neutrophils # (Auto) 4.4x10^3uL (1.8-7.7) Lymphocytes # (Auto) 0.5x10^3/uL (1.0-4.8) Monocytes # (Auto) 0.5x10^3/uL (0.0-1.1) Eosinophils # (Auto) 0.0x10^3/uL (0.0-0.7) Basophils # (Auto) 0.0x10^3/uL (0.0-0.2) O2 Saturation 98% (92-99) 95% (92-99) Arterial Blood pH 7.42 (7.35-7.45) 7.37 (7.35-7.45) Arterial Blood pCO2 at Patient Temp 43mmHg (35-46) 55mmHg (35-46) Arterial Blood pO2 at Patient Temp 115mmHg (65-108) 85mmHg (65-108) Arterial Blood HCO3 27mmol/L (21-28) 32mmol/L (21-28) Arterial Blood Base Excess 3mmol/L (-3-3) 5mmol/L (-3-3) FiO2 40 40 Glucose (Fingerstick) 222mg/dL (70-99) Test 09/07/16 11:49 Glucose (Fingerstick) 168mg/dL (70-99) Laboratory Tests Test 09/06/16 12:18 09/06/16 16:52 09/07/16 05:40 09/07/16 05:45 Glucose (Fingerstick) 166mg/dL (70-99) 182mg/dL (70-99) Sodium Level 145mmol/L (136-145) Potassium Level 4.6mmol/L (3.5-5.1) Chloride Level 107mmol/L (98-107) Carbon Dioxide Level 32mmol/L (21-32) Anion Gap 6 (6-14) Blood Urea Nitrogen 27mg/dL (8-26) Creatinine 0.8mg/dL (0.7-1.3) Estimated GFR (Cockcroft-Gault) 97.0 BUN/Creatinine Ratio 34 (6-20) Glucose Level 194mg/dL (70-99) Calcium Level 8.4mg/dL (8.5-10.1) Total Bilirubin 0.2mg/dL (0.2-1.0) Aspartate Amino Transf (AST/SGOT) 13U/L (15-37) Alanine Aminotransferase (ALT/SGPT) 39U/L (16-63) Alkaline Phosphatase 39U/L (46-116) Total Protein 5.2g/dL (6.4-8.2) Albumin 2.3g/dL (3.4-5.0) Albumin/Globulin Ratio 0.8 (1.0-1.7) White Blood Count 5.3x10^3/uL (4.0-11.0) Red Blood Count 3.19x10^6/uL (4.30-5.70) Hemoglobin 10.4g/dL (13.0-17.5) Hematocrit 31.0% (39.0-53.0) Mean Corpuscular Volume 97fL (79-100) Mean Corpuscular Hemoglobin 33pg (25-35) Mean Corpuscular Hemoglobin Concent 33g/dL (31-37) Red Cell Distribution Width 14.1% (11.5-14.5) Platelet Count 157x10^3/uL (140-400) Neutrophils (%) (Auto) 82% (31-73) Lymphocytes (%) (Auto) 10% (24-48) Monocytes (%) (Auto) 9% (0-9) Eosinophils (%) (Auto) 0% (0-3) Basophils (%) (Auto) 0% (0-3) Neutrophils # (Auto) 4.4x10^3uL (1.8-7.7) Lymphocytes # (Auto) 0.5x10^3/uL (1.0-4.8) Monocytes # (Auto) 0.5x10^3/uL (0.0-1.1) Eosinophils # (Auto) 0.0x10^3/uL (0.0-0.7) Basophils # (Auto) 0.0x10^3/uL (0.0-0.2) Test 09/07/16 08:45 09/07/16 09:21 09/07/16 11:20 09/07/16 11:49 O2 Saturation 98% (92-99) 95% (92-99) Arterial Blood pH 7.42 (7.35-7.45) 7.37 (7.35-7.45) Arterial Blood pCO2 at Patient Temp 43mmHg (35-46) 55mmHg (35-46) Arterial Blood pO2 at Patient Temp 115mmHg (65-108) 85mmHg (65-108) Arterial Blood HCO3 27mmol/L (21-28) 32mmol/L (21-28) Arterial Blood Base Excess 3mmol/L (-3-3) 5mmol/L (-3-3) FiO2 40 40 Glucose (Fingerstick) 222mg/dL (70-99) 168mg/dL (70-99) Medications Active Scripts Medications Dose Route/Sig Days Date Category Dilantin (Phenytoin Sodium Extended) 100 Mg Capsule 200 Mg PO HS 02/08/15 Rx Levaquin (Levofloxacin) 500 Mg Tablet 500 Mg PO DAILY06 02/08/15 Rx Prednisone 20 Mg Tablet 40 Mg PO DAILY 02/08/15 Rx Saline Nasal [place] (Sodium Chloride) 30 Ml [place] 30 Ml NS PRN PRN 02/04/15 Reported Proair Hfa Inhaler (Albuterol Sulfate) 8.5 Gm Hfa.aer.ad 2 Puff IH PRN Q4-6HRS PRN 02/04/15 Reported Cyanocobalamin Injection (Cyanocobalamin (Vitamin B-12)) 1,000 Mcg/1 Ml Vial 1,000 Mcg IJ QMONTH 02/04/15 Reported Hydrocodone-Apap 7.5-325 (Hydrocodone Bit/Acetaminophen) 1 Each Tablet 1 Tab PO BID PRN 02/04/15 Reported Albuterol Sulfate Conc Neb Soln (Albuterol Sulfate) 2.5 Mg/0.5 Ml Vial.neb 2.5 Mg IH PRN Q4HRS PRN 08/16/13 Reported NITRO-DUR 0.6mg/hr (Nitroglycerin) 1 Each Patch.td24 1 Each TD DAILY 08/16/13 Reported Symbicort 160-4.5 Mcg Inhaler (Budesonide/Formoterol Fumarate) 10.2 Gm Hfa.aer.ad 10.2 Gm IH BID 08/16/13 Reported Aspirin 81 Mg Tab.chew 243 Mg PO DAILY 08/16/13 Reported Metoprolol Succinate ( Xl ) (Metoprolol Succinate) 25 Mg Tab.er.24h 25 Mg PO DAILY 1/22/14 Reported NITROGLYCERIN SubLingual (Nitroglycerin) 0.4 Mg Tab.subl 0.4 Mg SL PRN 1X 08/16/13 Reported Folic Acid 1 Mg Tablet 1 Mg PO DAILY 08/16/13 Reported Lisinopril 5 Mg Tablet 5 Mg PO DAILY 08/16/13 Reported Spiriva (Tiotropium Munden) 18 Mcg Cap.w.dev 18 Mcg IH DAILY 08/16/13 Reported Simvastatin 40 Mg Tablet 40 Mg PO HS 08/16/13 Reported Comments CXR/ reviewed, ett ok, b lat hyperinflation ct reviewed, Slight increase in size of noncalcified pulmonary nodule in the left upper lobe relative to an exam 02/03/2016. Small primary malignancy is not excluded. Impression . 1. Bfbke-bi-bceggdf hypercapnic respiratory failure secondary to acute exacerbation of chronic obstructive pulmonary disease with diffuse bronchospasm. intubated 2. History of oxygen-dependent chronic obstructive pulmonary disease. 3. 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 4. History of lung nodule slightly bigger on recent exam, in past patient was not deemed to be a candidate for biopsy 5. Pneumonia 6. septic shock 7. Metabolic Acidosis Plan . Pt did not do well on trial, not ready for extubation 1. cont vent support, 2. Follow ABG/ 3. off pressor 4. Nebulizer treatment. 5. solumedrol 6. Hold off metoprolol , BP, low 7. CT chest without contrast further increase lung nodules Left lung (still too small)/ continue f/u ct in 4 months 8. BS antibiotic 9. [facility] MD Sep 07, 2016 12:21
--- NOTE | 2016-09-07 17:07 | PDOC ---
PROGRESS NOTES Subjective Subjective pt seen in icu this morning, waiting to be extubated Objective Objective Vital Signs Date Time Temp Pulse Resp B/P Pulse Ox O2 Delivery O2 Flow Rate FiO2 09/07/16 16:00 Mechanical Ventilator 09/07/16 15:29 99 09/07/16 15:00 61 28 100/63 09/07/16 12:00 98.4 98.4 09/07/16 10:50 10.0 Intake and Output 09/07/16 07:00 Intake Total 3209.3 ml Output Total 1525 ml Balance 1684.3 ml Intake Oral 0 ml IV Total 1596.3 ml Tube Feeding 1416 ml Other 197 ml Output Urine Total 1525 ml Physical Exam Abdomen: Soft Heart: Regular rate, Normal S1, Normal S2, Other (heart tones difficult to appreciapte ) Extremities: No edema, Normal pulses General: Other (intubated/sedated) HEENT: Atraumatic, Mucous membr. moist/pink Lungs: Clear to auscultation, Other (intubated ) MUSCULOSKELETAL: Osteoarthritic changes both hands Neck: Supple Neuro: Normal tone Psych/Mental Status: Other (unable to assess ) Skin: No rashes, No significant lesion COMMENT aashish, on vent ET tube Diagnosis Problem List Problems Medical Problems: (1) COPD (chronic obstructive pulmonary disease) with acute bronchitis Status: Acute Assessment Assessment Problems Medical Problems: (1) COPD (chronic obstructive pulmonary disease) with acute bronchitis Status: Acute FINAL IMPRESSION: Ac resp failure on vent Fever with sepsis . Hypotension on levophed . borderline elevated troponin. 1. Acute respiratory failure, requiring intubation 09/01/16 2. Acute chronic obstructive pulmonary disease with acute exacerbation failed BIPAP. 3. Hypotension. 4. Hyperlipidemia. 5. History of seizures, on Dilantin. 6.h/o Lung surgery PLAN:labs good . c/s neg. influenza -neg trying weaning parameters not ready to extubate,hyperventilating iv antibiotics echo good LVF vent management intubation 09/01/16 fluid challenge . Levophed low dose. ct chest inc in lung nodules left side. spoke with pulmonary. iv antibiotics.iv steroids Tamiflu id consulted. ekg cardiology consult. Constipation- Dulcolax,senna-s. D/w family at bedside. Prognosis is poor. Problems: Plan Plan of Care Problems Medical Problems: (1) COPD (chronic obstructive pulmonary disease) with acute bronchitis Status: Acute Comment Review of Relevant I have reviewed the following items reggie (where applicable) has been applied. Labs Laboratory Tests Test 09/07/16 05:40 09/07/16 05:45 09/07/16 08:45 09/07/16 09:21 Sodium Level 145mmol/L (136-145) Potassium Level 4.6mmol/L (3.5-5.1) Chloride Level 107mmol/L (98-107) Carbon Dioxide Level 32mmol/L (21-32) Anion Gap 6 (6-14) Blood Urea Nitrogen 27mg/dL (8-26) Creatinine 0.8mg/dL (0.7-1.3) Estimated GFR (Cockcroft-Gault) 97.0 BUN/Creatinine Ratio 34 (6-20) Glucose Level 194mg/dL (70-99) Calcium Level 8.4mg/dL (8.5-10.1) Total Bilirubin 0.2mg/dL (0.2-1.0) Aspartate Amino Transf (AST/SGOT) 13U/L (15-37) Alanine Aminotransferase (ALT/SGPT) 39U/L (16-63) Alkaline Phosphatase 39U/L (46-116) Total Protein 5.2g/dL (6.4-8.2) Albumin 2.3g/dL (3.4-5.0) Albumin/Globulin Ratio 0.8 (1.0-1.7) White Blood Count 5.3x10^3/uL (4.0-11.0) Red Blood Count 3.19x10^6/uL (4.30-5.70) Hemoglobin 10.4g/dL (13.0-17.5) Hematocrit 31.0% (39.0-53.0) Mean Corpuscular Volume 97fL (79-100) Mean Corpuscular Hemoglobin 33pg (25-35) Mean Corpuscular Hemoglobin Concent 33g/dL (31-37) Red Cell Distribution Width 14.1% (11.5-14.5) Platelet Count 157x10^3/uL (140-400) Neutrophils (%) (Auto) 82% (31-73) Lymphocytes (%) (Auto) 10% (24-48) Monocytes (%) (Auto) 9% (0-9) Eosinophils (%) (Auto) 0% (0-3) Basophils (%) (Auto) 0% (0-3) Neutrophils # (Auto) 4.4x10^3uL (1.8-7.7) Lymphocytes # (Auto) 0.5x10^3/uL (1.0-4.8) Monocytes # (Auto) 0.5x10^3/uL (0.0-1.1) Eosinophils # (Auto) 0.0x10^3/uL (0.0-0.7) Basophils # (Auto) 0.0x10^3/uL (0.0-0.2) O2 Saturation 98% (92-99) Arterial Blood pH 7.42 (7.35-7.45) Arterial Blood pCO2 at Patient Temp 43mmHg (35-46) Arterial Blood pO2 at Patient Temp 115mmHg (65-108) Arterial Blood HCO3 27mmol/L (21-28) Arterial Blood Base Excess 3mmol/L (-3-3) FiO2 40 Glucose (Fingerstick) 222mg/dL (70-99) Test 09/07/16 11:20 09/07/16 11:49 O2 Saturation 95% (92-99) Arterial Blood pH 7.37 (7.35-7.45) Arterial Blood pCO2 at Patient Temp 55mmHg (35-46) Arterial Blood pO2 at Patient Temp 85mmHg (65-108) Arterial Blood HCO3 32mmol/L (21-28) Arterial Blood Base Excess 5mmol/L (-3-3) FiO2 40 Glucose (Fingerstick) 168mg/dL (70-99) Microbiology 09/02/16 Blood Culture - Final, Complete NO GROWTH AFTER 5 DAYS 09/02/16 Gram Stain - Final, Complete 09/02/16 Urine Culture - Final, Complete 09/02/16 Urine Culture Result 1 (SHIRA) - Final, Complete Medications Current Medications Chlorhexidine Gluconate (Peridex) 15 ml BID SWSP Last administered on t 09:31; Start 09/07/16 at 10:00 Vancomycin HCl 1 each 1X ONCE MC ; Start 09/07/16 at 20:30; Stop 09/07/16 at 20 :31 Vitals/I & O Vital Sign - Last 24 Hours 09/06/16 09/06/16 09/06/16/12/17 18:00 19:00 19:58 20:00 Temp 96.8 96.8 Pulse 57 60 57 Resp 28 28 28 B/P 126/70 130/71 140/81 Pulse Ox 99 100 100 100 O2 Delivery Ventilator Ventilator Ventilator Ventilator 09/06/16 09/06/16 09/06/16 09/06/16 20:00 21:00 21:28 21:58 Pulse 62 Resp 28 B/P 141/71 Pulse Ox 100 100 100 O2 Delivery Mechanical Ventilator Ventilator O2 Flow Rate 15.0 15.0 09/06/16 09/06/16 09/06/16 09/07/16 22:00 23:00 23:59 00:00 Temp 97.1 97.1 Pulse 57 57 92 Resp 28 28 30 B/P 125/70 139/75 183/93 Pulse Ox 100 100 99 O2 Delivery Ventilator Ventilator Mechanical Ventilator Ventilator 09/07/16 09/07/16 09/07/16 09/07/16 00:01 01:00 02:00 03:00 Pulse 86 70 67 Resp 30 28 28 B/P 146/83 147/71 99/61 Pulse Ox 100 99 100 99 O2 Delivery Ventilator Ventilator Ventilator Ventilator 09/07/16 09/07/16 09/07/16 09/07/16 03:48 04:00 04:00 05:00 Temp 98.1 98.1 Pulse 60 59 Resp 28 28 B/P 84/55 93/60 Pulse Ox 100 99 99 O2 Delivery Ventilator Mechanical Ventilator Ventilator Ventilator 09/07/16 09/07/16 09/07/16 09/07/16 06:00 07:00 08:00 08:00 Temp 98.5 98.5 Pulse 57 60 58 Resp 28 27 28 B/P 81/53 108/62 102/62 Pulse Ox 99 99 97 O2 Delivery Ventilator Ventilator Mechanical Ventilator Ventilator 09/07/16 09/07/16 09/07/16 09/07/16 08:45 09:00 10:00 10:50 Pulse 58 64 Resp 28 28 B/P 120/71 130/66 Pulse Ox 98 98 99 O2 Delivery Ventilator Ventilator Ventilator T-Tube O2 Flow Rate 10.0 09/07/16 09/07/16 09/07/16 09/07/16 11:00 12:00 12:00 12:27 Temp 98.4 98.4 Pulse 81 83 Resp 28 B/P 164/77 172/90 Pulse Ox 99 99 98 O2 Delivery T-Tube Mechanical Ventilator Ventilator Ventilator 09/07/16 09/07/16 09/07/16 09/07/16 13:00 14:00 15:00 15:29 Pulse 76 64 61 Resp 28 28 28 B/P 84/59 94/60 100/63 Pulse Ox 99 98 99 99 O2 Delivery Ventilator Ventilator Ventilator Ventilator 09/07/16 16:00 O2 Delivery Mechanical Ventilator Intake and Output 09/06/16 09/06/16 09/07/16 15:00 23:00 07:00 Intake Total 270 ml 1025.3 ml 1914 ml Output Total 675 ml 350 ml 500 ml Balance -405 ml 675.3 ml 1414 ml CATALINO PAGAN MD Sep 07, 2016 17:07
[2016-09-07] MEDS: SIMVASTATIN 40 MG TABLET. PO SCH (21:45)
[2016-09-08] VITALS (24 sets, daily range): BP systolic 79–212; BP diastolic 6–107
[2016-09-08] MEDS: PIPERACILLIN/TAZOBACTAM 3.375 GM in IV NORMAL SALINE 50ML 50 ML IV SCH ×2 (00:11→05:40)
[2016-09-08] MEDS: methylPREDNISolone SOD SUCC PF 125 MG/2 ML VIAL. IV SCH ×3 (05:58→20:58)
--- NOTE | 2016-09-08 07:52 | RAD ---
Portable chest, 09/08/2016: History: Respiratory distress, intubation Comparison is made to yesterday's study. The ET tube remains in place with its tip located well above the jv. An NG tube extends in the stomach. The heart size is normal. There are emphysematous changes in the lungs with scattered parenchymal scars. No acute infiltrates are seen. There is no evidence of pleural fluid. IMPRESSION: 1. The ET tube and NG tube are in satisfactory positions. 2. Emphysema. 3. No acute abnormality is detected.
--- NOTE | 2016-09-08 08:16 | PDOC ---
Infectious Disease Note Subjective Subjective Remains intubated/vent. FiO2 40% No fever ROS ROS unable to do Vital Sign Vital Signs Vital Signs Date Time Temp Pulse Resp B/P Pulse Ox O2 Delivery O2 Flow Rate FiO2 09/08/16 07:00 57 29 106/65 100 Ventilator 09/08/16 04:00 96.7 96.7 09/07/16 22:17 10.0 Physical Exam PHYSICAL EXAM GENERAL: nad on vent HEENT: PERRL, OC/OP NECK: Supple, no JVD, no LN LUNGS: Clear HEART: S1S2, no gallop, no murmur ABD: Soft, NT, no organomegaly, no rebound EXT: No edema, no cyanosis [employer]: sedated on vent SKIN: No rash IV: ok Labs Lab Laboratory Tests Test 09/07/16 08:45 09/07/16 09:21 09/07/16 11:20 09/07/16 11:49 O2 Saturation 98% (92-99) 95% (92-99) Arterial Blood pH 7.42 (7.35-7.45) 7.37 (7.35-7.45) Arterial Blood pCO2 at Patient Temp 43mmHg (35-46) 55mmHg (35-46) Arterial Blood pO2 at Patient Temp 115mmHg (65-108) 85mmHg (65-108) Arterial Blood HCO3 27mmol/L (21-28) 32mmol/L (21-28) Arterial Blood Base Excess 3mmol/L (-3-3) 5mmol/L (-3-3) FiO2 40 40 Glucose (Fingerstick) 222mg/dL (70-99) 168mg/dL (70-99) Test 09/07/16 17:24 09/07/16 20:30 Glucose (Fingerstick) 147mg/dL (70-99) Vancomycin Level Trough 21.8mcg/mL (10.0-20.0) Vancomycin Last Dose Date 09/07/16 Vancomycin Last Dose Time 0900 Micro culture neg Objective Assessment Fever -better Hypotension better of pressors Acute resp failure -Intubated AECOPD - on steroids H/o CAD Plan Plan of Care Cont levaquin, d/c rest Resp viral panel pending Monitor labs/cultures Critically ill JAVI OSCAR MD Sep 08, 2016 08:16
[2016-09-08] MEDS: BUDESONIDE 0.5 MG/2 ML NEBU NEB SCH ×2 (08:42→20:10)
[2016-09-08] MEDS: ALBUTEROL SULFATE 2.5 MG/3 ML NEBU. NEB SCH ×4 (08:42→20:10)
[2016-09-08] MEDS ORDERED: VANCOMYCIN 1.25 GM in IV NORMAL SALINE 250ML 250 ML IV SCH (09:00)
[2016-09-08] MEDS: PANTOPRAZOLE IV PUSH 40 MG VIAL. IVP SCH (09:39)
[2016-09-08] MEDS: PHENYTOIN 100 MG/4 ML ORAL.SUSP. PEG SCH ×2 (09:40→20:58)
[2016-09-08] MEDS: ASPIRIN 81 MG TAB.CHEW PO SCH (09:40)
[2016-09-08] MEDS: FOLIC ACID 1 MG TABLET PO SCH (09:40)
[2016-09-08] MEDS: ENOXAPARIN 40 MG/0.4 ML DISP.SYRIN. SQ SCH (09:40)
[2016-09-08] MEDS: CHLORHEXIDINE 0.12% 15 ML MOUTHWASH. SWSP SCH ×2 (09:40→20:58)
[2016-09-08] MEDS: INSULIN ASPART 300 UNITS/3 ML INSULN.PEN SQ SCH ×3 (09:41→17:00)
[2016-09-08] MEDS: FENTANYL STANDARD PCA 30 ML IV PRN ×2 (09:54→19:44)
[2016-09-08 10:05] LABS: BASO % 0 % (0-3); EOS % 0 % (0-3); HEMATOCRIT 34.1 % (39.0-53.0); HEMOGLOBIN 11.5 g/dL (13.0-17.5); LYMPH # 0.5 x10^3/uL (1.0-4.8); LYMPH % 7 % (24-48); MEAN CORPUSCULAR HEMOGLOBIN 33 pg (25-35); MEAN CORPUSCULAR HGB CONC 34 g/dL (31-37); MEAN CORPUSCULAR VOLUME 96 fL (79-100); MONO % 7 % (0-9); NEUT % 86 % (31-73); PLATELET COUNT 174 x10^3/uL (140-400); RED BLOOD COUNT 3.55 x10^6/uL (4.30-5.70); RED CELL DISTRIBUTION WIDTH 14.2 % (11.5-14.5); WHITE BLOOD COUNT 7.1 x10^3/uL (4.0-11.0)
--- NOTE | 2016-09-08 10:34 | PDOC ---
PROGRESS NOTES Subjective Subjective on vent awake, not able to wean off vent Objective Objective Vital Signs Date Time Temp Pulse Resp B/P Pulse Ox O2 Delivery O2 Flow Rate FiO2 09/08/16 08:42 100 Ventilator 09/08/16 07:00 57 29 106/65 09/08/16 04:00 96.7 96.7 09/07/16 22:17 10.0 Intake and Output 09/08/16 07:00 Intake Total 3133.19 ml Output Total 1425 ml Balance 1708.19 ml IV Total 1037.19 ml Tube Feeding 1521 ml Other 575 ml Output Urine Total 1425 ml Gastric Drainage Total 0 ml Physical Exam Abdomen: Soft Heart: Regular rate, Normal S1, Normal S2, Other (heart tones difficult to appreciapte ) Extremities: Normal pulses, Other (edema) General: Other (intubated/sedated) HEENT: Atraumatic, Mucous membr. moist/pink Lungs: Clear to auscultation, Other (intubated ) MUSCULOSKELETAL: Osteoarthritic changes both hands Neck: Supple Neuro: Normal tone Psych/Mental Status: Other (unable to assess ) Skin: No rashes, No significant lesion COMMENT aashish, on vent ET tube Diagnosis Problem List Problems Medical Problems: (1) COPD (chronic obstructive pulmonary disease) with acute bronchitis Status: Acute Assessment Assessment Problems Medical Problems: (1) COPD (chronic obstructive pulmonary disease) with acute bronchitis Status: Acute FINAL IMPRESSION: edema extremities . Ac resp failure on vent Fever with sepsis . Hypotension on levophed . borderline elevated troponin. 1. Acute respiratory failure, requiring intubation 09/01/16 2. Acute chronic obstructive pulmonary disease with acute exacerbation failed BIPAP. 3. Hypotension. 4. Hyperlipidemia. 5. History of seizures, on Dilantin. 6.h/o Lung surgery PLAN: iv lasix. picc line today. labs good . c/s neg. influenza -neg trying weaning parameters not ready to extubate,hyperventilating iv antibiotics echo good LVF vent management intubation 09/01/16 ct chest inc in lung nodules left side. spoke with pulmonary. iv antibiotics.iv steroids critically ill Problems: Plan Plan of Care Problems Medical Problems: (1) COPD (chronic obstructive pulmonary disease) with acute bronchitis Status: Acute Comment Review of Relevant I have reviewed the following items reggie (where applicable) has been applied. Labs Laboratory Tests Test 09/07/16 11:20 09/07/16 11:49 09/07/16 17:24 09/07/16 20:30 O2 Saturation 95% (92-99) Arterial Blood pH 7.37 (7.35-7.45) Arterial Blood pCO2 at Patient Temp 55mmHg (35-46) Arterial Blood pO2 at Patient Temp 85mmHg (65-108) Arterial Blood HCO3 32mmol/L (21-28) Arterial Blood Base Excess 5mmol/L (-3-3) FiO2 40 Glucose (Fingerstick) 168mg/dL (70-99) 147mg/dL (70-99) Vancomycin Level Trough 21.8mcg/mL (10.0-20.0) Vancomycin Last Dose Date 09/07/16 Vancomycin Last Dose Time 0900 Test 09/08/16 09:38 09/08/16 09:58 Glucose (Fingerstick) 176mg/dL (70-99) White Blood Count 7.1x10^3/uL (4.0-11.0) Red Blood Count 3.55x10^6/uL (4.30-5.70) Hemoglobin 11.5g/dL (13.0-17.5) Hematocrit 34.1% (39.0-53.0) Mean Corpuscular Volume 96fL (79-100) Mean Corpuscular Hemoglobin 33pg (25-35) Mean Corpuscular Hemoglobin Concent 34g/dL (31-37) Red Cell Distribution Width 14.2% (11.5-14.5) Platelet Count 174x10^3/uL (140-400) Neutrophils (%) (Auto) 86% (31-73) Lymphocytes (%) (Auto) 7% (24-48) Monocytes (%) (Auto) 7% (0-9) Eosinophils (%) (Auto) 0% (0-3) Basophils (%) (Auto) 0% (0-3) Neutrophils # (Auto) 6.1x10^3uL (1.8-7.7) Lymphocytes # (Auto) 0.5x10^3/uL (1.0-4.8) Monocytes # (Auto) 0.5x10^3/uL (0.0-1.1) Eosinophils # (Auto) 0.0x10^3/uL (0.0-0.7) Basophils # (Auto) 0.0x10^3/uL (0.0-0.2) Microbiology 09/02/16 Blood Culture - Final, Complete NO GROWTH AFTER 5 DAYS 09/02/16 Gram Stain - Final, Complete 09/02/16 Urine Culture - Final, Complete 09/02/16 Urine Culture Result 1 (SHIRA) - Final, Complete Medications Current Medications Vancomycin HCl 1 each 1X ONCE MC ; Start 09/09/16 at 08:30; Stop 09/09/16 at 08 :30; Status DC Vancomycin HCl 1 each 1 each 1X ONCE MC ; Start 09/07/16 at 20:30; Stop at 20:31; Status DC Vancomycin HCl/ Sodium Chloride (Iv Sodium Chloride 0.9% 250ml) 250 ml @ 167 mls/hr Q12H IV ; Start 09/08/16 at 09:00; Stop 09/08/16 at 09:00; Status DC Vitals/I & O Vital Sign - Last 24 Hours 09/07/16 09/07/16 09/07/16 09/07/16 10:50 11:00 12:00 12:00 Temp 98.4 98.4 Pulse 81 83 Resp 28 B/P 164/77 172/90 Pulse Ox 99 99 O2 Delivery T-Tube T-Tube Mechanical Ventilator Ventilator O2 Flow Rate 10.0 09/07/16 09/07/16 09/07/16 09/07/16 12:27 13:00 14:00 15:00 Pulse 76 64 61 Resp 28 28 B/P 84/59 94/60 100/63 Pulse Ox 98 99 98 99 O2 Delivery Ventilator Ventilator Ventilator Ventilator 09/07/16 09/07/16 09/07/16 09/07/16 15:29 16:00 16:00 17:00 Temp 98.5 98.5 Pulse 64 62 Resp 28 28 B/P 107/59 116/65 Pulse Ox 99 99 98 O2 Delivery Ventilator Mechanical Ventilator Ventilator Ventilator 09/07/16 09/07/16 09/07/16 09/07/16 18:00 19:00 20:00 20:00 Temp 98.3 98.3 Pulse 61 59 58 Resp 28 28 28 B/P 117/63 110/66 116/64 Pulse Ox 98 98 99 O2 Delivery Ventilator Ventilator Mechanical Ventilator Ventilator 09/07/16 09/07/16 09/07/16/13/17 20:43 20:43 21:00 21:47 Pulse 54 Resp 27 B/P 101/62 Pulse Ox 99 99 99 99 O2 Delivery Ventilator Ventilator Ventilator O2 Flow Rate 10.0 09/07/16 09/07/16 09/07/16 09/07/16 22:00 22:17 23:00 23:13 Pulse 53 54 Resp 28 28 28 B/P 113/63 91/58 Pulse Ox 98 100 98 99 O2 Delivery Ventilator Ventilator Ventilator O2 Flow Rate 10.0 09/07/16 09/08/16 09/08/16 09/08/16 23:59 00:00 01:00 01:23 Temp 96.8 96.8 Pulse 52 50 Resp 28 28 B/P 91/59 92/63 Pulse Ox 100 99 99 O2 Delivery Mechanical Ventilator Ventilator Ventilator Ventilator 09/08/16 09/08/16 09/08/16 09/08/16 02:00 03:00 04:00 04:00 Temp 96.7 96.7 Pulse 50 52 51 Resp 28 28 28 B/P 104/6 90/60 93/59 Pulse Ox 99 99 99 O2 Delivery Ventilator Ventilator Ventilator Mechanical Ventilator 09/08/16 09/08/16 09/08/16 09/08/16 04:11 05:00 06:00 07:00 Pulse 52 58 57 Resp 28 28 29 B/P 90/57 99/62 106/65 Pulse Ox 100 99 99 100 O2 Delivery Ventilator Ventilator Ventilator Ventilator 09/08/16 08:42 Pulse Ox 100 O2 Delivery Ventilator Intake and Output 09/07/16 09/07/16 09/08/16 15:00 23:00 07:00 Intake Total 625 ml 1368.19 ml 1140 ml Output Total 325 ml 500 ml 600 ml Balance 300 ml 868.19 ml 540 ml CATALINO PAGAN MD Sep 08, 2016 10:34
[2016-09-08 10:43] LABS: ALBUMIN 2.5 g/dL (3.4-5.0); ALBUMIN/GLOBULIN RATIO 0.8 (1.0-1.7); CALCIUM 8.6 mg/dL (8.5-10.1); POTASSIUM 4.9 mmol/L (3.5-5.1); TOTAL BILIRUBIN 0.2 mg/dL (0.2-1.0); TOTAL PROTEIN 5.7 g/dL (6.4-8.2)
--- NOTE | 2016-09-08 11:27 | PDOC ---
PULMONARY PROGRESS NOTES Subjective PT SEEN ON PS TRIAL Vitals Vital Signs Date Time Temp Pulse Resp B/P Pulse Ox O2 Delivery O2 Flow Rate FiO2 09/08/16 11:00 88 28 192/95 100 Ventilator 09/08/16 08:00 97.5 97.5 09/07/16 22:17 10.0 General: Alert HEENT: Other (nc at, perrl, orally intubated, nose clear) Lungs: Other (decrease bs) Cardiovascular: S1, S2 Abdomen: Soft, Non-tender, Other (no mass) Neuro Exam: Alert Extremities: No Edema Skin: Warm Labs Laboratory Tests Test 09/06/16 12:18 09/06/16 16:52 09/07/16 05:40 09/07/16 05:45 Glucose (Fingerstick) 166mg/dL (70-99) 182mg/dL (70-99) Sodium Level 145mmol/L (136-145) Potassium Level 4.6mmol/L (3.5-5.1) Chloride Level 107mmol/L (98-107) Carbon Dioxide Level 32mmol/L (21-32) Anion Gap 6 (6-14) Blood Urea Nitrogen 27mg/dL (8-26) Creatinine 0.8mg/dL (0.7-1.3) Estimated GFR (Cockcroft-Gault) 97.0 BUN/Creatinine Ratio 34 (6-20) Glucose Level 194mg/dL (70-99) Calcium Level 8.4mg/dL (8.5-10.1) Total Bilirubin 0.2mg/dL (0.2-1.0) Aspartate Amino Transf (AST/SGOT) 13U/L (15-37) Alanine Aminotransferase (ALT/SGPT) 39U/L (16-63) Alkaline Phosphatase 39U/L (46-116) Total Protein 5.2g/dL (6.4-8.2) Albumin 2.3g/dL (3.4-5.0) Albumin/Globulin Ratio 0.8 (1.0-1.7) White Blood Count 5.3x10^3/uL (4.0-11.0) Red Blood Count 3.19x10^6/uL (4.30-5.70) Hemoglobin 10.4g/dL (13.0-17.5) Hematocrit 31.0% (39.0-53.0) Mean Corpuscular Volume 97fL (79-100) Mean Corpuscular Hemoglobin 33pg (25-35) Mean Corpuscular Hemoglobin Concent 33g/dL (31-37) Red Cell Distribution Width 14.1% (11.5-14.5) Platelet Count 157x10^3/uL (140-400) Neutrophils (%) (Auto) 82% (31-73) Lymphocytes (%) (Auto) 10% (24-48) Monocytes (%) (Auto) 9% (0-9) Eosinophils (%) (Auto) 0% (0-3) Basophils (%) (Auto) 0% (0-3) Neutrophils # (Auto) 4.4x10^3uL (1.8-7.7) Lymphocytes # (Auto) 0.5x10^3/uL (1.0-4.8) Monocytes # (Auto) 0.5x10^3/uL (0.0-1.1) Eosinophils # (Auto) 0.0x10^3/uL (0.0-0.7) Basophils # (Auto) 0.0x10^3/uL (0.0-0.2) Test 09/07/16 08:45 09/07/16 09:21 09/07/16 11:20 09/07/16 11:49 O2 Saturation 98% (92-99) 95% (92-99) Arterial Blood pH 7.42 (7.35-7.45) 7.37 (7.35-7.45) Arterial Blood pCO2 at Patient Temp 43mmHg (35-46) 55mmHg (35-46) Arterial Blood pO2 at Patient Temp 115mmHg (65-108) 85mmHg (65-108) Arterial Blood HCO3 27mmol/L (21-28) 32mmol/L (21-28) Arterial Blood Base Excess 3mmol/L (-3-3) 5mmol/L (-3-3) FiO2 40 40 Glucose (Fingerstick) 222mg/dL (70-99) 168mg/dL (70-99) Test 09/07/16 17:24 09/07/16 20:30 09/08/16 09:38 09/08/16 09:58 Glucose (Fingerstick) 147mg/dL (70-99) 176mg/dL (70-99) Vancomycin Level Trough 21.8mcg/mL (10.0-20.0) Vancomycin Last Dose Date 09/07/16 Vancomycin Last Dose Time 0900 White Blood Count 7.1x10^3/uL (4.0-11.0) Red Blood Count 3.55x10^6/uL (4.30-5.70) Hemoglobin 11.5g/dL (13.0-17.5) Hematocrit 34.1% (39.0-53.0) Mean Corpuscular Volume 96fL (79-100) Mean Corpuscular Hemoglobin 33pg (25-35) Mean Corpuscular Hemoglobin Concent 34g/dL (31-37) Red Cell Distribution Width 14.2% (11.5-14.5) Platelet Count 174x10^3/uL (140-400) Neutrophils (%) (Auto) 86% (31-73) Lymphocytes (%) (Auto) 7% (24-48) Monocytes (%) (Auto) 7% (0-9) Eosinophils (%) (Auto) 0% (0-3) Basophils (%) (Auto) 0% (0-3) Neutrophils # (Auto) 6.1x10^3uL (1.8-7.7) Lymphocytes # (Auto) 0.5x10^3/uL (1.0-4.8) Monocytes # (Auto) 0.5x10^3/uL (0.0-1.1) Eosinophils # (Auto) 0.0x10^3/uL (0.0-0.7) Basophils # (Auto) 0.0x10^3/uL (0.0-0.2) Sodium Level 145mmol/L (136-145) Potassium Level 4.9mmol/L (3.5-5.1) Chloride Level 106mmol/L (98-107) Carbon Dioxide Level 34mmol/L (21-32) Anion Gap 5 (6-14) Blood Urea Nitrogen 36mg/dL (8-26) Creatinine 1.0mg/dL (0.7-1.3) Estimated GFR (Cockcroft-Gault) 75.0 BUN/Creatinine Ratio 36 (6-20) Glucose Level 211mg/dL (70-99) Calcium Level 8.6mg/dL (8.5-10.1) Total Bilirubin 0.2mg/dL (0.2-1.0) Aspartate Amino Transf (AST/SGOT) 13U/L (15-37) Alanine Aminotransferase (ALT/SGPT) 38U/L (16-63) Alkaline Phosphatase 44U/L (46-116) Total Protein 5.7g/dL (6.4-8.2) Albumin 2.5g/dL (3.4-5.0) Albumin/Globulin Ratio 0.8 (1.0-1.7) Laboratory Tests Test 09/07/16 11:49 09/07/16 17:24 09/07/16 20:30 09/08/16 09:38 Glucose (Fingerstick) 168mg/dL (70-99) 147mg/dL (70-99) 176mg/dL (70-99) Vancomycin Level Trough 21.8mcg/mL (10.0-20.0) Vancomycin Last Dose Date 09/07/16 Vancomycin Last Dose Time 0900 Test 09/08/16 09:58 White Blood Count 7.1x10^3/uL (4.0-11.0) Red Blood Count 3.55x10^6/uL (4.30-5.70) Hemoglobin 11.5g/dL (13.0-17.5) Hematocrit 34.1% (39.0-53.0) Mean Corpuscular Volume 96fL (79-100) Mean Corpuscular Hemoglobin 33pg (25-35) Mean Corpuscular Hemoglobin Concent 34g/dL (31-37) Red Cell Distribution Width 14.2% (11.5-14.5) Platelet Count 174x10^3/uL (140-400) Neutrophils (%) (Auto) 86% (31-73) Lymphocytes (%) (Auto) 7% (24-48) Monocytes (%) (Auto) 7% (0-9) Eosinophils (%) (Auto) 0% (0-3) Basophils (%) (Auto) 0% (0-3) Neutrophils # (Auto) 6.1x10^3uL (1.8-7.7) Lymphocytes # (Auto) 0.5x10^3/uL (1.0-4.8) Monocytes # (Auto) 0.5x10^3/uL (0.0-1.1) Eosinophils # (Auto) 0.0x10^3/uL (0.0-0.7) Basophils # (Auto) 0.0x10^3/uL (0.0-0.2) Sodium Level 145mmol/L (136-145) Potassium Level 4.9mmol/L (3.5-5.1) Chloride Level 106mmol/L (98-107) Carbon Dioxide Level 34mmol/L (21-32) Anion Gap 5 (6-14) Blood Urea Nitrogen 36mg/dL (8-26) Creatinine 1.0mg/dL (0.7-1.3) Estimated GFR (Cockcroft-Gault) 75.0 BUN/Creatinine Ratio 36 (6-20) Glucose Level 211mg/dL (70-99) Calcium Level 8.6mg/dL (8.5-10.1) Total Bilirubin 0.2mg/dL (0.2-1.0) Aspartate Amino Transf (AST/SGOT) 13U/L (15-37) Alanine Aminotransferase (ALT/SGPT) 38U/L (16-63) Alkaline Phosphatase 44U/L (46-116) Total Protein 5.7g/dL (6.4-8.2) Albumin 2.5g/dL (3.4-5.0) Albumin/Globulin Ratio 0.8 (1.0-1.7) Medications Active Scripts Medications Dose Route/Sig Days Date Category Dilantin (Phenytoin Sodium Extended) 100 Mg Capsule 200 Mg PO HS 02/08/15 Rx Levaquin (Levofloxacin) 500 Mg Tablet 500 Mg PO DAILY06 02/08/15 Rx Prednisone 20 Mg Tablet 40 Mg PO DAILY 02/08/15 Rx Saline Nasal Gilbert (Sodium Chloride) 30 Ml Gilbert 30 Ml NS PRN PRN 02/04/15 Reported Proair Hfa Inhaler (Albuterol Sulfate) 8.5 Gm Hfa.aer.ad 2 Puff IH PRN Q4-6HRS PRN 02/04/15 Reported Cyanocobalamin Injection (Cyanocobalamin (Vitamin B-12)) 1,000 Mcg/1 Ml Vial 1,000 Mcg IJ QMONTH 02/04/15 Reported Hydrocodone-Apap 7.5-325 (Hydrocodone Bit/Acetaminophen) 1 Each Tablet 1 Tab PO BID PRN 02/04/15 Reported Albuterol Sulfate Conc Neb Soln (Albuterol Sulfate) 2.5 Mg/0.5 Ml Vial.neb 2.5 Mg IH PRN Q4HRS PRN 08/16/13 Reported NITRO-DUR 0.6mg/hr (Nitroglycerin) 1 Each Patch.td24 1 Each TD DAILY 08/16/13 Reported Symbicort 160-4.5 Mcg Inhaler (Budesonide/Formoterol Fumarate) 10.2 Gm Hfa.aer.ad 10.2 Gm IH BID 08/16/13 Reported Aspirin 81 Mg Tab.chew 243 Mg PO DAILY 08/16/13 Reported Metoprolol Succinate ( Xl ) (Metoprolol Succinate) 25 Mg Tab.er.24h 25 Mg PO DAILY 08/16/13 Reported NITROGLYCERIN SubLingual (Nitroglycerin) 0.4 Mg Tab.subl 0.4 Mg SL PRN 1X 08/16/13 Reported Folic Acid 1 Mg Tablet 1 Mg PO DAILY 08/16/13 Reported Lisinopril 5 Mg Tablet 5 Mg PO DAILY 08/16/13 Reported Spiriva (Tiotropium [place]) 18 Mcg Cap.w.dev 18 Mcg IH DAILY 08/16/13 Reported Simvastatin 40 Mg Tablet 40 Mg PO HS 08/16/13 Reported Comments CXR/ reviewed, ett ok, b lat hyperinflation ct reviewed, Slight increase in size of noncalcified pulmonary nodule in the left upper lobe relative to an exam 02/03/2016. Small primary malignancy is not excluded. Impression . 1. [id number]-ty-[id number] hypercapnic respiratory failure secondary to acute exacerbation of chronic obstructive pulmonary disease with diffuse bronchospasm. intubated 2. History of oxygen-dependent chronic obstructive pulmonary disease. 3. 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 4. History of lung nodule slightly bigger on recent exam, in past patient was not deemed to be a candidate for biopsy 5. Pneumonia 6. septic shock 7. Metabolic Acidosis Plan . DID WELL ON TRIAL WILL CHECK ABG IF NOT HYPERCAPNIC WILL EXTUBATE NEBS [address] OF CHEST IN 4 MONTHS ERMA MARTINS MD Sep 08, 2016 11:27
[2016-09-08 12:22] LABS: HCO3 ABG 34 mmol/L (21-28); PCO2 ABG 55 mmHg (35-46); PH ABG 7.42 (7.35-7.45); PO2 ABG 90 mmHg (65-108); SAT O2 ABG 96 % (92-99)
[2016-09-08 12:26] LABS: FIO2 ABG 40
[2016-09-08] MEDS: FUROSEMIDE 40 MG/4 ML VIAL IVP SCH (13:14)
[2016-09-08] MEDS: PROPOFOL 100 ML IV PRN (15:53)
--- NOTE | 2016-09-08 16:32 | RAD ---
Portable chest, 09/08/2016, 4:00 PM: History: Check PICC placement Comparison is made to study of earlier the same day. A right PICC has been placed extending to the level of the atriocaval junction. The ET tube and NG tube appear to be unchanged in positions. There is emphysema with parenchymal scarring. No new pulmonary abnormality is detected. IMPRESSION: 1. Interval insertion of a right PICC in satisfactory position. 2. No other significant change since earlier in the day.
[2016-09-08] MEDS: SIMVASTATIN 40 MG TABLET. PO SCH (20:58)
[2016-09-09] VITALS (23 sets, daily range): BP systolic 98–215; BP diastolic 59–103
[2016-09-09] MEDS: PROPOFOL 100 ML IV PRN (04:59)
[2016-09-09] MEDS: methylPREDNISolone SOD SUCC PF 125 MG/2 ML VIAL. IV SCH ×3 (05:30→21:44)
[2016-09-09 05:59] LABS: BASO % 0 % (0-3); EOS % 0 % (0-3); HEMATOCRIT 33.5 % (39.0-53.0); HEMOGLOBIN 10.9 g/dL (13.0-17.5); LYMPH # 0.7 x10^3/uL (1.0-4.8); LYMPH % 10 % (24-48); MEAN CORPUSCULAR HEMOGLOBIN 32 pg (25-35); MEAN CORPUSCULAR HGB CONC 33 g/dL (31-37); MEAN CORPUSCULAR VOLUME 98 fL (79-100); MONO % 11 % (0-9); NEUT % 78 % (31-73); PLATELET COUNT 173 x10^3/uL (140-400); RED BLOOD COUNT 3.42 x10^6/uL (4.30-5.70); RED CELL DISTRIBUTION WIDTH 13.9 % (11.5-14.5); WHITE BLOOD COUNT 7.2 x10^3/uL (4.0-11.0)
[2016-09-09 06:17] LABS: ALBUMIN 2.4 g/dL (3.4-5.0); ALBUMIN/GLOBULIN RATIO 0.8 (1.0-1.7); CALCIUM 8.6 mg/dL (8.5-10.1); CREATININE 0.7 mg/dL (0.7-1.3); GFR 113.2; POTASSIUM 4.6 mmol/L (3.5-5.1); TOTAL BILIRUBIN 0.2 mg/dL (0.2-1.0); TOTAL PROTEIN 5.5 g/dL (6.4-8.2)
[2016-09-09] MEDS: INSULIN ASPART 300 UNITS/3 ML INSULN.PEN SQ SCH ×3 (08:00→17:00)
--- NOTE | 2016-09-09 08:15 | PDOC ---
Infectious Disease Note Subjective Subjective Remains intubated/vent. FiO2 40% No fever ROS ROS unable to do Vital Sign Vital Signs Vital Signs Date Time Temp Pulse Resp B/P Pulse Ox O2 Delivery O2 Flow Rate FiO2 09/09/16 07:00 57 28 113/69 100 Ventilator 09/09/16 04:00 97.5 97.5 Physical Exam PHYSICAL EXAM GENERAL: NAD, on vent HEENT: PERRL, OC/OP NECK: Supple, no JVD, no LN LUNGS: Clear HEART: S1S2, no gallop, no murmur ABD: Soft, NT, no organomegaly, no rebound EXT: No edema, no cyanosis [employer]IAN: sedated on vent SKIN: No rash IV: ok Labs Lab Laboratory Tests Test 09/08/16 09:38 09/08/16 09:58 09/08/16 12:15 09/08/16 12:28 Glucose (Fingerstick) 176mg/dL (70-99) 131mg/dL (70-99) White Blood Count 7.1x10^3/uL (4.0-11.0) Red Blood Count 3.55x10^6/uL (4.30-5.70) Hemoglobin 11.5g/dL (13.0-17.5) Hematocrit 34.1% (39.0-53.0) Mean Corpuscular Volume 96fL (79-100) Mean Corpuscular Hemoglobin 33pg (25-35) Mean Corpuscular Hemoglobin Concent 34g/dL (31-37) Red Cell Distribution Width 14.2% (11.5-14.5) Platelet Count 174x10^3/uL (140-400) Neutrophils (%) (Auto) 86% (31-73) Lymphocytes (%) (Auto) 7% (24-48) Monocytes (%) (Auto) 7% (0-9) Eosinophils (%) (Auto) 0% (0-3) Basophils (%) (Auto) 0% (0-3) Neutrophils # (Auto) 6.1x10^3uL (1.8-7.7) Lymphocytes # (Auto) 0.5x10^3/uL (1.0-4.8) Monocytes # (Auto) 0.5x10^3/uL (0.0-1.1) Eosinophils # (Auto) 0.0x10^3/uL (0.0-0.7) Basophils # (Auto) 0.0x10^3/uL (0.0-0.2) Sodium Level 145mmol/L (136-145) Potassium Level 4.9mmol/L (3.5-5.1) Chloride Level 106mmol/L (98-107) Carbon Dioxide Level 34mmol/L (21-32) Anion Gap 5 (6-14) Blood Urea Nitrogen 36mg/dL (8-26) Creatinine 1.0mg/dL (0.7-1.3) Estimated GFR (Cockcroft-Gault) 75.0 BUN/Creatinine Ratio 36 (6-20) Glucose Level 211mg/dL (70-99) Calcium Level 8.6mg/dL (8.5-10.1) Total Bilirubin 0.2mg/dL (0.2-1.0) Aspartate Amino Transf (AST/SGOT) 13U/L (15-37) Alanine Aminotransferase (ALT/SGPT) 38U/L (16-63) Alkaline Phosphatase 44U/L (46-116) Total Protein 5.7g/dL (6.4-8.2) Albumin 2.5g/dL (3.4-5.0) Albumin/Globulin Ratio 0.8 (1.0-1.7) O2 Saturation 96% (92-99) Arterial Blood pH 7.42 (7.35-7.45) Arterial Blood pCO2 at Patient Temp 55mmHg (35-46) Arterial Blood pO2 at Patient Temp 90mmHg (65-108) Arterial Blood HCO3 34mmol/L (21-28) Arterial Blood Base Excess 8mmol/L (-3-3) FiO2 40 Test 09/08/16 17:16 09/09/16 05:25 Glucose (Fingerstick) 134mg/dL (70-99) White Blood Count 7.2x10^3/uL (4.0-11.0) Red Blood Count 3.42x10^6/uL (4.30-5.70) Hemoglobin 10.9g/dL (13.0-17.5) Hematocrit 33.5% (39.0-53.0) Mean Corpuscular Volume 98fL (79-100) Mean Corpuscular Hemoglobin 32pg (25-35) Mean Corpuscular Hemoglobin Concent 33g/dL (31-37) Red Cell Distribution Width 13.9% (11.5-14.5) Platelet Count 173x10^3/uL (140-400) Neutrophils (%) (Auto) 78% (31-73) Lymphocytes (%) (Auto) 10% (24-48) Monocytes (%) (Auto) 11% (0-9) Eosinophils (%) (Auto) 0% (0-3) Basophils (%) (Auto) 0% (0-3) Neutrophils # (Auto) 5.6x10^3uL (1.8-7.7) Lymphocytes # (Auto) 0.7x10^3/uL (1.0-4.8) Monocytes # (Auto) 0.8x10^3/uL (0.0-1.1) Eosinophils # (Auto) 0.0x10^3/uL (0.0-0.7) Basophils # (Auto) 0.0x10^3/uL (0.0-0.2) Sodium Level 144mmol/L (136-145) Potassium Level 4.6mmol/L (3.5-5.1) Chloride Level 105mmol/L (98-107) Carbon Dioxide Level 35mmol/L (21-32) Anion Gap 4 (6-14) Blood Urea Nitrogen 39mg/dL (8-26) Creatinine 0.7mg/dL (0.7-1.3) Estimated GFR (Cockcroft-Gault) 113.2 BUN/Creatinine Ratio 56 (6-20) Glucose Level 183mg/dL (70-99) Calcium Level 8.6mg/dL (8.5-10.1) Total Bilirubin 0.2mg/dL (0.2-1.0) Aspartate Amino Transf (AST/SGOT) 27U/L (15-37) Alanine Aminotransferase (ALT/SGPT) 55U/L (16-63) Alkaline Phosphatase 47U/L (46-116) Total Protein 5.5g/dL (6.4-8.2) Albumin 2.4g/dL (3.4-5.0) Albumin/Globulin Ratio 0.8 (1.0-1.7) Micro culture neg Objective Assessment Fever -better Hypotension better of pressors Acute resp failure -Intubated AECOPD - on steroids H/o CAD Plan Plan of Care Cont brian, Resp viral panel pending Monitor labs/cultures Critically ill JAVI OSCAR MD Sep 09, 2016 08:15
[2016-09-09] MEDS: CHLORHEXIDINE 0.12% 15 ML MOUTHWASH. SWSP SCH ×2 (08:29→21:44)
[2016-09-09] MEDS: PHENYTOIN 100 MG/4 ML ORAL.SUSP. PEG SCH ×2 (08:29→21:00)
[2016-09-09] MEDS: FUROSEMIDE 40 MG/4 ML VIAL IVP SCH (08:29)
[2016-09-09] MEDS: ASPIRIN 81 MG TAB.CHEW PO SCH (08:29)
[2016-09-09] MEDS: FOLIC ACID 1 MG TABLET PO SCH (08:29)
[2016-09-09] MEDS: PANTOPRAZOLE IV PUSH 40 MG VIAL. IVP SCH (08:29)
[2016-09-09] MEDS: FENTANYL STANDARD PCA 30 ML IV PRN (08:31)
[2016-09-09] MEDS: ALBUTEROL SULFATE 2.5 MG/3 ML NEBU. NEB SCH ×4 (09:18→19:35)
[2016-09-09] MEDS: BUDESONIDE 0.5 MG/2 ML NEBU NEB SCH ×2 (09:18→19:35)
[2016-09-09] MEDS: ENOXAPARIN 40 MG/0.4 ML DISP.SYRIN. SQ SCH (09:32)
--- NOTE | 2016-09-09 10:33 | PDOC ---
PROGRESS NOTES Subjective Subjective on vent, wide awake Objective Objective Vital Signs Date Time Temp Pulse Resp B/P Pulse Ox O2 Delivery O2 Flow Rate FiO2 09/09/16 10:00 58 28 98/59 100 Ventilator 09/09/16 08:00 97.9 97.9 Intake and Output 09/09/16 07:00 Intake Total 2090.45 ml Output Total 4185 ml Balance -2094.55 ml IV Total 359.45 ml Tube Feeding 1181 ml Other 550 ml Output Urine Total 4185 ml Gastric Drainage Total 0 ml Physical Exam Abdomen: Soft Heart: Regular rate, Normal S1, Normal S2, Other (heart tones difficult to appreciapte ) Extremities: Normal pulses, Other (edema) General: Other (intubated/sedated) HEENT: Atraumatic, Mucous membr. moist/pink Lungs: Clear to auscultation, Other (intubated ) MUSCULOSKELETAL: Osteoarthritic changes both hands Neck: Supple Neuro: Normal tone Psych/Mental Status: Other (unable to assess ) Skin: No rashes, No significant lesion COMMENT aashish, on vent ET tube Diagnosis Problem List Problems Medical Problems: (1) COPD (chronic obstructive pulmonary disease) with acute bronchitis Status: Acute Assessment Assessment Problems Medical Problems: (1) COPD (chronic obstructive pulmonary disease) with acute bronchitis Status: Acute FINAL IMPRESSION: edema extremities . Ac resp failure on vent Fever with sepsis . Hypotension on levophed . borderline elevated troponin. 1. Acute respiratory failure, requiring intubation 09/01/16 2. Acute chronic obstructive pulmonary disease with acute exacerbation failed BIPAP. 3. Hypotension. 4. Hyperlipidemia. 5. History of seizures, on Dilantin. 6.h/o Lung surgery PLAN: iv lasix , swelling down picc line placed yesterday. iv steroids labs good . c/s neg. influenza -neg trying weaning parameters not ready to extubate,hyperventilating iv antibiotics echo good LVF vent management intubation 09/01/16 ct chest inc in lung nodules left side. spoke with pulmonary. iv antibiotics.iv steroids critically ill Problems: Plan Plan of Care Problems Medical Problems: (1) COPD (chronic obstructive pulmonary disease) with acute bronchitis Status: Acute Comment Review of Relevant I have reviewed the following items reggie (where applicable) has been applied. Labs Laboratory Tests Test 09/08/16 12:15 09/08/16 12:28 2/14/17 17:16 09/09/16 05:25 O2 Saturation 96% (92-99) Arterial Blood pH 7.42 (7.35-7.45) Arterial Blood pCO2 at Patient Temp 55mmHg (35-46) Arterial Blood pO2 at Patient Temp 90mmHg (65-108) Arterial Blood HCO3 34mmol/L (21-28) Arterial Blood Base Excess 8mmol/L (-3-3) FiO2 40 Glucose (Fingerstick) 131mg/dL (70-99) 134mg/dL (70-99) White Blood Count 7.2x10^3/uL (4.0-11.0) Red Blood Count 3.42x10^6/uL (4.30-5.70) Hemoglobin 10.9g/dL (13.0-17.5) Hematocrit 33.5% (39.0-53.0) Mean Corpuscular Volume 98fL (79-100) Mean Corpuscular Hemoglobin 32pg (25-35) Mean Corpuscular Hemoglobin Concent 33g/dL (31-37) Red Cell Distribution Width 13.9% (11.5-14.5) Platelet Count 173x10^3/uL (140-400) Neutrophils (%) (Auto) 78% (31-73) Lymphocytes (%) (Auto) 10% (24-48) Monocytes (%) (Auto) 11% (0-9) Eosinophils (%) (Auto) 0% (0-3) Basophils (%) (Auto) 0% (0-3) Neutrophils # (Auto) 5.6x10^3uL (1.8-7.7) Lymphocytes # (Auto) 0.7x10^3/uL (1.0-4.8) Monocytes # (Auto) 0.8x10^3/uL (0.0-1.1) Eosinophils # (Auto) 0.0x10^3/uL (0.0-0.7) Basophils # (Auto) 0.0x10^3/uL (0.0-0.2) Sodium Level 144mmol/L (136-145) Potassium Level 4.6mmol/L (3.5-5.1) Chloride Level 105mmol/L (98-107) Carbon Dioxide Level 35mmol/L (21-32) Anion Gap 4 (6-14) Blood Urea Nitrogen 39mg/dL (8-26) Creatinine 0.7mg/dL (0.7-1.3) Estimated GFR (Cockcroft-Gault) 113.2 BUN/Creatinine Ratio 56 (6-20) Glucose Level 183mg/dL (70-99) Calcium Level 8.6mg/dL (8.5-10.1) Total Bilirubin 0.2mg/dL (0.2-1.0) Aspartate Amino Transf (AST/SGOT) 27U/L (15-37) Alanine Aminotransferase (ALT/SGPT) 55U/L (16-63) Alkaline Phosphatase 47U/L (46-116) Total Protein 5.5g/dL (6.4-8.2) Albumin 2.4g/dL (3.4-5.0) Albumin/Globulin Ratio 0.8 (1.0-1.7) Test 09/09/16 08:31 Glucose (Fingerstick) 143mg/dL (70-99) Microbiology 09/02/16 Blood Culture - Final, Complete NO GROWTH AFTER 5 DAYS 09/02/16 Gram Stain - Final, Complete 09/02/16 Urine Culture - Final, Complete 09/02/16 Urine Culture Result 1 (SHIRA) - Final, Complete Medications Current Medications Vancomycin HCl 1 each 1X ONCE MC ; Start 09/09/16 at 08:30; Stop 09/09/16 at 08 :30; Status DC Vitals/I & O Vital Sign - Last 24 Hours 09/08/16 09/08/16 09/08/16 09/08/16 11:00 11:49 12:00 12:00 Temp 98.4 98.4 Pulse 88 91 Resp 28 22 B/P 192/95 183/90 Pulse Ox 100 98 99 O2 Delivery Ventilator Ventilator Mechanical Ventilator Ventilator 09/08/16 09/08/16 09/08/16 09/08/16 13:00 13:15 14:00 15:00 Pulse 122 92 82 Resp 16 16 25 B/P 212/107 140/82 116/72 Pulse Ox 97 96 97 O2 Delivery Ventilator Ventilator Ventilator Ventilator 09/08/16 09/08/16 09/08/16 09/08/16 16:00 16:00 16:32 17:00 Temp 98.1 98.1 Pulse 87 72 Resp 24 28 B/P 122/79 79/65 Pulse Ox 98 98 100 O2 Delivery Mechanical Ventilator Ventilator Ventilator Ventilator 09/08/16 09/08/16 09/08/16 09/08/16 18:00 19:00 19:58 20:00 Temp 97.5 97.5 Pulse 62 65 64 Resp 28 28 28 B/P 82/55 98/58 136/71 Pulse Ox 100 100 99 O2 Delivery Ventilator Ventilator Mechanical Ventilator Ventilator 09/08/16 09/08/16 09/08/16 09/08/16 20:10 21:00 22:00 23:00 Pulse 61 59 61 Resp 28 28 27 B/P 105/70 109/63 104/61 Pulse Ox 99 100 100 100 O2 Delivery Ventilator Ventilator Ventilator Ventilator 09/08/16 09/08/16 09/09/16 09/09/16 23:05 23:59 00:00 01:00 Temp 97.8 97.8 Pulse 65 61 Resp 27 27 B/P 136/70 150/79 Pulse Ox 100 100 100 O2 Delivery Ventilator Mechanical Ventilator Ventilator Ventilator 09/09/16 09/09/16 09/09/16 09/09/16 01:20 02:00 03:00 04:00 Temp 97.5 97.5 Pulse 58 78 67 Resp 30 29 27 B/P 109/66 171/88 156/84 Pulse Ox 100 98 100 100 O2 Delivery Ventilator Ventilator Ventilator Ventilator 09/09/16 09/09/16 09/09/16 09/09/16 04:00 05:00 05:01 06:00 Pulse 63 59 Resp 27 28 B/P 122/70 120/73 Pulse Ox 100 100 100 O2 Delivery Mechanical Ventilator Ventilator Ventilator Ventilator 09/09/16 09/09/16 09/09/16 09/09/16 07:00 08:00 08:00 09:00 Temp 97.9 97.9 Pulse 57 68 Resp 28 28 B/P 113/69 113/65 Pulse Ox 100 100 100 O2 Delivery Ventilator Ventilator Mechanical Ventilator Ventilator 09/09/16 09/09/16 09:00 10:00 Pulse 60 58 Resp 28 28 B/P 118/68 98/59 Pulse Ox 100 100 O2 Delivery Ventilator Ventilator Intake and Output 09/08/16 09/08/16 09/09/16 15:00 23:00 07:00 Intake Total 0 ml 1027.45 ml 1063 ml Output Total 450 ml 3255 ml 480 ml Balance -450 ml -2227.55 ml 583 ml CATALINO PAGAN MD Sep 09, 2016 10:33
--- NOTE | 2016-09-09 11:42 | PDOC ---
PULMONARY PROGRESS NOTES Subjective PT SEEN ON PS TRIAL Vitals Vital Signs Date Time Temp Pulse Resp B/P Pulse Ox O2 Delivery O2 Flow Rate FiO2 09/09/16 10:00 58 28 98/59 100 Ventilator 09/09/16 08:00 97.9 97.9 General: Alert HEENT: Other (nc at, perrl, orally intubated, nose clear) Lungs: Other (decrease bs) Cardiovascular: S1, S2 Abdomen: Soft, Non-tender, Other (no mass) Neuro Exam: Alert Extremities: No Edema Skin: Warm Labs Laboratory Tests Test 09/07/16 11:49 09/07/16 17:24 09/07/16 20:30 09/08/16 09:38 Glucose (Fingerstick) 168mg/dL (70-99) 147mg/dL (70-99) 176mg/dL (70-99) Vancomycin Level Trough 21.8mcg/mL (10.0-20.0) Vancomycin Last Dose Date 09/07/16 Vancomycin Last Dose Time 0900 Test 09/08/16 09:58 09/08/16 12:15 09/08/16 12:28 09/08/16 17:16 White Blood Count 7.1x10^3/uL (4.0-11.0) Red Blood Count 3.55x10^6/uL (4.30-5.70) Hemoglobin 11.5g/dL (13.0-17.5) Hematocrit 34.1% (39.0-53.0) Mean Corpuscular Volume 96fL (79-100) Mean Corpuscular Hemoglobin 33pg (25-35) Mean Corpuscular Hemoglobin Concent 34g/dL (31-37) Red Cell Distribution Width 14.2% (11.5-14.5) Platelet Count 174x10^3/uL (140-400) Neutrophils (%) (Auto) 86% (31-73) Lymphocytes (%) (Auto) 7% (24-48) Monocytes (%) (Auto) 7% (0-9) Eosinophils (%) (Auto) 0% (0-3) Basophils (%) (Auto) 0% (0-3) Neutrophils # (Auto) 6.1x10^3uL (1.8-7.7) Lymphocytes # (Auto) 0.5x10^3/uL (1.0-4.8) Monocytes # (Auto) 0.5x10^3/uL (0.0-1.1) Eosinophils # (Auto) 0.0x10^3/uL (0.0-0.7) Basophils # (Auto) 0.0x10^3/uL (0.0-0.2) Sodium Level 145mmol/L (136-145) Potassium Level 4.9mmol/L (3.5-5.1) Chloride Level 106mmol/L (98-107) Carbon Dioxide Level 34mmol/L (21-32) Anion Gap 5 (6-14) Blood Urea Nitrogen 36mg/dL (8-26) Creatinine 1.0mg/dL (0.7-1.3) Estimated GFR (Cockcroft-Gault) 75.0 BUN/Creatinine Ratio 36 (6-20) Glucose Level 211mg/dL (70-99) Calcium Level 8.6mg/dL (8.5-10.1) Total Bilirubin 0.2mg/dL (0.2-1.0) Aspartate Amino Transf (AST/SGOT) 13U/L (15-37) Alanine Aminotransferase (ALT/SGPT) 38U/L (16-63) Alkaline Phosphatase 44U/L (46-116) Total Protein 5.7g/dL (6.4-8.2) Albumin 2.5g/dL (3.4-5.0) Albumin/Globulin Ratio 0.8 (1.0-1.7) O2 Saturation 96% (92-99) Arterial Blood pH 7.42 (7.35-7.45) Arterial Blood pCO2 at Patient Temp 55mmHg (35-46) Arterial Blood pO2 at Patient Temp 90mmHg (65-108) Arterial Blood HCO3 34mmol/L (21-28) Arterial Blood Base Excess 8mmol/L (-3-3) FiO2 40 Glucose (Fingerstick) 131mg/dL (70-99) 134mg/dL (70-99) Test 09/09/16 05:25 09/09/16 08:31 White Blood Count 7.2x10^3/uL (4.0-11.0) Red Blood Count 3.42x10^6/uL (4.30-5.70) Hemoglobin 10.9g/dL (13.0-17.5) Hematocrit 33.5% (39.0-53.0) Mean Corpuscular Volume 98fL (79-100) Mean Corpuscular Hemoglobin 32pg (25-35) Mean Corpuscular Hemoglobin Concent 33g/dL (31-37) Red Cell Distribution Width 13.9% (11.5-14.5) Platelet Count 173x10^3/uL (140-400) Neutrophils (%) (Auto) 78% (31-73) Lymphocytes (%) (Auto) 10% (24-48) Monocytes (%) (Auto) 11% (0-9) Eosinophils (%) (Auto) 0% (0-3) Basophils (%) (Auto) 0% (0-3) Neutrophils # (Auto) 5.6x10^3uL (1.8-7.7) Lymphocytes # (Auto) 0.7x10^3/uL (1.0-4.8) Monocytes # (Auto) 0.8x10^3/uL (0.0-1.1) Eosinophils # (Auto) 0.0x10^3/uL (0.0-0.7) Basophils # (Auto) 0.0x10^3/uL (0.0-0.2) Sodium Level 144mmol/L (136-145) Potassium Level 4.6mmol/L (3.5-5.1) Chloride Level 105mmol/L (98-107) Carbon Dioxide Level 35mmol/L (21-32) Anion Gap 4 (6-14) Blood Urea Nitrogen 39mg/dL (8-26) Creatinine 0.7mg/dL (0.7-1.3) Estimated GFR (Cockcroft-Gault) 113.2 BUN/Creatinine Ratio 56 (6-20) Glucose Level 183mg/dL (70-99) Calcium Level 8.6mg/dL (8.5-10.1) Total Bilirubin 0.2mg/dL (0.2-1.0) Aspartate Amino Transf (AST/SGOT) 27U/L (15-37) Alanine Aminotransferase (ALT/SGPT) 55U/L (16-63) Alkaline Phosphatase 47U/L (46-116) Total Protein 5.5g/dL (6.4-8.2) Albumin 2.4g/dL (3.4-5.0) Albumin/Globulin Ratio 0.8 (1.0-1.7) Glucose (Fingerstick) 143mg/dL (70-99) Laboratory Tests Test 09/08/16 12:15 09/08/16 12:28 09/08/16 17:16 09/09/16 05:25 O2 Saturation 96% (92-99) Arterial Blood pH 7.42 (7.35-7.45) Arterial Blood pCO2 at Patient Temp 55mmHg (35-46) Arterial Blood pO2 at Patient Temp 90mmHg (65-108) Arterial Blood HCO3 34mmol/L (21-28) Arterial Blood Base Excess 8mmol/L (-3-3) FiO2 40 Glucose (Fingerstick) 131mg/dL (70-99) 134mg/dL (70-99) White Blood Count 7.2x10^3/uL (4.0-11.0) Red Blood Count 3.42x10^6/uL (4.30-5.70) Hemoglobin 10.9g/dL (13.0-17.5) Hematocrit 33.5% (39.0-53.0) Mean Corpuscular Volume 98fL (79-100) Mean Corpuscular Hemoglobin 32pg (25-35) Mean Corpuscular Hemoglobin Concent 33g/dL (31-37) Red Cell Distribution Width 13.9% (11.5-14.5) Platelet Count 173x10^3/uL (140-400) Neutrophils (%) (Auto) 78% (31-73) Lymphocytes (%) (Auto) 10% (24-48) Monocytes (%) (Auto) 11% (0-9) Eosinophils (%) (Auto) 0% (0-3) Basophils (%) (Auto) 0% (0-3) Neutrophils # (Auto) 5.6x10^3uL (1.8-7.7) Lymphocytes # (Auto) 0.7x10^3/uL (1.0-4.8) Monocytes # (Auto) 0.8x10^3/uL (0.0-1.1) Eosinophils # (Auto) 0.0x10^3/uL (0.0-0.7) Basophils # (Auto) 0.0x10^3/uL (0.0-0.2) Sodium Level 144mmol/L (136-145) Potassium Level 4.6mmol/L (3.5-5.1) Chloride Level 105mmol/L (98-107) Carbon Dioxide Level 35mmol/L (21-32) Anion Gap 4 (6-14) Blood Urea Nitrogen 39mg/dL (8-26) Creatinine 0.7mg/dL (0.7-1.3) Estimated GFR (Cockcroft-Gault) 113.2 BUN/Creatinine Ratio 56 (6-20) Glucose Level 183mg/dL (70-99) Calcium Level 8.6mg/dL (8.5-10.1) Total Bilirubin 0.2mg/dL (0.2-1.0) Aspartate Amino Transf (AST/SGOT) 27U/L (15-37) Alanine Aminotransferase (ALT/SGPT) 55U/L (16-63) Alkaline Phosphatase 47U/L (46-116) Total Protein 5.5g/dL (6.4-8.2) Albumin 2.4g/dL (3.4-5.0) Albumin/Globulin Ratio 0.8 (1.0-1.7) Test 09/09/16 08:31 Glucose (Fingerstick) 143mg/dL (70-99) Medications Active Scripts Medications Dose Route/Sig Days Date Category Dilantin (Phenytoin Sodium Extended) 100 Mg Capsule 200 Mg PO HS 02/08/15 Rx Levaquin (Levofloxacin) 500 Mg Tablet 500 Mg PO DAILY06 02/08/15 Rx Prednisone 20 Mg Tablet 40 Mg PO DAILY 02/08/15 Rx Saline Nasal [place] (Sodium Chloride) 30 Ml [place] 30 Ml NS PRN PRN 02/04/15 Reported Proair Hfa Inhaler (Albuterol Sulfate) 8.5 Gm Hfa.aer.ad 2 Puff IH PRN Q4-6HRS PRN 02/04/15 Reported Cyanocobalamin Injection (Cyanocobalamin (Vitamin B-12)) 1,000 Mcg/1 Ml Vial 1,000 Mcg IJ QMONTH 02/04/15 Reported Hydrocodone-Apap 7.5-325 (Hydrocodone Bit/Acetaminophen) 1 Each Tablet 1 Tab PO BID PRN 02/04/15 Reported Albuterol Sulfate Conc Neb Soln (Albuterol Sulfate) 2.5 Mg/0.5 Ml Vial.neb 2.5 Mg IH PRN Q4HRS PRN 08/16/13 Reported NITRO-DUR 0.6mg/hr (Nitroglycerin) 1 Each Patch.td24 1 Each TD DAILY 08/16/13 Reported Symbicort 160-4.5 Mcg Inhaler (Budesonide/Formoterol Fumarate) 10.2 Gm Hfa.aer.ad 10.2 Gm IH BID 08/16/13 Reported Aspirin 81 Mg Tab.chew 243 Mg PO DAILY 08/16/13 Reported Metoprolol Succinate ( Xl ) (Metoprolol Succinate) 25 Mg Tab.er.24h 25 Mg PO DAILY 08/16/13 Reported NITROGLYCERIN SubLingual (Nitroglycerin) 0.4 Mg Tab.subl 0.4 Mg SL PRN 1X 08/16/13 Reported Folic Acid 1 Mg Tablet 1 Mg PO DAILY 08/16/13 Reported Lisinopril 5 Mg Tablet 5 Mg PO DAILY 08/16/13 Reported Spiriva (Tiotropium [place]) 18 Mcg Cap.w.dev 18 Mcg IH DAILY 08/16/13 Reported Simvastatin 40 Mg Tablet 40 Mg PO HS 08/16/13 Reported Comments CXR/ reviewed, ett ok, b lat hyperinflation ct reviewed, Slight increase in size of noncalcified pulmonary nodule in the left upper lobe relative to an exam 02/03/2016. Small primary malignancy is not excluded. Impression . 1. [id number] hypercapnic respiratory failure secondary to acute exacerbation of chronic obstructive pulmonary disease with diffuse bronchospasm. intubated 2. History of oxygen-dependent chronic obstructive pulmonary disease. 3. 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 4. History of lung nodule slightly bigger on recent exam, in past patient was not deemed to be a candidate for biopsy 5. Pneumonia 6. septic shock 7. Metabolic Acidosis Plan . EXTUBATE TO PRN BIPAP NEBS [address] OF CHEST IN 4 MONTHS ERMA MARTINS MD Sep 09, 2016 11:42
[2016-09-09] MEDS: hydrALAZINE 20 MG/ML VIAL. IVP PRN ×3 (13:31→23:32)
[2016-09-09] MEDS: SIMVASTATIN 40 MG TABLET. PO SCH (21:00)
[2016-09-09] MEDS: LORAZEPAM 2 MG/ML VIAL IV PRN (21:44)
[2016-09-10] VITALS (24 sets, daily range): BP systolic 116–198; BP diastolic 72–111
[2016-09-10] MEDS: methylPREDNISolone SOD SUCC PF 125 MG/2 ML VIAL. IV SCH ×3 (05:51→22:42)
[2016-09-10 06:08] LABS: BASO % 0 % (0-3); EOS % 0 % (0-3); HEMATOCRIT 38.8 % (39.0-53.0); LYMPH # 1.3 x10^3/uL (1.0-4.8); LYMPH % 9 % (24-48); MEAN CORPUSCULAR HEMOGLOBIN 32 pg (25-35); MEAN CORPUSCULAR HGB CONC 34 g/dL (31-37); MEAN CORPUSCULAR VOLUME 95 fL (79-100); MONO % 12 % (0-9); NEUT % 79 % (31-73); PLATELET COUNT 202 x10^3/uL (140-400); RED BLOOD COUNT 4.07 x10^6/uL (4.30-5.70); RED CELL DISTRIBUTION WIDTH 14.1 % (11.5-14.5); WHITE BLOOD COUNT 14.6 x10^3/uL (4.0-11.0)
[2016-09-10] MEDS: hydrALAZINE 20 MG/ML VIAL. IVP PRN ×2 (06:24→16:34)
[2016-09-10 06:25] LABS: ALBUMIN 2.9 g/dL (3.4-5.0); ALBUMIN/GLOBULIN RATIO 0.9 (1.0-1.7); CALCIUM 9.2 mg/dL (8.5-10.1); CREATININE 0.8 mg/dL (0.7-1.3); POTASSIUM 4.1 mmol/L (3.5-5.1); TOTAL BILIRUBIN 0.4 mg/dL (0.2-1.0); TOTAL PROTEIN 6.2 g/dL (6.4-8.2)
--- NOTE | 2016-09-10 07:29 | PDOC ---
Infectious Disease Note Subjective Subjective extubated on bipap ROS ROS no n/v/d/pain Vital Sign Vital Signs Vital Signs Date Time Temp Pulse Resp B/P Pulse Ox O2 Delivery O2 Flow Rate FiO2 09/10/16 06:24 101 188/101 09/10/16 06:00 22 96 BiPAP/CPAP 09/10/16 04:00 97.5 97.5 09/09/16 13:25 10.0 Physical Exam PHYSICAL EXAM GENERAL: , Alert on bipap HEENT: PERRL, OC/OP NECK: Supple, no JVD, no LN LUNGS: Clear HEART: S1S2, no gallop, no murmur ABD: Soft, NT, no organomegaly, no rebound EXT: No edema, no cyanosis RECREATIONAL DIRECTOR: Alert, able to communicate, moves all ext SKIN: No rash IV: ok Labs Lab Laboratory Tests Test 09/09/16 08:31 09/09/16 13:29 09/09/16 17:59 09/10/16 05:47 Glucose (Fingerstick) 143mg/dL (70-99) 130mg/dL (70-99) 144mg/dL (70-99) White Blood Count 14.6x10^3/uL (4.0-11.0) Red Blood Count 4.07x10^6/uL (4.30-5.70) Hemoglobin 13.0g/dL (13.0-17.5) Hematocrit 38.8% (39.0-53.0) Mean Corpuscular Volume 95fL (79-100) Mean Corpuscular Hemoglobin 32pg (25-35) Mean Corpuscular Hemoglobin Concent 34g/dL (31-37) Red Cell Distribution Width 14.1% (11.5-14.5) Platelet Count 202x10^3/uL (140-400) Neutrophils (%) (Auto) 79% (31-73) Lymphocytes (%) (Auto) 9% (24-48) Monocytes (%) (Auto) 12% (0-9) Eosinophils (%) (Auto) 0% (0-3) Basophils (%) (Auto) 0% (0-3) Neutrophils # (Auto) 11.5x10^3uL (1.8-7.7) Lymphocytes # (Auto) 1.3x10^3/uL (1.0-4.8) Monocytes # (Auto) 1.7x10^3/uL (0.0-1.1) Eosinophils # (Auto) 0.0x10^3/uL (0.0-0.7) Basophils # (Auto) 0.0x10^3/uL (0.0-0.2) Sodium Level 145mmol/L (136-145) Potassium Level 4.1mmol/L (3.5-5.1) Chloride Level 104mmol/L (98-107) Carbon Dioxide Level 34mmol/L (21-32) Anion Gap 7 (6-14) Blood Urea Nitrogen 36mg/dL (8-26) Creatinine 0.8mg/dL (0.7-1.3) Estimated GFR (Cockcroft-Gault) 97.0 BUN/Creatinine Ratio 45 (6-20) Glucose Level 92mg/dL (70-99) Calcium Level 9.2mg/dL (8.5-10.1) Total Bilirubin 0.4mg/dL (0.2-1.0) Aspartate Amino Transf (AST/SGOT) 35U/L (15-37) Alanine Aminotransferase (ALT/SGPT) 66U/L (16-63) Alkaline Phosphatase 59U/L (46-116) Total Protein 6.2g/dL (6.4-8.2) Albumin 2.9g/dL (3.4-5.0) Albumin/Globulin Ratio 0.9 (1.0-1.7) Micro culture neg Objective Assessment Fever -better Hypotension better of pressors Acute resp failure -Intubated 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
[2016-09-10] MEDS: ALBUTEROL SULFATE 2.5 MG/3 ML NEBU. NEB SCH ×4 (07:34→20:09)
[2016-09-10] MEDS: BUDESONIDE 0.5 MG/2 ML NEBU NEB SCH ×2 (07:38→20:09)
[2016-09-10] MEDS: INSULIN ASPART 300 UNITS/3 ML INSULN.PEN SQ SCH ×3 (08:00→17:00)
[2016-09-10] MEDS: FOLIC ACID 1 MG TABLET PO SCH (08:43)
[2016-09-10] MEDS: PHENYTOIN 100 MG/4 ML ORAL.SUSP. PEG SCH ×2 (08:43→21:00)
[2016-09-10] MEDS: ASPIRIN 81 MG TAB.CHEW PO SCH (08:43)
[2016-09-10] MEDS: ENOXAPARIN 40 MG/0.4 ML DISP.SYRIN. SQ SCH (08:49)
[2016-09-10] MEDS: FUROSEMIDE 40 MG/4 ML VIAL IVP SCH (08:50)
[2016-09-10] MEDS: PANTOPRAZOLE IV PUSH 40 MG VIAL. IVP SCH (08:50)
[2016-09-10] MEDS: CHLORHEXIDINE 0.12% 15 ML MOUTHWASH. SWSP SCH ×2 (09:00→22:43)
--- NOTE | 2016-09-10 09:38 | PDOC ---
PULMONARY PROGRESS NOTES Subjective PT ON BIPAP Vitals Vital Signs Date Time Temp Pulse Resp B/P Pulse Ox O2 Delivery O2 Flow Rate FiO2 09/10/16 08:41 96 BiPAP/CPAP 09/10/16 06:24 101 188/101 09/10/16 06:00 22 09/10/16 04:00 97.5 97.5 09/09/16 13:25 10.0 General: Alert HEENT: Other (nc at, perrl, orally intubated, nose clear) Lungs: Other (decrease bs) Cardiovascular: S1, S2 Abdomen: Soft, Non-tender, Other (no mass) Neuro Exam: Alert Extremities: No Edema Skin: Warm Labs Laboratory Tests Test 09/08/16 09:58 09/08/16 12:15 09/08/16 12:28 09/08/16 17:16 White Blood Count 7.1x10^3/uL (4.0-11.0) Red Blood Count 3.55x10^6/uL (4.30-5.70) Hemoglobin 11.5g/dL (13.0-17.5) Hematocrit 34.1% (39.0-53.0) Mean Corpuscular Volume 96fL (79-100) Mean Corpuscular Hemoglobin 33pg (25-35) Mean Corpuscular Hemoglobin Concent 34g/dL (31-37) Red Cell Distribution Width 14.2% (11.5-14.5) Platelet Count 174x10^3/uL (140-400) Neutrophils (%) (Auto) 86% (31-73) Lymphocytes (%) (Auto) 7% (24-48) Monocytes (%) (Auto) 7% (0-9) Eosinophils (%) (Auto) 0% (0-3) Basophils (%) (Auto) 0% (0-3) Neutrophils # (Auto) 6.1x10^3uL (1.8-7.7) Lymphocytes # (Auto) 0.5x10^3/uL (1.0-4.8) Monocytes # (Auto) 0.5x10^3/uL (0.0-1.1) Eosinophils # (Auto) 0.0x10^3/uL (0.0-0.7) Basophils # (Auto) 0.0x10^3/uL (0.0-0.2) Sodium Level 145mmol/L (136-145) Potassium Level 4.9mmol/L (3.5-5.1) Chloride Level 106mmol/L (98-107) Carbon Dioxide Level 34mmol/L (21-32) Anion Gap 5 (6-14) Blood Urea Nitrogen 36mg/dL (8-26) Creatinine 1.0mg/dL (0.7-1.3) Estimated GFR (Cockcroft-Gault) 75.0 BUN/Creatinine Ratio 36 (6-20) Glucose Level 211mg/dL (70-99) Calcium Level 8.6mg/dL (8.5-10.1) Total Bilirubin 0.2mg/dL (0.2-1.0) Aspartate Amino Transf (AST/SGOT) 13U/L (15-37) Alanine Aminotransferase (ALT/SGPT) 38U/L (16-63) Alkaline Phosphatase 44U/L (46-116) Total Protein 5.7g/dL (6.4-8.2) Albumin 2.5g/dL (3.4-5.0) Albumin/Globulin Ratio 0.8 (1.0-1.7) O2 Saturation 96% (92-99) Arterial Blood pH 7.42 (7.35-7.45) Arterial Blood pCO2 at Patient Temp 55mmHg (35-46) Arterial Blood pO2 at Patient Temp 90mmHg (65-108) Arterial Blood HCO3 34mmol/L (21-28) Arterial Blood Base Excess 8mmol/L (-3-3) FiO2 40 Glucose (Fingerstick) 131mg/dL (70-99) 134mg/dL (70-99) Test 09/09/16 05:25 09/09/16 08:31 09/09/16 13:29 09/09/16 17:59 White Blood Count 7.2x10^3/uL (4.0-11.0) Red Blood Count 3.42x10^6/uL (4.30-5.70) Hemoglobin 10.9g/dL (13.0-17.5) Hematocrit 33.5% (39.0-53.0) Mean Corpuscular Volume 98fL (79-100) Mean Corpuscular Hemoglobin 32pg (25-35) Mean Corpuscular Hemoglobin Concent 33g/dL (31-37) Red Cell Distribution Width 13.9% (11.5-14.5) Platelet Count 173x10^3/uL (140-400) Neutrophils (%) (Auto) 78% (31-73) Lymphocytes (%) (Auto) 10% (24-48) Monocytes (%) (Auto) 11% (0-9) Eosinophils (%) (Auto) 0% (0-3) Basophils (%) (Auto) 0% (0-3) Neutrophils # (Auto) 5.6x10^3uL (1.8-7.7) Lymphocytes # (Auto) 0.7x10^3/uL (1.0-4.8) Monocytes # (Auto) 0.8x10^3/uL (0.0-1.1) Eosinophils # (Auto) 0.0x10^3/uL (0.0-0.7) Basophils # (Auto) 0.0x10^3/uL (0.0-0.2) Sodium Level 144mmol/L (136-145) Potassium Level 4.6mmol/L (3.5-5.1) Chloride Level 105mmol/L (98-107) Carbon Dioxide Level 35mmol/L (21-32) Anion Gap 4 (6-14) Blood Urea Nitrogen 39mg/dL (8-26) Creatinine 0.7mg/dL (0.7-1.3) Estimated GFR (Cockcroft-Gault) 113.2 BUN/Creatinine Ratio 56 (6-20) Glucose Level 183mg/dL (70-99) Calcium Level 8.6mg/dL (8.5-10.1) Total Bilirubin 0.2mg/dL (0.2-1.0) Aspartate Amino Transf (AST/SGOT) 27U/L (15-37) Alanine Aminotransferase (ALT/SGPT) 55U/L (16-63) Alkaline Phosphatase 47U/L (46-116) Total Protein 5.5g/dL (6.4-8.2) Albumin 2.4g/dL (3.4-5.0) Albumin/Globulin Ratio 0.8 (1.0-1.7) Glucose (Fingerstick) 143mg/dL (70-99) 130mg/dL (70-99) 144mg/dL (70-99) Test 09/10/16 05:47 White Blood Count 14.6x10^3/uL (4.0-11.0) Red Blood Count 4.07x10^6/uL (4.30-5.70) Hemoglobin 13.0g/dL (13.0-17.5) Hematocrit 38.8% (39.0-53.0) Mean Corpuscular Volume 95fL (79-100) Mean Corpuscular Hemoglobin 32pg (25-35) Mean Corpuscular Hemoglobin Concent 34g/dL (31-37) Red Cell Distribution Width 14.1% (11.5-14.5) Platelet Count 202x10^3/uL (140-400) Neutrophils (%) (Auto) 79% (31-73) Lymphocytes (%) (Auto) 9% (24-48) Monocytes (%) (Auto) 12% (0-9) Eosinophils (%) (Auto) 0% (0-3) Basophils (%) (Auto) 0% (0-3) Neutrophils # (Auto) 11.5x10^3uL (1.8-7.7) Lymphocytes # (Auto) 1.3x10^3/uL (1.0-4.8) Monocytes # (Auto) 1.7x10^3/uL (0.0-1.1) Eosinophils # (Auto) 0.0x10^3/uL (0.0-0.7) Basophils # (Auto) 0.0x10^3/uL (0.0-0.2) Sodium Level 145mmol/L (136-145) Potassium Level 4.1mmol/L (3.5-5.1) Chloride Level 104mmol/L (98-107) Carbon Dioxide Level 34mmol/L (21-32) Anion Gap 7 (6-14) Blood Urea Nitrogen 36mg/dL (8-26) Creatinine 0.8mg/dL (0.7-1.3) Estimated GFR (Cockcroft-Gault) 97.0 BUN/Creatinine Ratio 45 (6-20) Glucose Level 92mg/dL (70-99) Calcium Level 9.2mg/dL (8.5-10.1) Total Bilirubin 0.4mg/dL (0.2-1.0) Aspartate Amino Transf (AST/SGOT) 35U/L (15-37) Alanine Aminotransferase (ALT/SGPT) 66U/L (16-63) Alkaline Phosphatase 59U/L (46-116) Total Protein 6.2g/dL (6.4-8.2) Albumin 2.9g/dL (3.4-5.0) Albumin/Globulin Ratio 0.9 (1.0-1.7) Laboratory Tests Test 09/09/16 13:29 09/09/16 17:59 09/10/16 05:47 Glucose (Fingerstick) 130mg/dL (70-99) 144mg/dL (70-99) White Blood Count 14.6x10^3/uL (4.0-11.0) Red Blood Count 4.07x10^6/uL (4.30-5.70) Hemoglobin 13.0g/dL (13.0-17.5) Hematocrit 38.8% (39.0-53.0) Mean Corpuscular Volume 95fL (79-100) Mean Corpuscular Hemoglobin 32pg (25-35) Mean Corpuscular Hemoglobin Concent 34g/dL (31-37) Red Cell Distribution Width 14.1% (11.5-14.5) Platelet Count 202x10^3/uL (140-400) Neutrophils (%) (Auto) 79% (31-73) Lymphocytes (%) (Auto) 9% (24-48) Monocytes (%) (Auto) 12% (0-9) Eosinophils (%) (Auto) 0% (0-3) Basophils (%) (Auto) 0% (0-3) Neutrophils # (Auto) 11.5x10^3uL (1.8-7.7) Lymphocytes # (Auto) 1.3x10^3/uL (1.0-4.8) Monocytes # (Auto) 1.7x10^3/uL (0.0-1.1) Eosinophils # (Auto) 0.0x10^3/uL (0.0-0.7) Basophils # (Auto) 0.0x10^3/uL (0.0-0.2) Sodium Level 145mmol/L (136-145) Potassium Level 4.1mmol/L (3.5-5.1) Chloride Level 104mmol/L (98-107) Carbon Dioxide Level 34mmol/L (21-32) Anion Gap 7 (6-14) Blood Urea Nitrogen 36mg/dL (8-26) Creatinine 0.8mg/dL (0.7-1.3) Estimated GFR (Cockcroft-Gault) 97.0 BUN/Creatinine Ratio 45 (6-20) Glucose Level 92mg/dL (70-99) Calcium Level 9.2mg/dL (8.5-10.1) Total Bilirubin 0.4mg/dL (0.2-1.0) Aspartate Amino Transf (AST/SGOT) 35U/L (15-37) Alanine Aminotransferase (ALT/SGPT) 66U/L (16-63) Alkaline Phosphatase 59U/L (46-116) Total Protein 6.2g/dL (6.4-8.2) Albumin 2.9g/dL (3.4-5.0) Albumin/Globulin Ratio 0.9 (1.0-1.7) Medications Active Scripts Medications Dose Route/Sig Days Date Category Dilantin (Phenytoin Sodium Extended) 100 Mg Capsule 200 Mg PO HS 02/08/15 Rx Levaquin (Levofloxacin) 500 Mg Tablet 500 Mg PO DAILY06 02/08/15 Rx Prednisone 20 Mg Tablet 40 Mg PO DAILY 02/08/15 Rx Saline Nasal [place] (Sodium Chloride) 30 Ml [place] 30 Ml NS PRN PRN 02/04/15 Reported Proair Hfa Inhaler (Albuterol Sulfate) 8.5 Gm Hfa.aer.ad 2 Puff IH PRN Q4-6HRS PRN 02/04/15 Reported Cyanocobalamin Injection (Cyanocobalamin (Vitamin B-12)) 1,000 Mcg/1 Ml Vial 1,000 Mcg IJ QMONTH 02/04/15 Reported Hydrocodone-Apap 7.5-325 (Hydrocodone Bit/Acetaminophen) 1 Each Tablet 1 Tab PO BID PRN 02/04/15 Reported Albuterol Sulfate Conc Neb Soln (Albuterol Sulfate) 2.5 Mg/0.5 Ml Vial.neb 2.5 Mg IH PRN Q4HRS PRN 08/16/13 Reported NITRO-DUR 0.6mg/hr (Nitroglycerin) 1 Each Patch.td24 1 Each TD DAILY 08/16/13 Reported Symbicort 160-4.5 Mcg Inhaler (Budesonide/Formoterol Fumarate) 10.2 Gm Hfa.aer.ad 10.2 Gm IH BID 08/16/13 Reported Aspirin 81 Mg Tab.chew 243 Mg PO DAILY 08/16/13 Reported Metoprolol Succinate ( Xl ) (Metoprolol Succinate) 25 Mg Tab.er.24h 25 Mg PO DAILY 08/16/13 Reported NITROGLYCERIN SubLingual (Nitroglycerin) 0.4 Mg Tab.subl 0.4 Mg SL PRN 1X 08/16/13 Reported Folic Acid 1 Mg Tablet 1 Mg PO DAILY 08/16/13 Reported Lisinopril 5 Mg Tablet 5 Mg PO DAILY 08/16/13 Reported Spiriva (Tiotropium [place]) 18 Mcg Cap.w.dev 18 Mcg IH DAILY 08/16/13 Reported Simvastatin 40 Mg Tablet 40 Mg PO HS 08/16/13 Reported Comments CXR/ reviewed, ett ok, b lat hyperinflation ct reviewed, Slight increase in size of noncalcified pulmonary nodule in the left upper lobe relative to an exam 02/03/2016. Small primary malignancy is not excluded. Impression . 1. Akgab-im-lgzutso hypercapnic respiratory failure secondary to AECOPD EXTUBATED 09/10 2. History of oxygen-dependent chronic obstructive pulmonary disease. 3. 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 4. History of lung nodule slightly bigger on recent exam, in past patient was not deemed to be a candidate for biopsy 5. Pneumonia 6. septic shock 7. Metabolic Acidosis Plan . PT REQUIRES BIPAP, STATUS IS TENUOUS HE WISHES TO BE RE-INTUBATED IF NEEDED, DOES NOT WISH PROLONG VENT SUPPORT OR TRACH NEBS 02 DEESCALATE ANTIBX PER ID REPEAT CT OF CHEST IN 4 MONTHS DOBBHOFF IF FAILS SWALLOW CASE D/W DR PAGAN, ERMA NGUYEN MD Sep 10, 2016 09:38
[2016-09-10 09:55] LABS: PLT ESTIMATE ADEQUATE (ADEQUATE)
--- NOTE | 2016-09-10 10:38 | PDOC ---
PROGRESS NOTES Subjective Subjective extubated yesterday on bipap Objective Objective Vital Signs Date Time Temp Pulse Resp B/P Pulse Ox O2 Delivery O2 Flow Rate FiO2 09/10/16 08:41 96 BiPAP/CPAP 09/10/16 06:24 101 188/101 09/10/16 06:00 22 09/10/16 04:00 97.5 97.5 09/09/16 13:25 10.0 Intake and Output 09/10/16 07:00 Intake Total 177.00 ml Output Total 5850 ml Balance -5673.00 ml IV Total 177.00 ml Tube Feeding 0 ml Output Urine Total 5850 ml Gastric Drainage Total 0 ml Physical Exam Abdomen: Soft Heart: Regular rate, Normal S1, Normal S2, Other (heart tones difficult to appreciapte ) Extremities: Normal pulses, Other (edema) General: Other (intubated/sedated) HEENT: Atraumatic, Mucous membr. moist/pink Lungs: Clear to auscultation, Other (intubated ) MUSCULOSKELETAL: Osteoarthritic changes both hands Neck: Supple Neuro: Normal tone Psych/Mental Status: Other (unable to assess ) Skin: No rashes, No significant lesion COMMENT aashish, on BIPAP Diagnosis Problem List Problems Medical Problems: (1) COPD (chronic obstructive pulmonary disease) with acute bronchitis Status: Acute Assessment Assessment Problems Medical Problems: (1) COPD (chronic obstructive pulmonary disease) with acute bronchitis Status: Acute FINAL IMPRESSION: extubated 09/09/16 on BIPAP edema extremities . Ac resp failure on vent Fever with sepsis . Hypotension on levophed . borderline elevated troponin. 1. Acute respiratory failure, requiring intubation 09/01/16 2. Acute chronic obstructive pulmonary disease with acute exacerbation failed BIPAP. 3. Hypotension. 4. Hyperlipidemia. 5. History of seizures, on Dilantin. 6.h/o Lung surgery PLAN:extubated 09/09/16 on Bipap. speech to see today. select transfer tomorrow iv lasix , swelling down picc line placed . iv steroids labs wbc 15 reactive. c/s neg. influenza -neg trying weaning parameters not ready to extubate,hyperventilating iv antibiotics echo good LVF vent management intubation 09/01/16 ct chest inc in lung nodules left side. spoke with pulmonary. iv antibiotics.iv steroids critically ill Problems: Plan Plan of Care Problems Medical Problems: (1) COPD (chronic obstructive pulmonary disease) with acute bronchitis Status: Acute Comment Review of Relevant I have reviewed the following items reggie (where applicable) has been applied. Labs Laboratory Tests Test 09/09/16 13:29 09/09/16 17:59 09/10/16 05:47 Glucose (Fingerstick) 130mg/dL (70-99) 144mg/dL (70-99) White Blood Count 14.6x10^3/uL (4.0-11.0) Red Blood Count 4.07x10^6/uL (4.30-5.70) Hemoglobin 13.0g/dL (13.0-17.5) Hematocrit 38.8% (39.0-53.0) Mean Corpuscular Volume 95fL (79-100) Mean Corpuscular Hemoglobin 32pg (25-35) Mean Corpuscular Hemoglobin Concent 34g/dL (31-37) Red Cell Distribution Width 14.1% (11.5-14.5) Platelet Count 202x10^3/uL (140-400) Neutrophils (%) (Auto) 79% (31-73) Lymphocytes (%) (Auto) 9% (24-48) Monocytes (%) (Auto) 12% (0-9) Eosinophils (%) (Auto) 0% (0-3) Basophils (%) (Auto) 0% (0-3) Neutrophils # (Auto) 11.5x10^3uL (1.8-7.7) Lymphocytes # (Auto) 1.3x10^3/uL (1.0-4.8) Monocytes # (Auto) 1.7x10^3/uL (0.0-1.1) Eosinophils # (Auto) 0.0x10^3/uL (0.0-0.7) Basophils # (Auto) 0.0x10^3/uL (0.0-0.2) Segmented Neutrophils % 80% (35-66) Band Neutrophils % 4% (0-9) Lymphocytes % 7% (24-48) Monocytes % 9% (0-10) Platelet Estimate Adequate (ADEQUATE) Sodium Level 145mmol/L (136-145) Potassium Level 4.1mmol/L (3.5-5.1) Chloride Level 104mmol/L (98-107) Carbon Dioxide Level 34mmol/L (21-32) Anion Gap 7 (6-14) Blood Urea Nitrogen 36mg/dL (8-26) Creatinine 0.8mg/dL (0.7-1.3) Estimated GFR (Cockcroft-Gault) 97.0 BUN/Creatinine Ratio 45 (6-20) Glucose Level 92mg/dL (70-99) Calcium Level 9.2mg/dL (8.5-10.1) Total Bilirubin 0.4mg/dL (0.2-1.0) Aspartate Amino Transf (AST/SGOT) 35U/L (15-37) Alanine Aminotransferase (ALT/SGPT) 66U/L (16-63) Alkaline Phosphatase 59U/L (46-116) Total Protein 6.2g/dL (6.4-8.2) Albumin 2.9g/dL (3.4-5.0) Albumin/Globulin Ratio 0.9 (1.0-1.7) Microbiology 09/02/16 Blood Culture - Final, Complete NO GROWTH AFTER 5 DAYS 09/02/16 Gram Stain - Final, Complete 09/02/16 Urine Culture - Final, Complete 09/02/16 Urine Culture Result 1 (SHIRA) - Final, Complete Medications Current Medications Hydralazine HCl (Apresoline) 10 mg PRN Q3HRS PRN IVP ELEVATED BP, SEE COMMENTS Last administered on 09/10/16 06:24; Start 09/09/16 at 13:30 Lorazepam (Ativan) 0.5 mg PRN Q6HRS PRN IV ANXIETY / AGITATION Last administered on 09/09/16 21:44; Start 09/09/16 at 20:00 Vitals/I & O Vital Sign - Last 24 Hours 09/09/16 09/09/16 09/09/16 09/09/16 11:00 11:30 12:00 12:00 Temp 97.8 97.8 Pulse 64 74 Resp 28 32 B/P 132/71 144/75 Pulse Ox 100 100 O2 Delivery Ventilator Ventilator Mechanical Ventilator Ventilator 09/09/16 09/09/16 09/09/16 09/09/16 13:00 13:06 13:25 13:31 Pulse 90 100 Resp 28 B/P 215/103 196/93 Pulse Ox 100 100 96 O2 Delivery Ventilator Ventilator Aerosol Mask O2 Flow Rate 10.0 09/09/16 09/09/1609/09/09/09/16 13:35 14:00 15:00 15:53 Pulse 102 Resp 27 26 B/P 152/87 174/77 Pulse Ox 97 94 92 10 O2 Delivery BiPAP/CPAP BiPAP/CPAP BiPAP/CPAP BiPAP/CPAP 09/09/16 09/09/16 09/09/16 09/09/16 16:00 16:00 17:00 17:53 Temp 98.1 98.1 Pulse 104 103 98 Resp 22 19 B/P 165/89 168/88 168/88 Pulse Ox 95 96 O2 Delivery Bi-pap BiPAP/CPAP BiPAP/CPAP 09/09/16 09/09/16 09/09/16 09/09/16 19:00 19:35 20:00 20:00 Temp 97.7 97.7 Pulse 116 107 Resp 16 19 B/P 212/98 153/80 Pulse Ox 96 97 96 O2 Delivery BiPAP/CPAP BiPAP/CPAP Bi-pap BiPAP/CPAP 09/09/16 09/09/16 09/09/16 09/09/16 21:00 21:00 22:00 23:00 Pulse 107 109 103 Resp 18 20 23 B/P 155/92 139/82 156/98 Pulse Ox 96 95 97 97 O2 Delivery BiPAP/CPAP BiPAP/CPAP BiPAP/CPAP BiPAP/CPAP 09/09/1609/09/09/09/09/10/16 23:18 23:32 23:51 00:00 Temp 97.6 97.6 Pulse 100 100 Resp 20 B/P 198/97 198/97 Pulse Ox 96 97 O2 Delivery BiPAP/CPAP Bi-pap BiPAP/CPAP 09/10/1609/10/09/10/17 09/10/16 01:00 01:10 02:00 02:44 Pulse 115 114 Resp 36 28 B/P 144/83 159/111 Pulse Ox 94 95 98 95 O2 Delivery BiPAP/CPAP BiPAP/CPAP BiPAP/CPAP BiPAP/CPAP 09/10/09/10/17 09/10/17 09/10/16 03:00 04:00 04:00 05:00 Temp 97.5 97.5 Pulse 116 84 103 Resp 28 20 17 B/P 170/104 164/88 168/109 Pulse Ox 98 98 97 O2 Delivery BiPAP/CPAP BiPAP/CPAP Bi-pap BiPAP/CPAP 09/10/16 09/10/16 09/10/16 09/10/16 05:15 06:00 06:24 07:35 Pulse 103 101 Resp 22 B/P 196/97 188/101 Pulse Ox 99 96 96 O2 Delivery BiPAP/CPAP BiPAP/CPAP BiPAP/CPAP 09/10/16 08:41 Pulse Ox 96 O2 Delivery BiPAP/CPAP Intake and Output 09/09/16 09/09/16 09/10/16 15:00 23:00 07:00 Intake Total 0 ml 177.00 ml Output Total 2250 ml 2650 ml 950 ml Balance -2250 ml -2473.00 ml -950 ml CATALINO PAGAN MD Sep 10, 2016 10:38
[2016-09-10] MEDS: LORAZEPAM 0.5 MG TABLET. PO SCH ×2 (12:00→21:00)
[2016-09-10] MEDS: LORAZEPAM 2 MG/ML VIAL IV PRN (12:35)
[2016-09-10] MEDS: FENTANYL PF 100 MCG/2 ML VIAL. IV PRN (16:35)
--- NOTE | 2016-09-10 19:44 | RAD ---
PROCEDURE Abdomen radiograph. HISTORY Dobbhoff tube placement. COMPARISON September 01, 2016. FINDINGS AP portable upright view of the abdomen. Lower pelvis has been excluded from the examination. Dobbhoff tube is present with tip projecting at the proximal body of the stomach. Visualized bowel gas pattern is without evidence of obstruction. No pneumoperitoneum is seen. IMPRESSION Dobbhoff tube tip projects at proximal body of the stomach. Electronically signed by: Man Clifford MD (Sep 10, 2016 19:42:43)
[2016-09-10] MEDS: SIMVASTATIN 40 MG TABLET. PO SCH (21:00)
[2016-09-11] VITALS (10 sets, daily range): BP systolic 128–196; BP diastolic 65–95
[2016-09-11] MEDS: FENTANYL PF 100 MCG/2 ML VIAL. IV PRN ×3 (00:14→17:12)
[2016-09-11] MEDS ORDERED: ALTEPLASE 2 MG VIAL INT CAT ONE ×3 (06:00→07:00)
[2016-09-11] MEDS: methylPREDNISolone SOD SUCC PF 125 MG/2 ML VIAL. IV SCH (06:07)
[2016-09-11 06:30] LABS: ALBUMIN 2.9 g/dL (3.4-5.0); ALBUMIN/GLOBULIN RATIO 0.9 (1.0-1.7); CALCIUM 8.9 mg/dL (8.5-10.1); TOTAL BILIRUBIN 0.5 mg/dL (0.2-1.0); TOTAL PROTEIN 6.2 g/dL (6.4-8.2)
[2016-09-11] MEDS: ALBUTEROL SULFATE 2.5 MG/3 ML NEBU. NEB SCH ×3 (07:30→15:45)
[2016-09-11] MEDS: BUDESONIDE 0.5 MG/2 ML NEBU NEB SCH (07:30)
[2016-09-11] MEDS: INSULIN ASPART 300 UNITS/3 ML INSULN.PEN SQ SCH (08:00)
[2016-09-11] MEDS: FUROSEMIDE 40 MG/4 ML VIAL IVP SCH (08:08)
[2016-09-11] MEDS: ASPIRIN 81 MG TAB.CHEW PO SCH (08:08)
[2016-09-11] MEDS: FOLIC ACID 1 MG TABLET PO SCH (08:08)
[2016-09-11] MEDS: PANTOPRAZOLE IV PUSH 40 MG VIAL. IVP SCH (08:08)
[2016-09-11] MEDS: LORAZEPAM 0.5 MG TABLET. PO SCH (08:08)
[2016-09-11] MEDS: PHENYTOIN 100 MG/4 ML ORAL.SUSP. PEG SCH (08:08)
[2016-09-11] MEDS: CHLORHEXIDINE 0.12% 15 ML MOUTHWASH. SWSP SCH (08:09)
--- NOTE | 2016-09-11 08:34 | PDOC ---
Infectious Disease Note Subjective Subjective awake, some sob ROS ROS GEN: Denies fevers, chills, sweats HEENT: Denies blurred vision, sore throat CV: Denies chest pain GI: Denies n/v/d NEURO: Denies confusion, dizziness MSK: Denies weakness, joint pain/swelling Vital Sign Vital Signs Vital Signs Date Time Temp Pulse Resp B/P Pulse Ox O2 Delivery O2 Flow Rate FiO2 09/11/16 07:30 94 BiPAP/CPAP 09/11/16 06:00 97 20 168/86 09/11/16 04:00 97.8 97.8 09/10/16 17:05 10.0 Physical Exam PHYSICAL EXAM GENERAL: , Alert HEENT: PERRL, OC/OP NECK: Supple, no JVD, no LN LUNGS: Clear HEART: S1S2, no gallop, no murmur ABD: Soft, NT, no organomegaly, no rebound EXT: No edema, no cyanosis [employer]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, oriented x 3, no focal neurologic deficit SKIN: No rash IV: ok Labs Lab Laboratory Tests Test 09/10/16 12:33 09/11/16 06:05 Glucose (Fingerstick) 88mg/dL (70-99) Sodium Level 146mmol/L (136-145) Potassium Level 4.0mmol/L (3.5-5.1) Chloride Level 104mmol/L (98-107) Carbon Dioxide Level 34mmol/L (21-32) Anion Gap 8 (6-14) Blood Urea Nitrogen 42mg/dL (8-26) Creatinine 1.0mg/dL (0.7-1.3) Estimated GFR (Cockcroft-Gault) 75.0 BUN/Creatinine Ratio 42 (6-20) Glucose Level 107mg/dL (70-99) Calcium Level 8.9mg/dL (8.5-10.1) Total Bilirubin 0.5mg/dL (0.2-1.0) Aspartate Amino Transf (AST/SGOT) 26U/L (15-37) Alanine Aminotransferase (ALT/SGPT) 54U/L (16-63) Alkaline Phosphatase 67U/L (46-116) Total Protein 6.2g/dL (6.4-8.2) Albumin 2.9g/dL (3.4-5.0) Albumin/Globulin Ratio 0.9 (1.0-1.7) Micro culture neg Objective Assessment Fever -better Hypotension better of pressors Acute resp failure -Intubated AECOPD - on steroids H/o CAD Plan Plan of Care Cont levaquin, Monitor labs/cultures JAVI OSCAR MD Sep 11, 2016 08:34
[2016-09-11] MEDS: ENOXAPARIN 40 MG/0.4 ML DISP.SYRIN. SQ SCH (11:41)
[2016-09-11] MEDS ORDERED: NITROGLYCERIN 0.4MG/HR PATCH. TD SCH (12:00)
[2016-09-11] MEDS ORDERED: LIDOCAINE (700MG/PATCH) PATCH. TD SCH (12:00)
--- NOTE | 2016-09-11 12:57 | PDOC ---
PULMONARY PROGRESS NOTES Subjective PT SEEN PRIOR TO D/C OFF BIPAP WANTING TO GO HOME WITH HOSPICE Vitals Vital Signs Date Time Temp Pulse Resp B/P Pulse Ox O2 Delivery O2 Flow Rate FiO2 09/11/16 12:27 97 BiPAP/CPAP 09/11/16 06:00 97 20 168/86 09/11/16 04:00 97.8 97.8 09/10/16 17:05 10.0 General: Alert HEENT: Other (nc at, perrl, orally intubated, nose clear) Lungs: Other (decrease bs) Cardiovascular: S1, S2 Abdomen: Soft, Non-tender, Other (no mass) Neuro Exam: Alert Extremities: No Edema Skin: Warm Labs Laboratory Tests Test 09/09/16 13:29 09/09/16 17:59 09/10/16 05:47 09/10/16 12:33 Glucose (Fingerstick) 130mg/dL (70-99) 144mg/dL (70-99) 88mg/dL (70-99) White Blood Count 14.6x10^3/uL (4.0-11.0) Red Blood Count 4.07x10^6/uL (4.30-5.70) Hemoglobin 13.0g/dL (13.0-17.5) Hematocrit 38.8% (39.0-53.0) Mean Corpuscular Volume 95fL (79-100) Mean Corpuscular Hemoglobin 32pg (25-35) Mean Corpuscular Hemoglobin Concent 34g/dL (31-37) Red Cell Distribution Width 14.1% (11.5-14.5) Platelet Count 202x10^3/uL (140-400) Neutrophils (%) (Auto) 79% (31-73) Lymphocytes (%) (Auto) 9% (24-48) Monocytes (%) (Auto) 12% (0-9) Eosinophils (%) (Auto) 0% (0-3) Basophils (%) (Auto) 0% (0-3) Neutrophils # (Auto) 11.5x10^3uL (1.8-7.7) Lymphocytes # (Auto) 1.3x10^3/uL (1.0-4.8) Monocytes # (Auto) 1.7x10^3/uL (0.0-1.1) Eosinophils # (Auto) 0.0x10^3/uL (0.0-0.7) Basophils # (Auto) 0.0x10^3/uL (0.0-0.2) Segmented Neutrophils % 80% (35-66) Band Neutrophils % 4% (0-9) Lymphocytes % 7% (24-48) Monocytes % 9% (0-10) Platelet Estimate Adequate (ADEQUATE) Sodium Level 145mmol/L (136-145) Potassium Level 4.1mmol/L (3.5-5.1) Chloride Level 104mmol/L (98-107) Carbon Dioxide Level 34mmol/L (21-32) Anion Gap 7 (6-14) Blood Urea Nitrogen 36mg/dL (8-26) Creatinine 0.8mg/dL (0.7-1.3) Estimated GFR (Cockcroft-Gault) 97.0 BUN/Creatinine Ratio 45 (6-20) Glucose Level 92mg/dL (70-99) Calcium Level 9.2mg/dL (8.5-10.1) Total Bilirubin 0.4mg/dL (0.2-1.0) Aspartate Amino Transf (AST/SGOT) 35U/L (15-37) Alanine Aminotransferase (ALT/SGPT) 66U/L (16-63) Alkaline Phosphatase 59U/L (46-116) Total Protein 6.2g/dL (6.4-8.2) Albumin 2.9g/dL (3.4-5.0) Albumin/Globulin Ratio 0.9 (1.0-1.7) Test 09/11/16 06:05 Sodium Level 146mmol/L (136-145) Potassium Level 4.0mmol/L (3.5-5.1) Chloride Level 104mmol/L (98-107) Carbon Dioxide Level 34mmol/L (21-32) Anion Gap 8 (6-14) Blood Urea Nitrogen 42mg/dL (8-26) Creatinine 1.0mg/dL (0.7-1.3) Estimated GFR (Cockcroft-Gault) 75.0 BUN/Creatinine Ratio 42 (6-20) Glucose Level 107mg/dL (70-99) Calcium Level 8.9mg/dL (8.5-10.1) Total Bilirubin 0.5mg/dL (0.2-1.0) Aspartate Amino Transf (AST/SGOT) 26U/L (15-37) Alanine Aminotransferase (ALT/SGPT) 54U/L (16-63) Alkaline Phosphatase 67U/L (46-116) Total Protein 6.2g/dL (6.4-8.2) Albumin 2.9g/dL (3.4-5.0) Albumin/Globulin Ratio 0.9 (1.0-1.7) Laboratory Tests Test 09/11/16 06:05 Sodium Level 146mmol/L (136-145) Potassium Level 4.0mmol/L (3.5-5.1) Chloride Level 104mmol/L (98-107) Carbon Dioxide Level 34mmol/L (21-32) Anion Gap 8 (6-14) Blood Urea Nitrogen 42mg/dL (8-26) Creatinine 1.0mg/dL (0.7-1.3) Estimated GFR (Cockcroft-Gault) 75.0 BUN/Creatinine Ratio 42 (6-20) Glucose Level 107mg/dL (70-99) Calcium Level 8.9mg/dL (8.5-10.1) Total Bilirubin 0.5mg/dL (0.2-1.0) Aspartate Amino Transf (AST/SGOT) 26U/L (15-37) Alanine Aminotransferase (ALT/SGPT) 54U/L (16-63) Alkaline Phosphatase 67U/L (46-116) Total Protein 6.2g/dL (6.4-8.2) Albumin 2.9g/dL (3.4-5.0) Albumin/Globulin Ratio 0.9 (1.0-1.7) Medications Active Scripts Medications Dose Route/Sig Days Date Category Dilantin (Phenytoin Sodium Extended) 100 Mg Capsule 200 Mg PO HS 02/08/15 Rx Levaquin (Levofloxacin) 500 Mg Tablet 500 Mg PO DAILY06 02/08/15 Rx Prednisone 20 Mg Tablet 40 Mg PO DAILY 02/08/15 Rx Saline Nasal Sargeant (Sodium Chloride) 30 Ml Sargeant 30 Ml NS PRN PRN 02/04/15 Reported Proair Hfa Inhaler (Albuterol Sulfate) 8.5 Gm Hfa.aer.ad 2 Puff IH PRN Q4-6HRS PRN 02/04/15 Reported Cyanocobalamin Injection (Cyanocobalamin (Vitamin B-12)) 1,000 Mcg/1 Ml Vial 1,000 Mcg IJ QMONTH 02/04/15 Reported Hydrocodone-Apap 7.5-325 (Hydrocodone Bit/Acetaminophen) 1 Each Tablet 1 Tab PO BID PRN 02/04/15 Reported Albuterol Sulfate Conc Neb Soln (Albuterol Sulfate) 2.5 Mg/0.5 Ml Vial.neb 2.5 Mg IH PRN Q4HRS PRN 08/16/13 Reported NITRO-DUR 0.6mg/hr (Nitroglycerin) 1 Each Patch.td24 1 Each TD DAILY 08/16/13 Reported Symbicort 160-4.5 Mcg Inhaler (Budesonide/Formoterol Fumarate) 10.2 Gm Hfa.aer.ad 10.2 Gm IH BID 08/16/13 Reported Aspirin 81 Mg Tab.chew 243 Mg PO DAILY 08/16/13 Reported Metoprolol Succinate ( Xl ) (Metoprolol Succinate) 25 Mg Tab.er.24h 25 Mg PO DAILY 08/16/13 Reported NITROGLYCERIN SubLingual (Nitroglycerin) 0.4 Mg Tab.subl 0.4 Mg SL PRN 1X 08/16/13 Reported Folic Acid 1 Mg Tablet 1 Mg PO DAILY 08/16/13 Reported Lisinopril 5 Mg Tablet 5 Mg PO DAILY 08/16/13 Reported Spiriva (Tiotropium [place]) 18 Mcg Cap.w.dev 18 Mcg IH DAILY 08/16/13 Reported Simvastatin 40 Mg Tablet 40 Mg PO HS 08/16/13 Reported Comments CXR/ reviewed, ett ok, b lat hyperinflation ct reviewed, Slight increase in size of noncalcified pulmonary nodule in the left upper lobe relative to an exam 02/03/2016. Small primary malignancy is not excluded. Impression . 1. [id number] hypercapnic respiratory failure secondary to AECOPD EXTUBATED 09/10 2. History of oxygen-dependent chronic obstructive pulmonary disease. 3. 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 4. History of lung nodule slightly bigger on recent exam, in past patient was not deemed to be a candidate for biopsy 5. Pneumonia 6. septic shock 7. Metabolic Acidosis Plan . PT TO D/C HOME WITH HOSPICE ERMA MARTINS MD Sep 11, 2016 12:57
--- NOTE | 2016-09-11 15:38 | PDOC ---
PROGRESS NOTES Subjective Subjective wanted to go home with hospice Objective Objective Vital Signs Date Time Temp Pulse Resp B/P Pulse Ox O2 Delivery O2 Flow Rate FiO2 09/11/16 13:50 97 10.0 09/11/16 12:27 BiPAP/CPAP 09/11/16 06:00 97 20 168/86 09/11/16 04:00 97.8 97.8 Intake and Output 09/11/16 07:00 Output Total 3525 ml Balance -3525 ml Output Urine Total 3525 ml Physical Exam Abdomen: Soft Heart: Regular rate, Normal S1, Normal S2, Other (heart tones difficult to appreciapte ) Extremities: Normal pulses, Other (edema) General: Other (intubated/sedated) HEENT: Atraumatic, Mucous membr. moist/pink Lungs: Clear to auscultation, Other (intubated ) MUSCULOSKELETAL: Osteoarthritic changes both hands Neck: Supple Neuro: Normal tone Psych/Mental Status: Other (unable to assess ) Skin: No rashes, No significant lesion COMMENT aashish on BIPAP Diagnosis Problem List Problems Medical Problems: (1) COPD (chronic obstructive pulmonary disease) with acute bronchitis Status: Acute Assessment Assessment Problems Medical Problems: (1) COPD (chronic obstructive pulmonary disease) with acute bronchitis Status: Acute FINAL IMPRESSION:wanted comfort care extubated 09/09/16 on BIPAP edema extremities . Ac resp failure on vent Fever with sepsis . Hypotension on levophed . borderline elevated troponin. 1. Acute respiratory failure, requiring intubation 09/01/16 2. Acute chronic obstructive pulmonary disease with acute exacerbation failed BIPAP. 3. Hypotension. 4. Hyperlipidemia. 5. History of seizures, on Dilantin. 6.h/o Lung surgery PLAN: home with hospice palliative team consult. extubated 09/09/16 on Bipap. DNR poor prognosis Problems: Plan Plan of Care Problems Medical Problems: (1) COPD (chronic obstructive pulmonary disease) with acute bronchitis Status: Acute Comment Review of Relevant I have reviewed the following items reggie (where applicable) has been applied. Labs Laboratory Tests Test 09/11/16 06:05 Sodium Level 146mmol/L (136-145) Potassium Level 4.0mmol/L (3.5-5.1) Chloride Level 104mmol/L (98-107) Carbon Dioxide Level 34mmol/L (21-32) Anion Gap 8 (6-14) Blood Urea Nitrogen 42mg/dL (8-26) Creatinine 1.0mg/dL (0.7-1.3) Estimated GFR (Cockcroft-Gault) 75.0 BUN/Creatinine Ratio 42 (6-20) Glucose Level 107mg/dL (70-99) Calcium Level 8.9mg/dL (8.5-10.1) Total Bilirubin 0.5mg/dL (0.2-1.0) Aspartate Amino Transf (AST/SGOT) 26U/L (15-37) Alanine Aminotransferase (ALT/SGPT) 54U/L (16-63) Alkaline Phosphatase 67U/L (46-116) Total Protein 6.2g/dL (6.4-8.2) Albumin 2.9g/dL (3.4-5.0) Albumin/Globulin Ratio 0.9 (1.0-1.7) Microbiology 09/02/16 Blood Culture - Final, Complete NO GROWTH AFTER 5 DAYS 09/02/16 Gram Stain - Final, Complete 09/02/16 Urine Culture - Final, Complete 09/02/16 Urine Culture Result 1 (SHIRA) - Final, Complete Medications Current Medications Alteplase, Recombinant (Cathflo) 2 mg 1X ONCE INT CAT Last administered on 05:24; Start 09/11/16 at 06:00; Stop 09/11/16 at 06:01; Status DC Alteplase, Recombinant (Cathflo) 2 mg 1X ONCE INT CAT Last administered on 06:16; Start 09/11/16 at 07:00; Stop 09/11/16 at 07:01; Status DC Alteplase, Recombinant (Cathflo) 2 mg 1X ONCE INT CAT Last administered on 06:16; Start 09/11/16 at 07:00; Stop 09/11/16 at 07:01; Status DC Fentanyl Citrate (Fentanyl 2ml Vial) 25 mcg PRN Q2HR PRN IV PAIN Last administered on 09/11/16 13:50; Start 09/10/16 at 16:30 Lidocaine (Lidoderm) 1 patch DAILY TD Last administered on 09/11/16 11:41; Start 09/11/16 at 12:00 Nitroglycerin (Nitro-Dur 0.4mg) 1 patch DAILY TD Last administered on t 11:41; Start 09/11/16 at 12:00 Vitals/I & O Vital Sign - Last 24 Hours 09/10/16 09/10/16 09/10/16 09/10/16 16:00 16:00 16:34 16:35 Pulse 103 92 Resp 22 20 B/P 156/91 156/91 Pulse Ox 96 97 O2 Delivery BiPAP/CPAP Bi-pap BiPAP/CPAP 09/10/16 09/10/16 09/10/16 09/10/16 16:59 17:00 17:05 18:00 Pulse 103 103 Resp 22 22 B/P 127/76 129/75 Pulse Ox 97 96 96 O2 Delivery BiPAP/CPAP BiPAP/CPAP BiPAP/CPAP O2 Flow Rate 10.0 09/10/16 09/10/16 09/10/16 09/10/16 19:00 20:00 20:00 20:07 Temp 97.9 97.9 Pulse 100 90 Resp 20 18 B/P 116/72 134/77 Pulse Ox 97 96 96 O2 Delivery BiPAP/CPAP Bi-pap BiPAP/CPAP BiPAP/CPAP 09/10/16 09/10/16 09/10/16 09/10/16 21:00 22:00 23:00 23:37 Pulse 94 94 98 Resp 19 19 20 B/P 141/82 146/79 132/72 Pulse Ox 97 95 97 98 O2 Delivery BiPAP/CPAP BiPAP/CPAP BiPAP/CPAP BiPAP/CPAP 09/10/16 09/11/16 09/11/16 09/11/16 23:59 00:00 00:14 00:44 Temp 98.2 98.2 Pulse 90 Resp 19 26 19 B/P 134/70 Pulse Ox 97 98 98 O2 Delivery Bi-pap BiPAP/CPAP BiPAP/CPAP BiPAP/CPAP 09/11/16 09/11/16 09/11/16 09/11/16 01:00 01:43 02:00 03:00 Pulse 96 89 88 Resp 22 20 19 B/P 128/65 147/83 148/86 Pulse Ox 97 98 97 97 O2 Delivery BiPAP/CPAP BiPAP/CPAP BiPAP/CPAP BiPAP/CPAP 09/11/16 09/11/16 09/11/16 09/11/16 03:50 04:00 04:00 05:00 Temp 97.8 97.8 Pulse 92 94 Resp 20 20 B/P 169/92 137/87 Pulse Ox 97 98 95 O2 Delivery BiPAP/CPAP Bi-pap BiPAP/CPAP BiPAP/CPAP 09/11/16 09/11/16 09/11/16 09/11/16 05:26 06:00 07:30 10:50 Pulse 97 Resp 20 B/P 168/86 Pulse Ox 94 94 94 95 O2 Delivery BiPAP/CPAP BiPAP/CPAP BiPAP/CPAP BiPAP/CPAP 09/11/16 09/11/16 12:27 13:50 Pulse Ox 97 97 O2 Delivery BiPAP/CPAP O2 Flow Rate 10.0 Intake and Output 09/10/16 09/10/16 09/11/16 15:00 23:00 07:00 Output Total 2750 ml 775 ml Balance -2750 ml -775 ml CATALINO PAGAN MD Sep 11, 2016 15:38
--- NOTE | 2016-09-11 18:43 | PDOC2 ---
PALLIATIVE CARE Palliative Care Note Palliative Care Consult requested by Dr. Gomez to address goals of care Diagnosis: Respiratory Failure; BiPap End Stage COPD, Bronchitis Patient scheduled to go to [facility] today but telling staff and family he wants to go home to . 1530 Met with Nahomy, daughter Thalia, son Pako and his . Reviewed medica condition Patient is adamant that he wants to go home. Understands he nearing the end of his life and "just want to be Home" Patient and family understands feeding tube would be discontinued. and medications would be available for his comfort Patient request that he continue the BiPap at home. Discussed Hospice. Patient and family have no preference but want to continue the BiPap Discussed Code Status: Patient does not want re-intubation and after discussion wants no resuscitation. Family supportive of his wished. Outside the Hospital DNR/DNI form completed. Alfreda MILLS assisting with discharge plan. Family has no preference of hospice agency. Plan: Home with Hospice. DME: BiPap \\ bed, oxygen DYLAN LEIGH Sep 11, 2016 18:43
--- NOTE | 2016-09-15 16:18 | PDOC ---
Provider Note Provider Note Discharge summary dictated. #[id number] CATALINO PAGAN MD Sep 15, 2016 16:18
--- NOTE | 2016-09-16 09:00 | DS ---
DATE OF DISCHARGE: 09/11/2016 REASON FOR ADMISSION TO THE HOSPITAL: Respiratory failure, COPD exacerbation. CONSULTATIONS: 1. Dr. Harris. 2. Dr. Mohan. 3. Cardiology, Dr. Dubois. 4. Pat from palliative team. PROCEDURES DONE: 1. Intubation, mechanical ventilation. 2. Echocardiogram. HOSPITAL COURSE: The patient is a 66-year-old male patient with history of severe COPD, came with shortness of breath and he also has history of CAD. The patient was seen by Cardiology and Pulmonology. He went into worsening respiratory failure with CO2 retention and was intubated and put on mechanical ventilator. He was in the ventilator at least for 1 week and after a prolonged period, he was successfully extubated and the patient had a talk with the palliative team. He did not want re-intubation, he wants to go home with hospice and the patient seen Cardiology, had echocardiogram, which shows ejection fraction 55%, normal left ventricular function. PA pressure was 45. So, the patient was discharged home with the hospice. FINAL DIAGNOSES: 1. Acute respiratory failure requiring intubation and mechanical ventilation. 2. Chronic obstructive pulmonary disease with acute exacerbation. 3. History of coronary artery disease, stable. 4. Febrile illness, combination of viral syndrome and pneumonia, HCAP. DISPOSITION: Home with hospice. CATALINO PAGAN MD DR: BERNA/nts JOB#: [id number] / [id number] I Masterson
== END 2016-09-11 17:30 | disposition hospice, home (50) | DRG 870 ==
LOC: ER 06:02 → 1 WEST ICU 07:10
PROVIDERS: ADMIT Internal Medicine; ATTEND Internal Medicine
PROC: 0BH17EZ Insertion of Endotracheal Airway into Trachea, Via Natural or Artificial Opening (ICD-10-PCS; 2016-09-01)
PROC: 5A1955Z Respiratory Ventilation, Greater than 96 Consecutive Hours (ICD-10-PCS; 2016-09-04)
PROC: 02HV33Z Insertion of Infusion Device into Superior Vena Cava, Percutaneous Approach (ICD-10-PCS; principal; 2016-09-08)
PROC: B5181ZA Fluoroscopy of Superior Vena Cava using Low Osmolar Contrast, Guidance (ICD-10-PCS; 2016-09-08)
PROC: 0BP1XDZ Removal of Intraluminal Device from Trachea, External Approach (ICD-10-PCS; 2016-09-09)
PROC: 5A09457 Assistance with Respiratory Ventilation, 24-96 Consecutive Hours, Continuous Positive Airway Pressure (ICD-10-PCS; 2016-09-11)
DX: A41.9 Sepsis, unspecified organism (principal); J18.9 Pneumonia, unspecified organism; R65.21 Severe sepsis with septic shock; J96.22 Acute and chronic respiratory failure with hypercapnia; J44.1 Chronic obstructive pulmonary disease with (acute) exacerbation; E87.2 Acidosis; J44.0 Chronic obstructive pulmonary disease with (acute) lower respiratory infection; E78.00 Pure hypercholesterolemia, unspecified; I10 Essential (primary) hypertension; E78.5 Hyperlipidemia, unspecified; Z82.49 Family history of ischemic heart disease and other diseases of the circulatory system; F17.210 Nicotine dependence, cigarettes, uncomplicated; G40.909 Epilepsy, unspecified, not intractable, without status epilepticus; M19.90 Unspecified osteoarthritis, unspecified site; I25.10 Atherosclerotic heart disease of native coronary artery without angina pectoris; I27.2 Other secondary pulmonary hypertension; J20.9 Acute bronchitis, unspecified; K59.00 Constipation, unspecified; Z51.5 Encounter for palliative care; Z66 Do not resuscitate; Z90.2 Acquired absence of lung [part of]; Z99.81 Dependence on supplemental oxygen; Z98.61 Coronary angioplasty status; Z79.899 Other long term (current) drug therapy
CPT/HCPCS: 36415; 36600; 71010; 71250; 74000; 80048; 80053; 80061; 80185; 80202; 82553; 82805; 82947; 83605; 83735; 83880; 84484; 85007; 85027; 87040; 87070; 87086; 87205; 87641; 87804; 93005; 93306; 94003; 94250; 94640; 94660; 96365; 96375; C9113; J0330; J0360; J1630; J1650; J1815; J1940; J1956; J2060; J2250; J2405; J2543; J2704; J2930; J2997; J3010; J3370; J7030; J7040; J7050; J7620; 99291-25

== ENCOUNTER 2016-09-11 20:20 | Emergency (ER) | payer MEDICARE ==
[~2016-09-11] VITALS: Ht 182.9 cm; Wt 70.8 kg
[2016-09-11 20:22] VITALS: BP 163/93
--- NOTE | 2016-09-11 21:45 | PHYS DOC ---
Past Medical History Past Medical History: COPD, High Cholesterol, Heart Disease, Hypertension, Lung Disease Additional Past Medical Histor: PT CURRENTLY ON HOSPICE Past Surgical History: Angioplasty, Tonsillectomy, Other Additional Past Surgical Histo: R)lung(lower lobe-removed.)L)hand,Back tumor removed,L)foot Alcohol Use: None Drug Use: None Adult General Chief Complaint Chief Complaint: SHORTNESS OF BREATH HPI HPI Patient is a 66 year old with a history significant for end-stage COPD who presents to the ER today for assistance with his BiPAP machine. Patient was discharged from the ICU earlier today and was sent home on hospice care with home BiPAP. Patient does not want any aggressive measures to be done and is requesting comfort care only as well as BiPAP to assist him with breathing. Patient adamantly refuses intubation. Patient came to the ER today because while he was at home his BiPAP machine that was set up with broken. The comp [employer] out to try to fix it and they were unable to. The plan was to send him to the ER to assist him with oxygenation until the BiPAP company was able to bring in a new BiPAP machine for him. I had a long discussion with the patient upon arrival and he wishes to resume with the current plan that was set forth for him with home hospice and home BiPAP. He does not want any further aggressive management in the hospital and his desire is to be released back home if at all possible if they're able sit up his BiPAP machine. We have spoken to his hospice nurse and she has informed us that the BiPAP company has come to his home and they have been able to treat his broken BiPAP machine with a new one. Patient denies any new symptoms today. Patient has any fevers shaking chills nausea vomiting diarrhea chest pain. Patient denies any change in his respiratory status. Patient again is refusing any further care in the ED patient is refusing IV stick or blood work. Patient is requesting that he be just treated with his BiPAP machine that we have here and be released home as soon as possible. Patient's physical exam is unremarkable. Patient is tachypneic however with the BiPAP machine he feels much improved. Upon arrival patient's pulse ox was 83% however with the BiPAP machine and his pulse ox is between 90-96%. Patient's lungs have diminished breath sounds throughout. There is no wheezing. Patient does appear to have a degree of air hunger while in the ER however he reports that this is baseline for him. This is a 66-year-old gentleman who presents to the ER for assistance with his end-stage COPD, on hospice, requesting to remain on hospice, and has been placed on BiPAP until his BiPAP machine at home can be replaced. Patient's BiPAP machine currently is replaced after speaking to hospice nurse the patient will be discharged home per his wishes. We will respect his wishes to not be aggressive, no blood work, and no aggressive treatment in the ER and we will discharge him to home per his request. Patient is alert awake oriented 3. Patient is presenting signs of competency as well as having the capacity to make this decision. Review of Systems Review of Systems Constitutional: Denies fever or chills [] Eyes: Denies change in visual acuity, redness, or eye pain [] All other review systems are negative except as documented in the history of present illness portion. Allergies Allergies Allergies Coded Allergies Type Severity Reaction Last Updated Verified No Known Drug Allergies 03/23/16 No Physical Exam Physical Exam Constitutional: Well developed, well nourished, no acute distress, non-toxic appearance. [] HENT: Normocephalic, atraumatic, bilateral external ears normal, oropharynx moist, no oral exudates, nose normal. [] Eyes: PERRLA, EOMI, conjunctiva normal, no discharge. [] Neck: Normal range of motion, no tenderness, supple, no stridor. [] Cardiovascular: Tachycardic, irregular. Lungs & Thorax: Diminished breath sounds throughout Abdomen: Bowel sounds normal, soft, no tenderness, no masses, no pulsatile masses. [] Skin: Warm, dry, no erythema, no rash. [] Back: No tenderness, no CVA tenderness. [] Extremities: No tenderness, no cyanosis, no clubbing, ROM intact, no edema. [] Neurologic: Alert and oriented X 3, normal motor function, normal sensory function, no focal deficits noted. [] Psychologic: Affect normal, judgement normal, mood normal. [] Current Patient Data Vital Signs Vital Signs Date Time Temp Pulse Resp B/P Pulse Ox O2 Delivery O2 Flow Rate FiO2 09/11/16 20:32 99 BiPAP/CPAP 09/11/16 20:22 98.2 99 24 163/93 98.2 EKG EKG [] Radiology/Procedures Radiology/Procedures [] Course & Med Decision Making Course & Med Decision Making Pertinent Labs and Imaging studies reviewed. (See chart for details) [] Dragon Disclaimer Dragon Disclaimer This electronic medical record was generated, in whole or in part, using a voice recognition dictation system. Departure Departure Impression: Primary Impression: COPD (chronic obstructive pulmonary disease) Disposition: 01 HOME, SELF-CARE Condition: STABLE Referrals: AMI COREY (PCP) Patient Instructions: CPAP and BIPAP, Chronic Obstructive Pulmonary Disease Additional Instructions: Please return to the ER if she change her mind about how aggressive he would like us to be with her medical care. CIRO JOHNS MD Sep 11, 2016 21:45
== END 2016-09-11 23:22 | disposition home or self-care (01) ==
LOC: ER 20:20
DX: J44.9 Chronic obstructive pulmonary disease, unspecified (principal); E78.00 Pure hypercholesterolemia, unspecified; I11.9 Hypertensive heart disease without heart failure; Z98.61 Coronary angioplasty status; Z98.890 Other specified postprocedural states
CPT/HCPCS: 94660; 99284-25